=== PATIENT | male | born 1985 | race Two or more races ===

== ENCOUNTER 2020-09-19 19:36 | Inpatient (IN) | payer MEDICAID ==
[~2020-09-19] VITALS: Ht 175.3 cm; Wt 70.3 kg
[2020-09-19 19:40] VITALS: BP 101/56
--- NOTE | 2020-09-19 19:40 | NUR ---
ED Nurse Note: Patient brought in by ambulance [id number] from home d/t n/v for 4 days. Patient also reports bloody stool and hematemesis, patient reports bright red blood in both stool and emesis. Patient reports hx of liver cirrhosis and states he was seen for same symptoms at [facility] and was discharged home. Patient aao x 4 and ambulatory with cane. Patient changed into gown and placed on solar energy system installer. no acute distress noted during assessment.
[2020-09-19] MEDS ORDERED: SandoSTATIN 50mcg Inj IVP ONE (19:45)
[2020-09-19] MEDS ORDERED: Pantoprazole 80 MG in NS 250 ML IV ONE (19:45)
[2020-09-19] MEDS ORDERED: Pantoprazole Inj IVP ONE (19:45)
[2020-09-19] MEDS ORDERED: cefTRIAXone 2 GM in NS 55 ML IVPB ONE (19:45)
--- NOTE | 2020-09-19 19:48 | Emergency Room Report ---
History of Present Illness General Chief Complaint: Diarrhea Source: Patient, EMS Present Illness HPI Patient is a 35-year-old male past medical history of liver cirrhosis, former alcohol abuser and hepatitis C presents to the ER complaining of bloody diarrhea. Patient states that he had several episodes of bloody diarrhea since this morning and this evening had onset of nausea and bloody vomitus. Patient d enies any fever or chills. He denies any abdominal pain. Patient states he has a history of similar symptoms in the past. Patient states that he has been seen at [facility] and is waiting to be placed on the liver transplant list. Patient states that his last drink was back in June. He denies any tremors. He denies any chest pain or shortness of breath. Allergies: Coded Allergies: No Known Allergies (Unverified , 09/19/20) COVID-19 Screening Contact w/high risk pt: No Experienced COVID-19 symptoms?: Yes COVID-19 Testing performed MANAGER BASKETBALL: No Patient History Reviewed Nursing Documentation: PMH: Agreed; PSxH: Agreed Nursing Documentation-PMH Past Medical History: No History, Except For Review of Systems All Other Systems: negative except mentioned in HPI Physical Exam Vital Signs Date Time Temp Pulse Resp B/P (MAP) Pulse Ox O2 Delivery O2 Flow Rate FiO2 09/19/20 19:29 98.6 90 20 101/56 (71) 100 Room Air Sp02 EP Interpretation: reviewed, normal General Appearance: no apparent distress, alert, GCS 15, non-toxic Head: normocephalic, atraumatic Eyes: bilateral eye normal inspection, bilateral eye PERRL, bilateral eye Scleral Injection ENT: hearing grossly normal, normal pharynx, no angioedema, normal voice Neck: full range of motion, supple/symm/no masses Respiratory: chest non-tender, lungs clear, normal breath sounds, speaking full sentences Cardiovascular #1: no edema, tachycardia Gastrointestinal: normal bowel sounds, non tender, soft, non-distended, no g uarding, no rebound Rectal: deferred Genitourinary: no CVA tenderness Musculoskeletal: normal range of motion Neurologic: kiln firer III-XII nml as tested, oriented x3 Psychiatric: no suicidal/homicidal ideation Skin: jaundice Lymphatic: no adenopathy Procedures Critical Care Time Critical Care Time Total critical care time: Approximately 35 minutes. Due to a high probability of clinically significant, life threatening deterioration, the patient required my highest level of preparedness to intervene emergently and I personally spent this critical care time directly and personally managing the patient. This critical care time included obtaining a history; examining the patient; pulse oximetry; ordering and review of studies; arranging urgent treatment with development of a management plan; evaluation of patient's response to treatment; frequent reassessment; and, discussions with other providers.This critical care time was performed to assess and manage the high probability of imminent, life- threatening deterioration that could result in multi-organ failure. It was exclusive of separately billable procedures and treating other patients and teaching time. Please see MDM section and the rest of the note for further information on patient assessment and treatment. Medical Decision Making Diagnostic Impression: Primary Impression: GI bleed Additional Impressions: Hyponatremia Anemia Sepsis Leukocytosis ER Course Patient has leukocytosis with white count of 20. Patient has elevated lactate to 2.8. 30 cc/kg of IV fluids have been administered as well as cefepime and Flagyl. Patient started on Protonix and octreotide. Patient is anemic and 2 units of packed red blood cells have been ordered. Patient will be admitted for further treatment and evaluation. Laboratory Tests Test 09/19/20 19:45 White Blood Count 21.3 K/UL (4.8-10.8) H Red Blood Count 2.04 M/UL (4.70-6.10) L Hemoglobin 7.1 G/DL (14.2-18.0) L Hematocrit 19.7 % (42.0-52.0) L Mean Corpuscular Volume 97 FL (80-99) Mean Corpuscular Hemoglobin 35.0 PG (27.0-31.0) H Mean Corpuscular Hemoglobin Concent 36.2 G/DL (32.0-36.0) H Red Cell Distribution Width 19.6 % (11.6-14.8) H Platelet Count 134 K/UL (150-450) L Mean Platelet Volume 7.9 FL (6.5-10.1) Neutrophils (%) (Auto) % (45.0-75.0) Lymphocytes (%) (Auto) % (20.0-45.0) Monocytes (%) (Auto) % (1.0-10.0) Eosinophils (%) (Auto) % (0.0-3.0) Basophils (%) (Auto) % (0.0-2.0) Neutrophils % (Manual) Pending Lymphocytes % (Manual) Pending Platelet Estimate Pending Platelet Morphology Pending Prothrombin Time Pending Prothrombin Time INR Pending Activated Partial Thromboplast Time Pending Sodium Level 128 MMOL/L (136-145) L Potassium Level 4.1 MMOL/L (3.5-5.1) Chloride Level 95 MMOL/L (98-107) L Carbon Dioxide Level 22 MMOL/L (21-32) Anion Gap 11 mmol/L (5-15) Blood Urea Nitrogen 20 mg/dL (7-18) H Creatinine 1.4 MG/DL (0.55-1.30) H Estimated Glomerular Filtration Rate 57.3 mL/min (>60) Glucose Level 123 MG/DL (74-106) H Lactic Acid Level 2.80 mmol/L (0.4-2.0) H Calcium Level 8.2 MG/DL (8.5-10.1) L Phosphorus Level 4.5 MG/DL (2.5-4.9) Magnesium Level 1.9 MG/DL (1.8-2.4) Total Bilirubin 20.7 MG/DL (0.2-1.0) H Direct Bilirubin 14.9 MG/DL (0.0-0.3) H Aspartate Amino Transferase (AST) 190 U/L (15-37) H Alanine Aminotransferase (ALT) 102 U/L (12-78) H Alkaline Phosphatase 179 U/L (46-116) H Ammonia 49 umol/L (11-32) H Total Protein 7.6 G/DL (6.4-8.2) Albumin 1.7 G/DL (3.4-5.0) L Globulin 5.9 g/dL Albumin/Globulin Ratio 0.3 (1.0-2.7) L Lipase 200 U/L (73-393) EKG Diagnostic Results Troponin ordered: No - ordered for GI bleed EKG Time: 19:53 EP Interpretation: Anette Ron MD Rate: tachycardiac - 101 bpm Rhythm: other - Sinus tachycardia ST Segments: no acute changes ASA given to the pt in ED: No Rhythm Strip Diag. Results Rhythm Strip Time: 19:59 EP Interpretation: yes - Anette Ron MD Rate: 103 bpm Rhythm: no PVC's, no ectopy, other - Sinus tachycardia Last Vital Signs Date Time Temp Pulse Resp B/P (MAP) Pulse Ox O2 Delivery O2 Flow Rate FiO2 09/19/20 19:29 98.6 90 20 101/56 (71) 100 Room Air Disposition: ADMITTED INPATIENT - SDU Condition: Critical Physician Consult: Dr. Pena Additional Instructions: Please note that this report is being documented using DRAGON technology. This can lead to erroneous entry secondary to incorrect interpretation by the dictating instrument. Sepsis Event Note Evaluation Current Stage of Sepsis: Sepsis Possible Source: GI Tract/Intra-Abdominal Focused Exam Allergies: Coded Allergies: No Known Allergies (Unverified , 09/19/20) Date Exam Occurred: Sep 19, 2020 Time Exam Occurred: 21:16 Laboratory Studies Laboratory Tests Test 09/19/20 19:45 White Blood Count 21.3 K/UL (4.8-10.8) H Red Blood Count 2.04 M/UL (4.70-6.10) L Hemoglobin 7.1 G/DL (14.2-18.0) L Hematocrit 19.7 % (42.0-52.0) L Mean Corpuscular Volume 97 FL (80-99) Mean Corpuscular Hemoglobin 35.0 PG (27.0-31.0) H Mean Corpuscular Hemoglobin Concent 36.2 G/DL (32.0-36.0) H Red Cell Distribution Width 19.6 % (11.6-14.8) H Platelet Count 134 K/UL (150-450) L Mean Platelet Volume 7.9 FL (6.5-10.1) Neutrophils (%) (Auto) % (45.0-75.0) Lymphocytes (%) (Auto) % (20.0-45.0) Monocytes (%) (Auto) % (1.0-10.0) Eosinophils (%) (Auto) % (0.0-3.0) Basophils (%) (Auto) % (0.0-2.0) Neutrophils % (Manual) Pending Lymphocytes % (Manual) Pending Platelet Estimate Pending Platelet Morphology Pending Prothrombin Time Pending Prothromb Time International Ratio Pending Activated Partial Thromboplast Time Pending Sodium Level 128 MMOL/L (136-145) L Potassium Level 4.1 MMOL/L (3.5-5.1) Chloride Level 95 MMOL/L (98-107) L Carbon Dioxide Level 22 MMOL/L (21-32) Anion Gap 11 mmol/L (5-15) Blood Urea Nitrogen 20 mg/dL (7-18) H Creatinine 1.4 MG/DL (0.55-1.30) H Estimat Glomerular Filtration Rate 57.3 mL/min (>60) Glucose Level 123 MG/DL (74-106) H Lactic Acid Level 2.80 mmol/L (0.4-2.0) H Calcium Level 8.2 MG/DL (8.5-10.1) L Phosphorus Level 4.5 MG/DL (2.5-4.9) Magnesium Level 1.9 MG/DL (1.8-2.4) Total Bilirubin 20.7 MG/DL (0.2-1.0) H Direct Bilirubin 14.9 MG/DL (0.0-0.3) H Aspartate Amino Transf (AST/SGOT) 190 U/L (15-37) H Alanine Aminotransferase (ALT/SGPT) 102 U/L (12-78) H Alkaline Phosphatase 179 U/L (46-116) H Ammonia 49 umol/L (11-32) H Total Protein 7.6 G/DL (6.4-8.2) Albumin 1.7 G/DL (3.4-5.0) L Globulin 5.9 g/dL Albumin/Globulin Ratio 0.3 (1.0-2.7) L Lipase 200 U/L (73-393) Vital Signs Last 24 Hour Vital Signs Date Time Temp Pulse Resp B/P (MAP) Pulse Ox O2 Delivery O2 Flow Rate FiO2 09/19/20 19:29 98.6 90 20 101/56 (71) 100 Room Air Respiratory Exam: Clear Cardiovascular Exam: RRR Capillary Refill: Less Than 2 Seconds Peripheral Pulse: Anette Posadas M.D. Sep 19, 2020 19:48
[2020-09-19] MEDS: Octreotide Acetate 500 MCG in Sodium Chloride 499 ML IV SCH (19:55)
[2020-09-19 20:20] LABS: HEMATOCRIT 19.7 % (42.0-52.0); HEMOGLOBIN 7.1 G/DL (14.2-18.0); MEAN CORPUSCULAR VOLUME 97 FL (80-99); PLATELET COUNT 134 K/UL (150-450); RED BLOOD COUNT 2.04 M/UL (4.70-6.10); RED CELL DISTRIBUTION WIDTH 19.6 % (11.6-14.8); WHITE BLOOD COUNT 21.3 K/UL (4.8-10.8)
[2020-09-19 20:25] LABS: INR 2.3 (0.9-1.1)
[2020-09-19 20:40] LABS: CALCIUM 8.2 MG/DL (8.5-10.1); CREATININE 1.4 MG/DL (0.55-1.30); POTASSIUM 4.1 MMOL/L (3.5-5.1)
[2020-09-19 20:57] LABS: ALBUMIN 1.7 G/DL (3.4-5.0); ALBUMIN/GLOBULIN RATIO 0.3 (1.0-2.7); BILIRUBIN,TOTAL 20.7 MG/DL (0.2-1.0); PHOSPHORUS 4.5 MG/DL (2.5-4.9)
--- NOTE | 2020-09-19 21:09 | NUR ---
ED Nurse Note: Patient unable to provide urine sample at this time, provided urinal to patient.
[2020-09-19] MEDS ORDERED: FOLIC ACID1 MG ORAL (22:26)
[2020-09-19] MEDS ORDERED: PROTONIX40 MG ORAL (22:26)
[2020-09-19] MEDS ORDERED: LACTULOSE20 GM/301 ORAL (22:26)
[2020-09-19] MEDS ORDERED: SODIUM BICARBO650 MG PO (22:26)
[2020-09-19] MEDS ORDERED: SYNTHROID25 MCG ORAL (22:26)
[2020-09-19] MEDS ORDERED: FUROSEMIDE40 MG ORAL (22:26)
[2020-09-19] MEDS ORDERED: SPIRONOLACTONE100 MG ORAL (22:26)
[2020-09-19] MEDS ORDERED: CIPROFLOXACIN500 M2 ORAL (22:26)
--- NOTE | 2020-09-19 22:57 | NUR ---
ED Nurse Note: Urine collected.
--- NOTE | 2020-09-19 22:57 | NUR ---
Shirley low in EDM - 09/19/20 at 2257 by ANIL ED Nurse Note: EVERETT at bedside
[2020-09-19 23:17] LABS: APPEARANCE,URINE SLIGHTLY CLOUDY; BILIRUBIN, URINE 3+ (NEGATIVE); COLOR,URINE BROWN; GLUCOSE, URINE (UA) NEGATIVE (NEGATIVE); KETONES,URINE 1+ (NEGATIVE); LEUKOCYTE ESTERASE ,URINE 1+ (NEGATIVE); NITRITE,URINE POSITIVE (NEGATIVE); PH,URINE 6.5 (4.5-8.0); PROTEIN,URINE 2+ (NEGATIVE); UROBILINOGEN,URINE 8 MG/DL (0.0-1.0)
[2020-09-20] VITALS (11 sets, daily range): BP systolic 100–115; BP diastolic 46–67
--- NOTE | 2020-09-20 02:45 | NUR ---
ED Nurse Note: messaged Dr. Pena for bridging orders
--- NOTE | 2020-09-20 04:45 | NUR ---
ED Nurse Note: Patient actively vomiting bloody emesis approximately 150ml, ERMD aware.
[2020-09-20] MEDS: Octreotide Acetate 500 MCG in Sodium Chloride 499 ML IV SCH ×2 (05:49→13:26)
--- NOTE | 2020-09-20 06:59 | NUR ---
ED Nurse Note: Report given to CAROLINA Waggoner.
--- NOTE | 2020-09-20 07:50 | NUR ---
ED Nurse Note: pt was transferred on sdu under the care of dr rivers. report was given to gabe rascon in sdu. Pt was transferred on stable condition; all belongings was sent with pt
--- NOTE | 2020-09-20 08:00 | NUR ---
NURSE HAND-OFF REPORT: Important Events on Shift:new admission Patient Status: full code Diet: NPO Pending Orders: Y Pending Results/Labs:N Pending MD notification:Dr. Pena Latest Vital Signs: Temperature 97.9 , Pulse 101 , B/P 101 /56 , Respiratory Rate 17 , O2 SAT 100 , Room Air, O2 Flow Rate . Vital Sign Comment: stable EKG Rhythm: Sinus Rhythm Rhythm change?: MD Notified?: - MD Response: Latest Julian Fall Score: Fall Risk: Safety Measures: Call light , Bed Alarm , Side Rails , Bed position . Fall Precautions: Report given to CAROLINA Martinez.
--- NOTE | 2020-09-20 08:15 | NUR ---
NURSE NOTES: Received report from CAROLINA Waggoner- pt. brought up from ER- belongings list signed by am Charge Lucio Blunt- per endorsement, pt. in bed awake- A/O x's4- able to make needs known, denies pain but having symptoms of nausea, bed alarm on, side rails up x's 3 and safety brakes engaged- call light within easy reach, playground monitor placed, full body assessment done- skin intact, pt. aware not to ambulate as he is feeling weak and fall risk, pt. appears to be resting comfortably, pt. has urinal at bedside and within easy reach, Left and right AC 20G both 20G IV intact and patent- Sandostatin continued from ER- safety measures continued, will continue to monitor pt. and with plan of care. Addendum: 09/20/20 at 0930 by REBECA LOUISE RN RN no bleeding noted at this time. Addendum: 09/20/20 at 1128 by REBECA LOUISE RN RN eyes appear jaundiced in color.
--- NOTE | 2020-09-20 08:59 | NUR ---
NURSE NOTES: left message for DR. Pena- for admission orders- awaiting for call back from doctor.
--- NOTE | 2020-09-20 09:26 | NUR ---
NURSE NOTES: left message with DR. Pena's exchange with Debbi- She will Isela doctor Raghav for admitting orders- awaiting for call back from doctor. Doctor Pena is out of town- per material control analyst.
--- NOTE | 2020-09-20 10:01 | NUR ---
NURSE NOTES: DR. Pena- calling in with admission orders- orders re-read and carried out.
--- NOTE | 2020-09-20 10:59 | NUR ---
NURSE NOTES: per DR. Reyez at bedside to order 1 unit FFP, stat covid test and to cancel Sub Q Vitamin K- orders carried out.
--- NOTE | 2020-09-20 11:12 | Consultation ---
History of Present Illness General Date patient seen: Sep 20, 2020 Chief Complaint: Diarrhea Present Illness HPI 35-year-old male past medical history of liver cirrhosis,r alcohol abuser and hepatitis C presents to the ER complaining of bloody diarrhea since this morning and this evening had onset of nausea and bloody vomitus. Patient denies any fever or chills. He denies any abdominal pain. Patient states he has a history of similar symptoms in the past. Allergies: Coded Allergies: No Known Allergies (Unverified , 09/19/20) Medication History Scheduled Ciprofloxacin Hcl* (Ciprofloxacin Hcl*), 500 MG ORAL DAILY, (Reported) Folic Acid* (Folic Acid*), 1 MG ORAL DAILY, (Reported) Furosemide* (Lasix*), 40 MG ORAL DAILY, (Reported) Levothyroxine Sodium* (Synthroid*), 25 MCG ORAL DAILY, (Reported) Pantoprazole* (Protonix*), 40 MG ORAL DAILY, (Reported) Sodium Bicarbonate* (Nahco3*), 600 MG PO BID, (Reported) Spironolactone* (Spironolactone*), 50 MG ORAL DAILY, (Reported) Miscellaneous Medications Lactulose (Lactulose*), 30 ML ORAL, (Reported) Patient History Healthcare decision maker Resuscitation status Advanced Directive on File Past Medical/Surgical History Past Medical/Surgical History: (1) Hepatitis C (2) Alcoholic liver disease (3) Liver cirrhosis, alcoholic Review of Systems All Other Systems: negative except mentioned in HPI Physical Exam General Appearance: thin Lines, tubes and drains: peripheral HEENT: normocephalic, atraumatic Neck: non-tender, normal alignment Respiratory/Chest: chest wall non-tender, lungs clear Breasts: no masses Cardiovascular/Chest: normal peripheral pulses, regular rhythm Abdomen: normal bowel sounds, non tender Last 24 Hour Vital Signs Date Time Temp Pulse Resp B/P (MAP) Pulse Ox O2 Delivery O2 Flow Rate FiO2 09/20/20 08:51 Room Air 09/20/20 08:18 97 09/20/20 08:00 98.1 95 18 105/48 (67) 100 09/20/20 07:50 97.9 100 18 105/58 100 Room Air 09/19/20 19:40 97.9 101 17 101/56 100 Room Air 09/19/20 19:29 98.6 90 20 101/56 (71) 100 Room Air Intake and Output 09/19/20 09/20/20 19:00 07:00 Intake Total 2155 ml Balance 2155 ml Intake Oral 0 ml IV Total 2155 ml Laboratory Tests Test 09/19/20 19:45 09/19/20 20:57 09/19/20 22:54 White Blood Count 21.3 K/UL (4.8-10.8) H Red Blood Count 2.04 M/UL (4.70-6.10) L Hemoglobin 7.1 G/DL (14.2-18.0) L Hematocrit 19.7 % (42.0-52.0) L Mean Corpuscular Volume 97 FL (80-99) Mean Corpuscular Hemoglobin 35.0 PG (27.0-31.0) H Mean Corpuscular Hemoglobin Concent 36.2 G/DL (32.0-36.0) H Red Cell Distribution Width 19.6 % (11.6-14.8) H Platelet Count 134 K/UL (150-450) L Mean Platelet Volume 7.9 FL (6.5-10.1) Neutrophils (%) (Auto) % (45.0-75.0) Lymphocytes (%) (Auto) % (20.0-45.0) Monocytes (%) (Auto) % (1.0-10.0) Eosinophils (%) (Auto) % (0.0-3.0) Basophils (%) (Auto) % (0.0-2.0) Differential Total Cells Counted 100 Neutrophils % (Manual) 74 % (45-75) Lymphocytes % (Manual) 12 % (20-45) L Monocytes % (Manual) 6 % (1-10) Eosinophils % (Manual) 4 % (0-3) H Basophils % (Manual) 0 % (0-2) Band Neutrophils 4 % (0-8) Platelet Estimate Decreased L Platelet Morphology Normal Hypochromasia 2+ Anisocytosis 1+ Macrocytosis 1+ Prothrombin Time 23.7 SEC (9.30-11.50) H Prothromb Time International Ratio 2.3 (0.9-1.1) H Activated Partial Thromboplast Time 64 SEC (23-33) H Sodium Level 128 MMOL/L (136-145) L Potassium Level 4.1 MMOL/L (3.5-5.1) Chloride Level 95 MMOL/L (98-107) L Carbon Dioxide Level 22 MMOL/L (21-32) Anion Gap 11 mmol/L (5-15) Blood Urea Nitrogen 20 mg/dL (7-18) H Creatinine 1.4 MG/DL (0.55-1.30) H Estimat Glomerular Filtration Rate 57.3 mL/min (>60) Glucose Level 123 MG/DL (74-106) H Lactic Acid Level 2.80 mmol/L (0.4-2.0) H 2.20 mmol/L (0.66-2.22) Calcium Level 8.2 MG/DL (8.5-10.1) L Phosphorus Level 4.5 MG/DL (2.5-4.9) Magnesium Level 1.9 MG/DL (1.8-2.4) Total Bilirubin 20.7 MG/DL (0.2-1.0) H Direct Bilirubin 14.9 MG/DL (0.0-0.3) H Aspartate Amino Transf (AST/SGOT) 190 U/L (15-37) H Alanine Aminotransferase (ALT/SGPT) 102 U/L (12-78) H Alkaline Phosphatase 179 U/L (46-116) H Ammonia 49 umol/L (11-32) H Total Protein 7.6 G/DL (6.4-8.2) Albumin 1.7 G/DL (3.4-5.0) L Globulin 5.9 g/dL Albumin/Globulin Ratio 0.3 (1.0-2.7) L Lipase 200 U/L (73-393) Urine Color Brown Urine Appearance Slightly cloudy Urine pH 6.5 (4.5-8.0) Urine Specific [place] 1.015 (1.005-1.035) Urine Protein 2+ (NEGATIVE) H Urine Glucose (UA) Negative (NEGATIVE) Urine Ketones 1+ (NEGATIVE) H Urine Blood 1+ (NEGATIVE) H Urine Nitrite Positive (NEGATIVE) H Urine Bilirubin 3+ (NEGATIVE) H Urine Ictotest Positive (NEGATIVE) Urine Urobilinogen 8 MG/DL (0.0-1.0) H Urine Leukocyte Esterase 1+ (NEGATIVE) H Urine RBC 2-4 /HPF (0 - 0) H Urine WBC 10-15 /HPF (0 - 0) H Urine Squamous Epithelial Cells Occasional /LPF Urine Bacteria Moderate /HPF (NONE) H Urine Red Blood Cell Casts 0-2 /LPF (NONE) H Height (Feet): 5 Height (Inches): 9.00 Weight (Pounds): 150 Medications Current Medications Medications (Trade) Dose Ordered Sig/Santino Route PRN Reason Start Time Stop Time Status Last Admin Dose Admin Ceftriaxone Sodium 1 gm/ Dextrose 55 ml @ 110 mls/hr Q24H IVPB 09/20/20 20:00 09/27/20 19:59 Folic Acid (Folate) 1 mg DAILY ORAL 09/21/20 09:00 10/21/20 08:59 Lactulose (Cephulac) 30 gm BID ORAL 09/20/20 11:30 10/20/20 11:29 Levothyroxine Sodium (Synthroid) 25 mcg DAILY@0630 ORAL 09/21/20 06:30 10/21/20 06:29 Octreotide Acetate 500 mcg/ Sodium Chloride 500 ml @ 50 mls/hr Q10H IV 09/20/20 12:00 10/20/20 11:59 Ondansetron HCl (Zofran) 4 mg Q4HR PRN IVP Nausea & Vomiting 09/20/20 10:15 10/20/20 10:14 Pantoprazole 80 mg/Sodium Chloride 250 ml @ 25 mls/hr Q10H IV 09/20/20 12:00 10/20/20 11:59 Phytonadione 1 mg/ Dextrose 55.5 ml @ 222 mls/hr ONCE ONCE IVPB 09/20/20 11:30 09/20/20 11:44 Sodium Chloride 1,000 ml @ 10 mls/hr Q24H ONCE IV 09/19/20 20:30 09/20/20 20:29 09/19/20 20:36 Assessment/Plan Problem List: (1) GI bleed ICD Codes: K92.2 - Gastrointestinal hemorrhage, unspecified SNOMED: 67473380 (2) Anemia ICD Codes: D64.9 - Anemia, unspecified SNOMED: 065181544 (3) Alcoholic liver disease ICD Codes: K70.9 - Alcoholic liver disease, unspecified SNOMED: 71917606 (4) Liver cirrhosis, alcoholic ICD Codes: K70.30 - Alcoholic cirrhosis of liver without ascites SNOMED: 413067600 (5) Hepatitis C ICD Codes: B19.20 - Unspecified viral hepatitis C without hepatic coma SNOMED: 04299032 Assessment/Plan: NPO upper endoscopy GI evaluation Correct coagulopathy prbc prn dvt prophylaxis Anthony St MD Sep 20, 2020 11:12
--- NOTE | 2020-09-20 11:24 | Anethesia Preoperative Eval ---
Anesthesia Pre-op PMH/ROS General Date of Evaluation: Sep 20, 2020 Anesthesiologist: Tommie ASA Score: ASA 3 - E Mallampati Score Class I : Soft palate, uvula, fauces, pillars visible Class II: Soft palate, uvula, fauces visible Class III: Soft palate, base of uvula visible Class IV: Only hard plate visible Mallampati Classification: Class II Surgeon: Aissatou Diagnosis: GI bleed, esophageal varices Surgical Procedure: EGDd Anesthesia History: none Social History: alcohol use - h/o alcohol abuse, in liver failure/cirrhosis Family History: no anesthesia problems Allergies: Coded Allergies: No Known Allergies (Unverified , 09/19/20) Medications: see eMAR Patient NPO?: Yes NPO Date: Sep 20, 2020 NPO Time: 00:00 Past Medical History Cardiovascular: Denies: HTN, CAD, [place], valve dz, arrhythmia, other Pulmonary: Denies: asthma, COPD, [place], other Gastrointestinal/Genitourinary: Reports: GERD, other - liver cirrhosis; Denies: CRI, ESRD Neurologic/Psychiatric: Denies: dementia, CVA, depression/anxiety, TIA, other Endocrine: Denies: DM, hypothyroidism, steroids, other HEENT: Denies: cataract (L), cataract (R), glaucoma, [place] (L), [place]BE (R), other Hematology/Immune: Reports: anemia - acute on chronic, other - hep C; Denies: DVT, bleeding disorder Musculoskeletal/Integumentary: Denies: OA, RA, DJD, DDD, edema, other PSxH Narrative: Denies Anesthesia Pre-op Phys. Exam Physician Exam Last Vital Signs Date Time Temp Pulse Resp B/P (MAP) Pulse Ox O2 Delivery O2 Flow Rate FiO2 09/20/20 08:51 Room Air 09/20/20 08:18 97 09/20/20 08:00 98.1 18 105/48 (67) 100 Constitutional: NAD Cardiovascular: RRR Respiratory: CTA Airway Exam Mallampati Score: Class II MO: limited ROM: limited Anesthesia Pre-op A/P Labs Hematology Test 09/19/20 19:45 White Blood Count 21.3 K/UL (4.8-10.8) H Red Blood Count 2.04 M/UL (4.70-6.10) L Hemoglobin 7.1 G/DL (14.2-18.0) L Hematocrit 19.7 % (42.0-52.0) L Mean Corpuscular Volume 97 FL (80-99) Mean Corpuscular Hemoglobin 35.0 PG (27.0-31.0) H Mean Corpuscular Hemoglobin Concent 36.2 G/DL (32.0-36.0) H Red Cell Distribution Width 19.6 % (11.6-14.8) H Platelet Count 134 K/UL (150-450) L Mean Platelet Volume 7.9 FL (6.5-10.1) Neutrophils (%) (Auto) % (45.0-75.0) Lymphocytes (%) (Auto) % (20.0-45.0) Monocytes (%) (Auto) % (1.0-10.0) Eosinophils (%) (Auto) % (0.0-3.0) Basophils (%) (Auto) % (0.0-2.0) Differential Total Cells Counted 100 Neutrophils % (Manual) 74 % (45-75) Lymphocytes % (Manual) 12 % (20-45) L Monocytes % (Manual) 6 % (1-10) Eosinophils % (Manual) 4 % (0-3) H Basophils % (Manual) 0 % (0-2) Band Neutrophils 4 % (0-8) Platelet Estimate Decreased L Platelet Morphology Normal Hypochromasia 2+ Anisocytosis 1+ Macrocytosis 1+ Coagulation Test 09/19/20 19:45 Prothrombin Time 23.7 SEC (9.30-11.50) H Prothromb Time International Ratio 2.3 (0.9-1.1) H Activated Partial Thromboplast Time 64 SEC (23-33) H Chemistry Test 09/19/20 19:45 09/19/20 20:57 Sodium Level 128 MMOL/L (136-145) L Potassium Level 4.1 MMOL/L (3.5-5.1) Chloride Level 95 MMOL/L (98-107) L Carbon Dioxide Level 22 MMOL/L (21-32) Anion Gap 11 mmol/L (5-15) Blood Urea Nitrogen 20 mg/dL (7-18) H Creatinine 1.4 MG/DL (0.55-1.30) H Estimat Glomerular Filtration Rate 57.3 mL/min (>60) Glucose Level 123 MG/DL (74-106) H Lactic Acid Level 2.80 mmol/L (0.4-2.0) H 2.20 mmol/L (0.66-2.22) Calcium Level 8.2 MG/DL (8.5-10.1) L Phosphorus Level 4.5 MG/DL (2.5-4.9) Magnesium Level 1.9 MG/DL (1.8-2.4) Total Bilirubin 20.7 MG/DL (0.2-1.0) H Direct Bilirubin 14.9 MG/DL (0.0-0.3) H Aspartate Amino Transf (AST/SGOT) 190 U/L (15-37) H Alanine Aminotransferase (ALT/SGPT) 102 U/L (12-78) H Alkaline Phosphatase 179 U/L (46-116) H Ammonia 49 umol/L (11-32) H Total Protein 7.6 G/DL (6.4-8.2) Albumin 1.7 G/DL (3.4-5.0) L Globulin 5.9 g/dL Albumin/Globulin Ratio 0.3 (1.0-2.7) L Lipase 200 U/L (73-393) Risk Assessment & Plan Assessment: ASA IIIE Plan: MAC Status Change Before Surgery: No Pre-Antibiotics Drug: N/A Lolis Reilly MD Sep 20, 2020 11:24
[2020-09-20] MEDS ORDERED: Phytonadione 10 mg/mL 1ml amp SUBQ SCH (11:30)
[2020-09-20] MEDS ORDERED: Phytonadione 1 MG in D5W 55 ML IVPB ONE (11:30)
[2020-09-20] MEDS ORDERED: LORazepam Inj 2mg/ml 1ml IV PRN (11:30)
[2020-09-20] MEDS ORDERED: Labetalol 5mg/ml 20ml vial IV PRN (11:30)
[2020-09-20] MEDS ORDERED: LR 1000ml 1,000 ML IVLG SCH (11:30)
[2020-09-20] MEDS ORDERED: DiphenhydrAMINE 50mg/ml Inj IVP PRN (11:30)
--- NOTE | 2020-09-20 11:30 | NUR ---
NURSE NOTES: called supervisors office spoke with Daya- regarding rapid covid test ordered by dr. bell- she will call doctor Angela and f/u.
[2020-09-20] MEDS: Lactulose 20gm/30ml UDC ORAL SCH ×2 (11:38→17:14)
[2020-09-20] MEDS ORDERED: Octreotide Acetate 500 MCG in Sodium Chloride 499 ML IV SCH (12:00)
[2020-09-20] MEDS ORDERED: Pantoprazole 80 MG in NS 250 ML IV SCH (12:00)
--- NOTE | 2020-09-20 12:04 | NUR ---
NURSE NOTES: pt. aware he is getting EGD- procedure explained by DR. Reyez. Addendum: 09/20/20 at 1205 by REBECA LOUISE RN RN pt. signed consent.
--- NOTE | 2020-09-20 12:12 | NUR ---
NURSE NOTES: per Apolonia at blood bank she will let me know when pts FFP is ready and covid test is ready.
--- NOTE | 2020-09-20 12:16 | Pre-Procedure Note/Attestation ---
Pre-Procedure Note/Attestation Complete Prior to Procedure Planned Procedure: not applicable Procedure Narrative: egd Indications for Procedure Pre-Operative Diagnosis: GIB Attestation I attest that I discussed the nature of the procedure; its benefits; risks and complications; and alternatives (and the risks and benefits of such alternatives), prior to the procedure, with the patient (or the patient's legal loss prevention representative). I attest that, if there was a reasonable possibility of needing a blood transfusion, the patient (or the patient's legal loss prevention representative) was given the [facility] standardized written summary, pursuant to the Edgar Edwardo Blood Safety Act ([place] Health and Safety Code # 1645, as amended). I attest that I re-evaluated the patient just prior to the surgery and that there has been no change in the patient's H&P, except as documented below: Arpit Reyez MD Sep 20, 2020 12:16
[2020-09-20 12:19] LABS: HEMATOCRIT 20.1 % (42.0-52.0); MEAN CORPUSCULAR VOLUME 98 FL (80-99); PLATELET COUNT 100 K/UL (150-450); RED BLOOD COUNT 2.05 M/UL (4.70-6.10); RED CELL DISTRIBUTION WIDTH 18.6 % (11.6-14.8); WHITE BLOOD COUNT 19.6 K/UL (4.8-10.8)
[2020-09-20 12:24] LABS: BASOPHILS % (AUTO) 0.9 % (0.0-2.0); EOSINOPHILS % (AUTO) 0.8 % (0.0-3.0); MONOCYTES % (AUTO) 6.5 % (1.0-10.0); NEUTROPHILS % (AUTO) 83.8 % (45.0-75.0)
[2020-09-20 12:50] LABS: ALBUMIN 1.4 G/DL (3.4-5.0); ALBUMIN/GLOBULIN RATIO 0.3 (1.0-2.7); BILIRUBIN,TOTAL 17.1 MG/DL (0.2-1.0); CALCIUM 7.9 MG/DL (8.5-10.1); CREATININE 1.4 MG/DL (0.55-1.30); PHOSPHORUS 5.1 MG/DL (2.5-4.9)
--- NOTE | 2020-09-20 12:50 | NUR ---
NURSE NOTES: pre transfusion VS taken- pt.remains stable- see VS in chart-will continue to monitor pt.and with plan of care.
--- NOTE | 2020-09-20 12:52 | NUR ---
CASE MANAGEMENT:INITIAL REVIEW 35 YR OLD MALE BIBA FROM HOME CC;DIARRHEA PMHx;HEP C. CIRRHOSIS (ON TRANSPLANT LIST) SI;GI BLEED. ANEMIA. HYPONATREMIA. SEPSIS. LEUKOCYTOSIS. 98.6 101 18 101/56 100% ON RA WBC 21.3 H/H 7.1/19.7 PLT 134 NA 128 BUN 20 CR 1.4 LAC ACID 2.80 T-BILI 20.7 AST 190 ALT 102 ALP 179 ALB 1.7 PT 23.7 INR 2.3 APTT 64 UA+ PROTEIN, KETONES, BLOOD, NITRITE, BILIRUBIN, UROBILINOGEN, LEUKOCYTE ESTERASE, RBC, WBC, BACTERIA, RBC CASTS RAPID COVID ~ NEGATIVE IS;ZOFRAN IV X2 PROTONIX IV OCTREOTIDE ACETATE IV IVF NS BOLUS X2 ROCEPHIN IV FLAGYL IV ADMITTED TO [facility];PATIENT IS FROM HOME
[2020-09-20 12:53] LABS: POTASSIUM 6.3 MMOL/L (3.5-5.1)
[2020-09-20 12:54] LABS: BILIRUBIN,DIRECT 12.6 MG/DL (0.0-0.3)
--- NOTE | 2020-09-20 12:59 | NUR ---
NURSE NOTES: lab calling regarding rapid covid test negative and critical potassium 6.3- made aware by Levi Deleon charge- she will notify DR. Pena or critical results.
--- NOTE | 2020-09-20 13:10 | NUR ---
NURSE NOTES: calling back- would like redraw for lab K 6.3- will f/u. Addendum: 09/20/20 at 1314 by REBECA LOUISE RN RN STAT lab ordered ny Addendum: 09/20/20 at 1314 by REBECA LOUISE RN RN stat lab ordered by Levi Deleon.
--- NOTE | 2020-09-20 13:14 | NUR ---
NURSE NOTES: 15 minutes after transfusion VS taken- see chart for vital signs. pt. remains stable -will continue to monitor pt. and with plan of care.
--- NOTE | 2020-09-20 13:34 | NUR ---
NURSE NOTES: Dr. Pruitt spoke with this nurse, informed this nurse to inform primary nurse to enter STAT potassium lab now. Order entered. Ntoed.
[2020-09-20 13:40] LABS: HEMATOCRIT 20.4 % (42.0-52.0); MEAN CORPUSCULAR VOLUME 101 FL (80-99); PLATELET COUNT 88 K/UL (150-450); RED BLOOD COUNT 2.03 M/UL (4.70-6.10); RED CELL DISTRIBUTION WIDTH 18.8 % (11.6-14.8); WHITE BLOOD COUNT 19.9 K/UL (4.8-10.8)
[2020-09-20 13:41] LABS: EOSINOPHILS % (AUTO) 0.8 % (0.0-3.0); MONOCYTES % (AUTO) 8.2 % (1.0-10.0); NEUTROPHILS % (AUTO) 82.3 % (45.0-75.0)
[2020-09-20 13:42] LABS: BASOPHILS % (AUTO) 0.8 % (0.0-2.0)
--- NOTE | 2020-09-20 13:51 | Consultation ---
Consult Note Consult Note I am asked to evaluate the patient at the request of Dr. Pena For renal failure and electrolyte imbalances Patient interviewed and examined Data reviewed Full note to follow Chief Complaint: Diarrhea Patient is a 35-year-old male past medical history of liver cirrhosis, former alcohol abuser and hepatitis C presents to the ER complaining of bloody diarrhea. Patient states that he had several episodes of bloody diarrhea since this morning and this evening had onset of nausea and bloody vomitus. Patient denies any fever or chills. He denies any abdominal pain. Patient states he has a history of similar symptoms in the past. Patient states that he has been seen at [facility] and is waiting to be placed on the liver transplant list. Patient states that his last drink was back in June. He denies any tremors. He denies any chest pain or shortness of breath. Allergies: No Known Allergies (Unverified , 09/19/20) COVID-19 Screening Contact w/high risk pt: No Experienced COVID-19 symptoms?: Yes COVID-19 Testing performed GEAR DESIGN ENGINEER: No Vital Signs Date Time Temp Pulse Resp B/P (MAP) Pulse Ox O2 Delivery O2 Flow Rate FiO2 09/19/20 19:29 98.6 90 20 101/56 (71) 100 Room Air Physical Exam General Appearance: no apparent distress EENT: normal ENT inspection Neck: supple Cardiovascular: normal rate Respiratory/Chest: decreased breath sounds Abdomen: normal bowel sounds, non tender, soft Extremities: non-tender LABORATORY STUDIES: WBC 19.6, hemoglobin 7.0, hematocrit 20.1, platelets 100,000. Sodium 128, potassium 4.1, chloride 95, CO2 20, BUN 20, creatinine 1.4, glucose 123, AST elevated 190, ALT elevated 102, alkaline phosphatase elevated 179. . Assessment/Plan Acute renal failure Hyponatremia and electrolyte imbalances GI bleed, severe anemia Sepsis, leukocytosis Liver cirrhosis, alcoholic, hepatitis C Hydrate Monitor electrolytes IV Protonix Monitor hemoglobin and hematocrit Anemia work-up Per GI Per consultants Per orders Santo Pruitt MD Sep 20, 2020 13:51
[2020-09-20] MEDS ORDERED: NS 500ML IVPB ONE (14:00)
[2020-09-20] MEDS ORDERED: Lidocaine 1% MPF 10mg/ml 5ml ONE (14:00)
--- NOTE | 2020-09-20 14:17 | Endoscopy Procedure Note ---
Endoscopy Procedure Note General Indication for Procedure: gib Procedures Performed: EGD Operative Findings/Diagnosis: esoph ulcer Specimen: none Pt Tolerated Procedure Well: Yes Estimated Blood Loss: none Anesthesia Anesthesiologist: michelet Anesthesia: MAC Inserted Devices Implant(s) used?: No GI Core Measures 50 yrs or older w/o bx or poly: Not Applicable 10yrs. F/U recommended: Not Applicable Arpit Reyez MD Sep 20, 2020 14:17
[2020-09-20 14:23] LABS: ALANINE AMINOTRANSFERASE 89 U/L (12-78); ALBUMIN 1.7 G/DL (3.4-5.0); ALBUMIN/GLOBULIN RATIO 0.3 (1.0-2.7); ALKALINE PHOSPHATASE 142 U/L (46-116); ANION GAP 11 mmol/L (5-15); ASPARTATE AMINO TRANSFERASE 180 U/L (15-37); BILIRUBIN,DIRECT 12.4 MG/DL (0.0-0.3); BILIRUBIN,TOTAL 17.8 MG/DL (0.2-1.0); BLOOD UREA NITROGEN 26 mg/dL (7-18); CALCIUM 8.5 MG/DL (8.5-10.1); CARBON DIOXIDE 19 MMOL/L (21-32); CHLORIDE 103 MMOL/L (98-107); CREATININE 1.3 MG/DL (0.55-1.30); PHOSPHORUS 5.1 MG/DL (2.5-4.9); POTASSIUM 5.9 MMOL/L (3.5-5.1); SODIUM 132 MMOL/L (136-145)
--- NOTE | 2020-09-20 14:24 | Immediate Post-Op Evaluation ---
Immediate Post-Op Evalulation Immediate Post-Op Evalulation Procedure: EGD Date of Evaluation: Sep 20, 2020 Pain Score (1-10): 0 Nausea: No Vomiting: No Complications 0 Patient Status: awake, reacts, patent, none Hydration Status: adequate Drug: N/A Lolis Reilly MD Sep 20, 2020 14:24
--- NOTE | 2020-09-20 14:26 | 48 Hour Post Anesthesia Eval ---
Post Anesthesia Evaluation Procedure: EGD Date of Evaluation: Sep 20, 2020 Airway: patent Nausea: No Vomiting: No Pain Intensity: 0 Hydration Status: adequate Cardiopulmonary Status: at baseline Mental Status/LOC: patient returned to baseline Post-Anesthesia Complications: 0 Follow-up care needed: N/A - further care as per primary team Lolis Reilly MD Sep 20, 2020 14:26
--- NOTE | 2020-09-20 15:10 | NUR ---
NURSE NOTES: pt. back from GI lab-appears to have tolerated procedure well for EGD- A/O x's4- per Siobhan RN- pts post transfusion for FFP VS was documented by RN in GI lab on blood bank paper. Per Siobhan per EGD report pt. has Distal Esophageal ulcer and bleeding- clip was placed- bleeding now stopped. Portal Hypotensive gastropathy b/c of liver cirrhosis. will continue to monitor pt. and with plan of care- per CAROLINA Mccann RN to keep pt. NPO per DR. Reyez.
--- NOTE | 2020-09-20 16:09 | NUR ---
NURSE NOTES: left message for DR. Pena regarding K redraw results now 5.9 and HGB 7.0- awaiting for call back from doctor.
--- NOTE | 2020-09-20 16:53 | NUR ---
NURSE NOTES: per DR. Pena to order Kayexalate 30grams PO x's1 dose- orders carried.
[2020-09-20] MEDS ORDERED: Sodium Polystyrene Sulfonate 15gm Powder ORAL SCH (17:00)
--- NOTE | 2020-09-20 17:30 | Procedure Note ---
DATE OF PROCEDURE: 09/20/2020 ENDOSCOPIST: Arpit Reyez M.D. ANESTHESIOLOGIST: Lolis Reilly M.D. PROCEDURE PERFORMED: Upper endoscopy with hemostasis. INSTRUMENT USED: Olympus adult flexible upper endoscope. INDICATIONS FOR PROCEDURE: Upper GI bleeding. The procedure, risks, benefits, and possible consequences, including hemorrhage, aspiration, perforation and infection, and alternative treatments, were explained to the patient/legal guardian by Dr. Arpit Reyez and the patient/legal guardian understood and accepted these risks. DESCRIPTION OF PROCEDURE: After informed consent was obtained and the patient was adequately sedated, the Olympus upper endoscope was advanced through the mouth into the second portion of the duodenum and retroflexion maneuver was performed in the stomach. The patient had evidence of portal hypertensive gastropathy. The patient had no obvious esophageal or gastric varices. At the GE junction, there was an ulcer with a visible vessel, most probably the source of bleeding. That ulcer was clipped using 1 Hemoclip. The patient tolerated the procedure very well without any complication. SUMMARY OF FINDINGS: 1. Status post successful Hemoclip-assistance hemostasis of ulcer at the GE junction. 2. Portal hypertensive gastropathy. 3. No obvious esophageal or gastric varices. RECOMMENDATIONS: 1. Keep NPO. 2. Monitor labs. 3. Transfuse as needed to keep hemoglobin above 7. 4. Correct coagulopathy. 5. We will start feeding tomorrow if the patient is stable. Arpit Reyez M.D. DR: MIRIAM JOB#: [id number] CC:
--- NOTE | 2020-09-20 17:48 | Diagnostic Imaging Report ---
Indication: Bilateral lower extremity pain Technique: Grayscale and duplex images of the bilateral lower extremity veins Comparison: None Findings: Bilaterally, grayscale and duplex images demonstrate no evidence of intraluminal thrombus. Normal phasic Doppler waveforms, demonstrating normal augmentation response and no evidence of valvular insufficiency. Greater saphenous vein(s) and tibial veins are patent. Normal compressibility. Impression: Negative for evidence of lower extremity deep venous thrombosis bilaterally
--- NOTE | 2020-09-20 17:57 | Diagnostic Imaging Report ---
Indication: Chest pain Technique: One view of the chest Comparison: none Findings: Lungs and pleural spaces are clear. Heart size is normal. Impression: No acute process
[2020-09-20] MEDS ORDERED: Lactulose 20gm/30ml UDC ORAL SCH (18:00)
--- NOTE | 2020-09-20 18:10 | NUR ---
NURSE NOTES: pt. noted to have bloody bowel movement- moderate amount- will notify MD.
--- NOTE | 2020-09-20 18:55 | NUR ---
NURSE HAND-OFF REPORT: Important Events on Shift: stable Patient Status: EGD, GI bleed, Diet: NPO Pending Orders: Pending Results/Labs: Pending MD notification: Latest Vital Signs: Temperature 98.0 , Pulse 85 , B/P 115 /58 , Respiratory Rate 18 , O2 SAT 100 , Room Air, O2 Flow Rate 3 . Vital Sign Comment: EKG Rhythm: Sinus Rhythm Rhythm change?: N MD Notified?: - MD Response: Latest Julian Fall Score: 45 Fall Risk: High Risk Safety Measures: Call light Within Reach, Bed Alarm Zone 3, Side Rails Side Rails x3, Bed position Low and Locked. Fall Precautions: Yellow Socks Yellow Gown Door Sign Patient Fall Education Report given to Levi Boone- pt. remains stable- aware to f/u on if pt. needs blood transfusion and bloody diarrhea.
--- NOTE | 2020-09-20 18:57 | NUR ---
NURSE NOTES: left message for Dr. Pena regarding- if he would like to transfuse pt. and regarding bloody bowel movements- awaiting for call back- nurse aware to f/u.
--- NOTE | 2020-09-20 19:01 | NUR ---
NURSE NOTES: Made dr. rivers aware of bloody bowel movements and HGB 7.0- per dr. rivers to transfuse 1U prbc- will carry out orders. Aware Protonix drip was d/c.
--- NOTE | 2020-09-20 19:30 | NUR ---
NURSE NOTES: RECEIVED PATIENT IN BED AWAKE AND ORIENTED X 4,NOT IN DISTRESS.ASSISTED PT TO THE TOILET WITH BLOODY DIARRHEA.HGB 6.9,FOR BLOOD TRANSFUSION TONIGHT ORDERED BY MD.VITAL SIGNS STABLE.SINUS RHYTHM ON THE MONITOR.
[2020-09-20 20:26] LABS: HEMATOCRIT 19.5 % (42.0-52.0); MEAN CORPUSCULAR VOLUME 95 FL (80-99); PLATELET COUNT 111 K/UL (150-450); RED BLOOD COUNT 2.06 M/UL (4.70-6.10); RED CELL DISTRIBUTION WIDTH 19.2 % (11.6-14.8); WHITE BLOOD COUNT 16.5 K/UL (4.8-10.8)
[2020-09-20 20:28] LABS: HEMOGLOBIN 6.9 G/DL (14.2-18.0)
[2020-09-20] MEDS: Pantoprazole Inj IVP SCH (21:45)
[2020-09-20] MEDS: cefTRIAXone 1 GM in D5W 55 ML IVPB SCH (21:46)
[2020-09-21] MEDS: Octreotide Acetate 500 MCG in Sodium Chloride 499 ML IV SCH (01:09)
[2020-09-21 04:00] LABS: HEMATOCRIT 19.3 % (42.0-52.0); HEMOGLOBIN 7.1 G/DL (14.2-18.0); MEAN CORPUSCULAR VOLUME 92 FL (80-99); PLATELET COUNT 70 K/UL (150-450); RED CELL DISTRIBUTION WIDTH 18.3 % (11.6-14.8); WHITE BLOOD COUNT 11.7 K/UL (4.8-10.8)
[2020-09-21 04:09] LABS: AMMONIA 17 umol/L (11-32)
[2020-09-21 04:12] LABS: % IRON SATURATION 125 % (15-50); INR 1.9 (0.9-1.1); IRON 81 ug/dL (50-175); TOTAL IRON BINDING CAPACITY 65 ug/dL (250-450)
[2020-09-21 04:22] VITALS: BP 104/53
[2020-09-21 04:36] LABS: GAMMA GLUTAMYL TRANSPEPTIDASE 86 U/L (5-85)
[2020-09-21 04:38] LABS: ALANINE AMINOTRANSFERASE 95 U/L (12-78); ALBUMIN 1.5 G/DL (3.4-5.0); ALBUMIN/GLOBULIN RATIO 0.3 (1.0-2.7); ALKALINE PHOSPHATASE 121 U/L (46-116); ANION GAP 8 mmol/L (5-15); ASPARTATE AMINO TRANSFERASE 181 U/L (15-37); BILIRUBIN,TOTAL 16.7 MG/DL (0.2-1.0); BLOOD UREA NITROGEN 23 mg/dL (7-18); CALCIUM 8.2 MG/DL (8.5-10.1); CARBON DIOXIDE 20 MMOL/L (21-32); CHLORIDE 108 MMOL/L (98-107); CHOLESTEROL < 50 MG/DL (< 200); CREATININE 1.1 MG/DL (0.55-1.30); HDL CHOLESTEROL 15 MG/DL (40-60); PHOSPHORUS 4.2 MG/DL (2.5-4.9); POTASSIUM 4.6 MMOL/L (3.5-5.1); SODIUM 136 MMOL/L (136-145); TRIGLYCERIDES 84 MG/DL (30-150)
[2020-09-21 04:42] LABS: BILIRUBIN,DIRECT 11.6 MG/DL (0.0-0.3)
[2020-09-21 05:03] LABS: FERRITIN > 2000 NG/ML (8-388)
[2020-09-21] MEDS: Levothyroxine 25mcg tab ORAL SCH (06:17)
--- NOTE | 2020-09-21 06:46 | General Progress Note ---
Subjective ROS Limited/Unobtainable: No Allergies: Coded Allergies: No Known Allergies (Unverified , 09/19/20) Objective Last 24 Hour Vital Signs Date Time Temp Pulse Resp B/P (MAP) Pulse Ox O2 Delivery O2 Flow Rate FiO2 09/21/20 04:23 Room Air 09/21/20 04:22 97.9 93 18 104/53 (70) 99 09/21/20 04:00 95 09/21/20 00:04 Room Air 09/21/20 00:00 94 09/20/20 23:54 98.4 97 18 111/60 (77) 100 09/20/20 20:00 Room Air 09/20/20 20:00 101 09/20/20 20:00 98.2 98 18 108/56 (73) 100 09/20/20 16:00 98.0 85 18 115/58 (77) 100 09/20/20 16:00 Room Air 09/20/20 15:40 90 09/20/20 14:45 97.7 85 13 100/67 100 Room Air 09/20/20 14:30 84 17 106/61 100 Nasal Cannula 3 85 09/20/20 14:25 85 12 102/58 100 Nasal Cannula 3 86 09/20/20 14:21 97.5 86 14 101/46 100 Nasal Cannula 3 89 09/20/20 13:05 98.6 95 18 113/52 (72) 100 09/20/20 12:50 98.0 93 18 107/51 (69) 100 09/20/20 12:00 97.9 98 18 107/49 (68) 100 09/20/20 12:00 Room Air 09/20/20 11:42 93 09/20/20 08:51 Room Air 09/20/20 08:18 97 09/20/20 08:00 98.1 95 18 105/48 (67) 100 09/20/20 07:50 97.9 100 18 105/58 100 Room Air Intake and Output 09/20/20 09/21/20 19:00 07:00 Intake Total 450 ml 855 ml Balance 450 ml 855 ml Intake Oral 0 ml IV Total 450 ml 605 ml Blood Product 250 ml # Voids 4 3 # Bowel Movements 2 6 Laboratory Tests 09/20/20 12:10: White Blood Count 19.6H, Red Blood Count 2.05L, Hemoglobin 7.0L, Hematocrit 20.1L, Mean Corpuscular Volume 98, Mean Corpuscular Hemoglobin 34.1H, Mean Corpuscular Hemoglobin Concent 34.8, Red Cell Distribution Width 18.6H, Platelet Count 100L, Mean Platelet Volume 7.6, Neutrophils (%) (Auto) 83.8H, Lymphocytes (%) (Auto) 8.0L, Monocytes (%) (Auto) 6.5, Eosinophils (%) (Auto) 0.8, Basophils (%) (Auto) 0.9, Sodium Level 131L, Potassium Level 6.3#*H, Chloride Level 103, Carbon Dioxide Level 22, Anion Gap 6, Blood Urea Nitrogen 22H, Creatinine 1.4H, Estimat Glomerular Filtration Rate 57.3, Glucose Level 118H, Calcium Level 7.9L, Phosphorus Level 5.1H, Magnesium Level 1.8, Total Bilirubin 17.1H, Direct Bilirubin 12.6H, Aspartate Amino Transf (AST/SGOT) 176H, Alanine Aminotr ansferase (ALT/SGPT) 87H, Alkaline Phosphatase 139H, Total Protein 6.1L, Albumin 1.4L, Globulin 4.7, Albumin/Globulin Ratio 0.3L 09/20/20 13:30: White Blood Count 19.9H, Red Blood Count 2.03L, Hemoglobin 7.0L, Hematocrit 20.4L, Mean Corpuscular Volume 101H, Mean Corpuscular Hemoglobin 33.7H, Mean Corpuscular Hemoglobin Concent 33.5, Red Cell Distribution Width 18.8H, Platelet Count 88L, Mean Platelet Volume 7.9, Neutrophils (%) (Auto) 82.3H, Lymphocytes (%) (Auto) 8.0L, Monocytes (%) (Auto) 8.2, Eosinophils (%) (Auto) 0.8, Basophils (%) (Auto) 0.8 09/20/20 13:50: Sodium Level 132L, Potassium Level 5.9H, Chloride Level 103, Carbon Dioxide Level 19L, Anion Gap 11, Blood Urea Nitrogen 26H, Creatinine 1.3, Estimat Glomerular Filtration Rate > 60, Glucose Level 118H, Calcium Level 8.5, Phosphorus Level 5.1H, Magnesium Level 1.9, Total Bilirubin 17.8H, Direct Bilirubin 12.4H, Aspartate Amino Transf (AST/SGOT) 180H, Alanine Aminotransferase (ALT/SGPT) 89H, Alkaline Phosphatase 142H, Total Protein 6.6, A lbumin 1.7L, Globulin 4.9, Albumin/Globulin Ratio 0.3L 09/20/20 19:45: White Blood Count 16.5H, Red Blood Count 2.06L, Hemoglobin 6.9*L, Hematocrit 19.5L, Mean Corpuscular Volume 95, Mean Corpuscular Hemoglobin 33.7H, Mean Corpuscular Hemoglobin Concent 35.5, Red Cell Distribution Width 19.2H, Platelet Count 111L, Mean Platelet Volume 8.1, Neutrophils (%) (Auto) , Lymphocytes (%) (Auto) , Monocytes (%) (Auto) , Eosinophils (%) (Auto) , Basophils (%) (Auto) , Potassium Level 4.4, Differential Total Cells Counted 100, Neutrophils % (Manual) 81H, Lymphocytes % (Manual) 11L, Monocytes % (Manual) 2, Eosinophils % (Manual) 2, Basophils % (Manual) 0, Band Neutrophils 4, Platelet Estimate DecreasedL, Platelet Morphology Normal, Hypochromasia 3+, Anisocytosis 1+ 09/21/20 03:15: White Blood Count 11.7H, Red Blood Count 2.10L, Hemoglobin 7.1L, Hematocrit 19 .3L, Mean Corpuscular Volume 92, Mean Corpuscular Hemoglobin 33.8H, Mean Corpuscular Hemoglobin Concent 36.8H, Red Cell Distribution Width 18.3H, Platelet Count 70L, Mean Platelet Volume 7.0, Neutrophils (%) (Auto) , Lymphocytes (%) (Auto) , Monocytes (%) (Auto) , Eosinophils (%) (Auto) , Basophils (%) (Auto) , Neutrophils % (Manual) [Pending], Lymphocytes % (Manual) [Pending], Platelet Estimate [Pending], Platelet Morphology [Pending], Prothrombin Time 19.5H, Prothromb Time International Ratio 1.9H, Activated Partial Thromboplast Time 58H, Sodium Level 136, Potassium Level 4.6, Chloride Level 108H, Carbon Dioxide Level 20L, Anion Gap 8, Blood Urea Nitrogen 23H, Creatinine 1.1, Estimat Glomerular Filtration Rate > 60, Glucose Level 97, Hemoglobin A1c 4.7, Uric Acid 4.6, Calcium Level 8.2L, Phosphorus Level 4.2, Magnesium Level 1.8, Iron Level 81, Total Iron Binding Capacity 65L, Percent Iron Saturation 125H, Unsaturated Iron Binding -16L, Ferritin > 2000H, Total Bilirubin 16.7H, Direct Bilirubin 11.6H, Gamma Glutamyl Transpeptidase 86H, Aspartate Amino Transf (AST/SGOT) 181H, Alanine Aminotransferase (ALT/SGPT) 95H, Alkaline Phosphatase 121H, Ammonia 17, C-Reactive Protein, Quantitative 4.0H, Pro-B-Type Natriuretic Peptide 62, Total Protein 6.0L, Albumin 1.5L, Globulin 4.5, Albumin/Globulin Ratio 0.3L, Triglycerides Level 84, Cholesterol Level < 50, LDL Cholesterol 32, HDL Cholesterol 15L, Cholesterol/HDL Ratio 3.3, Vitamin B12 Level > 2000H, Folate 19.8, Thyroid Stimulating Hormone (TSH) 0.427 Height (Feet): 5 Height (Inches): 9.00 Weight (Pounds): 155 General Appearance: no apparent distress EENT: normal ENT inspection Neck: supple Cardiovascular: normal rate Respiratory/Chest: decreased breath sounds Abdomen: normal bowel sounds, non tender, soft Extremities: non-tender Assessment/Plan Problem List: (1) GI bleed ICD Codes: K92.2 - Gastrointestinal hemorrhage, unspecified SNOMED: 30892701 (2) Hepatitis C ICD Codes: B19.20 - Unspecified viral hepatitis C without hepatic coma SNOMED: 15720146 (3) Alcoholic liver disease ICD Codes: K70.9 - Alcoholic liver disease, unspecified SNOMED: 01456643 (4) Anemia ICD Codes: D64.9 - Anemia, unspecified SNOMED: 445686387 Assessment/Plan: s/p EGD stable H&H start clears ewpwat labs will fu Arpit Reyez MD Sep 21, 2020 06:46
--- NOTE | 2020-09-21 07:33 | NUR ---
NURSE HAND-OFF REPORT: Important Events on Shift: HAS A BLOODY DIARRHEA,HGB 7.0,REPEATED 6.9.,1 UNIT PRBC GIVEN. Patient Status: STABLE VITAL SIGNS Diet: NPO Pending Orders: KEEP HGB 7.0 Pending Results/Labs:CBC,CMP,MAG PHOS,BILIRUBIN Pending MD notification:NONE Latest Vital Signs: Temperature 97.9 , Pulse 93 , B/P 104 /53 , Respiratory Rate 18 , O2 SAT 99 , Room Air, O2 Flow Rate 3 . Vital Sign Comment: STABLE EKG Rhythm: Sinus Rhythm Rhythm change?: Y MD Notified?: N - MD Response: Latest Julian Fall Score: 45 Fall Risk: High Risk Safety Measures: Call light Within Reach, Bed Alarm Zone 3, Side Rails Side Rails x3, Bed position Low and Locked. Fall Precautions: Yellow Socks Yellow Gown Door Sign Patient Fall Education Report given to CAROLINA Malin.
--- NOTE | 2020-09-21 07:35 | NUR ---
NURSE NOTES: Received patient report from CAROLINA Boone. Pt is asleep in bed at this time. Breathing is even and unlabored with no signs of respiratory distress on RA. No pain or discomfort noted at this time. Pt with L AC 20G and R AC 20G Saline lock. Bed in lowest position, locked with siderails x2 up. Call light within reach.
[2020-09-21 08:00] VITALS: BP 114/65
[2020-09-21] MEDS: Pantoprazole Inj IVP SCH ×2 (08:57→20:17)
[2020-09-21] MEDS: Lactulose 20gm/30ml UDC ORAL SCH ×2 (08:57→17:21)
[2020-09-21] MEDS ORDERED: Ciprofloxacin 500mg tab ORAL SCH (09:00)
--- NOTE | 2020-09-21 10:35 | Nephrology Progress Note ---
Assessment/Plan Problem List: (1) Hyponatremia (2) Hepatitis C (3) Alcoholic liver disease (4) Liver cirrhosis, alcoholic (5) GI bleed (6) Sepsis (7) GLENN (acute kidney injury) Assessment Acute renal failure Hyponatremia and electrolyte imbalances GI bleed, severe anemia Sepsis, leukocytosis Liver cirrhosis, alcoholic, hepatitis C Plan September 21: Remains stable from renal standpoint of view. Hemoglobin low September 20: Labs reviewed. Electrolytes and creatinine within normal range. Stable from renal standpoint to view. Continue per consultants. September 19: Hydrate Monitor electrolytes IV Protonix Monitor hemoglobin and hematocrit Anemia work-up Per GI Per consultants Per orders Subjective ROS Limited/Unobtainable: No Constitutional: Reports: malaise Objective Objective Last 24 Hour Vital Signs Date Time Temp Pulse Resp B/P (MAP) Pulse Ox O2 Delivery O2 Flow Rate FiO2 09/21/20 08:00 95 09/21/20 08:00 97.3 103 19 114/65 (81) 100 09/21/20 08:00 Room Air 09/21/20 04:23 Room Air 09/21/20 04:22 97.9 93 18 104/53 (70) 99 09/21/20 04:00 95 09/21/20 00:04 Room Air 09/21/20 00:00 94 09/20/20 23:54 98.4 97 18 111/60 (77) 100 09/20/20 20:00 Room Air 09/20/20 20:00 101 09/20/20 20:00 98.2 98 18 108/56 (73) 100 09/20/20 16:00 98.0 85 18 115/58 (77) 100 09/20/20 16:00 Room Air 09/20/20 15:40 90 09/20/20 14:45 97.7 85 13 100/67 100 Room Air 09/20/20 14:30 84 17 106/61 100 Nasal Cannula 3 85 09/20/20 14:25 85 12 102/58 100 Nasal Cannula 3 86 09/20/20 14:21 97.5 86 14 101/46 100 Nasal Cannula 3 89 09/20/20 13:05 98.6 95 18 113/52 (72) 100 09/20/20 12:50 98.0 93 18 107/51 (69) 100 09/20/20 12:00 97.9 98 18 107/49 (68) 100 09/20/20 12:00 Room Air 09/20/20 11:42 93 Intake and Output 09/20/20 09/21/20 19:00 07:00 Intake Total 450 ml 855 ml Balance 450 ml 855 ml Intake Oral 0 ml IV Total 450 ml 605 ml Blood Product 250 ml # Voids 4 3 # Bowel Movements 2 6 Current Medications Medications (Trade) Dose Ordered Sig/Santino Route PRN Reason Start Time Stop Time Status Last Admin Dose Admin Ceftriaxone Sodium 1 gm/ Dextrose 55 ml @ 110 mls/hr Q24H IVPB 09/20/20 20:00 09/27/20 19:59 09/20/20 21:46 Folic Acid (Folate) 1 mg DAILY ORAL 09/21/20 09:00 10/21/20 08:59 09/21/20 08:57 Lactulose (Cephulac) 30 gm BID ORAL 09/20/20 11:30 10/20/20 11:29 09/21/20 08:57 Levothyroxine Sodium (Synthroid) 25 mcg DAILY@0630 ORAL 09/21/20 06:30 10/21/20 06:29 09/21/20 06:17 Ondansetron HCl (Zofran) 4 mg Q4HR PRN IVP Nausea & Vomiting 09/20/20 10:15 10/20/20 10:14 09/20/20 11:25 Pantoprazole (Protonix) 40 mg EVERY 12 HOURS IVP 09/20/20 21:00 10/20/20 20:59 09/21/20 08:57 Laboratory Tests 09/20/20 12:10: White Blood Count 19.6H, Red Blood Count 2.05L, Hemoglobin 7.0L, Hematocrit 20.1L, Mean Corpuscular Volume 98, Mean Corpuscular Hemoglobin 34.1H, Mean Corpuscular Hemoglobin Concent 34.8, Red Cell Distribution Width 18.6H, Platelet Count 100L, Mean Platelet Volume 7.6, Neutrophils (%) (Auto) 83.8H, Lymphocytes (%) (Auto) 8.0L, Monocytes (%) (Auto) 6.5, Eosinophils (%) (Auto) 0.8, Basophils (%) (Auto) 0.9, Sodium Level 131L, Potassium Level 6.3#*H, Chloride Level 103, Carbon Dioxide Level 22, Anion Gap 6, Blood Urea Nitrogen 22H, Creatinine 1.4H, Estimat Glomerular Filtration Rate 57.3, Glucose Level 118H, Calcium Level 7.9L, Phosphorus Level 5.1H, Magnesium Level 1.8, Total Bilirubin 17.1H, Direct Bilirubin 12.6H, Aspartate Amino Transf (AST/SGOT) 176H, Alanine Aminotransferase (ALT/SGPT) 87H, Alkaline Phosphatase 139H, Total Protein 6.1L, Albumin 1.4L, Globulin 4.7, Albumin/Globulin Ratio 0.3L 09/20/20 13:30: White Blood Count 19.9H, Red Blood Count 2.03L, Hemoglobin 7.0L, Hematocrit 20.4L, Mean Corpuscular Volume 101H, Mean Corpuscular Hemoglobin 33.7H, Mean Corpuscular Hemoglobin Concent 33.5, Red Cell Distribution Width 18.8H, Platelet Count 88L, Mean Platelet Volume 7.9, Neutrophils (%) (Auto) 82.3H, Lymphocytes (%) (Auto) 8.0L, Monocytes (%) (Auto) 8.2, Eosinophils (%) (Auto) 0.8, Basophils (%) (Auto) 0.8 09/20/20 13:50: Sodium Level 132L, Potassium Level 5.9H, Chloride Level 103, Carbon Dioxide Level 19L, Anion Gap 11, Blood Urea Nitrogen 26H, Creatinine 1.3, Estimat Glomerular Filtration Rate > 60, Glucose Level 118H, Calcium Level 8.5, Phosphorus Level 5.1H, Magnesium Level 1.9, Total Bilirubin 17.8H, Direct Bi lirubin 12.4H, Aspartate Amino Transf (AST/SGOT) 180H, Alanine Aminotransferase (ALT/SGPT) 89H, Alkaline Phosphatase 142H, Total Protein 6.6, Albumin 1.7L, Globulin 4.9, Albumin/Globulin Ratio 0.3L 09/20/20 19:45: White Blood Count 16.5H, Red Blood Count 2.06L, Hemoglobin 6.9*L, Hematocrit 19.5L, Mean Corpuscular Volume 95, Mean Corpuscular Hemoglobin 33.7H, Mean Corpuscular Hemoglobin Concent 35.5, Red Cell Distribution Width 19.2H, Platelet Count 111L, Mean Platelet Volume 8.1, Neutrophils (%) (Auto) , Lymphocytes (%) ( Auto) , Monocytes (%) (Auto) , Eosinophils (%) (Auto) , Basophils (%) (Auto) , Potassium Level 4.4, Differential Total Cells Counted 100, Neutrophils % (Manual) 81H, Lymphocytes % (Manual) 11L, Monocytes % (Manual) 2, Eosinophils % (Manual) 2, Basophils % (Manual) 0, Band Neutrophils 4, Platelet Estimate DecreasedL, Platelet Morphology Normal, Hypochromasia 3+, Anisocytosis 1+ 09/21/20 03:15: White Blood Count 11.7H, Red Blood Count 2.10L, Hemoglobin 7.1L, Hematocrit 19.3L, Mean Corpuscular Volume 92, Mean Corpuscular Hemoglobin 33.8H, Mean Corpuscular Hemoglobin Concent 36.8H, Red Cell Distribution Width 18.3H, Platelet Count 70L, Mean Platelet Volume 7.0, Neutrophils (%) (Auto) , Lymphocytes (%) (Auto) , Monocytes (%) (Auto) , Eosinophils (%) (Auto) , Basophils (%) (Auto) , Differential Total Cells Counted 100, Neutrophils % (Manual) 79H, Lymphocytes % (Manual) 11L, Monocytes % (Manual) 8, Eosinophils % (Manual) 1, Basophils % (Manual) 1, Band Neutrophils 0, Platelet Estimate Dec reasedL, Platelet Morphology Normal, Hypochromasia 1+, Anisocytosis 1+, Prothrombin Time 19.5H, Prothromb Time International Ratio 1.9H, Activated Partial Thromboplast Time 58H, Sodium Level 136, Potassium Level 4.6, Chloride Level 108H, Carbon Dioxide Level 20L, Anion Gap 8, Blood Urea Nitrogen 23H, Creatinine 1.1, Estimat Glomerular Filtration Rate > 60, Glucose Level 97, Hemoglobin A1c 4.7, Uric Acid 4.6, Calcium Level 8.2L, Phosphorus Level 4.2, Magnesium Level 1.8, Iron Level 81, Total Iron Binding Capacity 65L, Percent Iron Saturation 125H, Unsaturated Iron Binding -16L, Ferritin > 2000H, Total Bilirubin 16.7H, Direct Bilirubin 11.6H, Gamma Glutamyl Transpeptidase 86H, Aspartate Amino Transf (AST/SGOT) 181H, Alanine Aminotransferase (ALT/SGPT) 95H, Alkaline Phosphatase 121H, Ammonia 17, C-Reactive Protein, Quantitative 4.0H, Pro-B-Type Natriuretic Peptide 62, Total Protein 6.0L, Albumin 1.5L, Globulin 4.5, Albumin/Globulin Ratio 0.3L, Triglycerides Level 84, Cholesterol Level < 50, LDL Cholesterol 32, HDL Cholesterol 15L, Cholesterol/HDL Ratio 3.3, Vitamin B12 Level > 2000H, Folate 19.8, Thyroid Stimulating Hormone (TSH) 0.427 Height (Feet): 5 Height (Inches): 9.00 Weight (Pounds): 155 General Appearance: no apparent distress Cardiovascular: tachycardia Respiratory/Chest: decreased breath sounds Abdomen: distended Santo Pruitt MD Sep 21, 2020 10:35
--- NOTE | 2020-09-21 11:45 | NUR ---
CASE MANAGEMENT:REVIEW SI;GI BLEED. HEP C. ANEMIA. LIVER CIRRHOSIS. SEPSIS. 98.4 103 104/53 99% ON RA WBC 11.7 RBC 2.10 H/H 7.1/19.3 PLT 70 BUN 23 FERRITIN >2000 T-BILI 16.7 D-BILI 11.6 GGT 86 AST 181 ALP 95 ALP 121 CRP 4.0 ALB 1.5 VIT B12 >2000 IS;FOLATE PO QD PROTONIX IV Q12 ROCEPHIN IV Q24 OCTREOTIDE IV LACTULOSE PO BID TERESA STATUS DCP;PATIENT IS FROM HOME PLAN; START CLEAR DIET
[2020-09-21] MEDS ORDERED: NS 275ml ONE (11:48)
[2020-09-21] MEDS ORDERED: Tubing IV Secondary IV ONE (11:48)
[2020-09-21] MEDS ORDERED: Tubing IV Blood Pump IV ONE (11:48)
[2020-09-21 12:00] VITALS: BP 109/70
--- NOTE | 2020-09-21 13:02 | Cardiology Report ---
APPROVED REPORT EKG Measurement Heart [id number] <Conclusion> Sinus tachycardia Minimal voltage criteria for LVH, may be normal variant Borderline ECG
[2020-09-21 13:19] LABS: HEMATOCRIT 21.6 % (42.0-52.0); HEMOGLOBIN 7.4 G/DL (14.2-18.0); MEAN CORPUSCULAR VOLUME 96 FL (80-99); PLATELET COUNT 74 K/UL (150-450); RED BLOOD COUNT 2.25 M/UL (4.70-6.10); RED CELL DISTRIBUTION WIDTH 18.5 % (11.6-14.8); WHITE BLOOD COUNT 10.5 K/UL (4.8-10.8)
[2020-09-21 13:36] LABS: ALANINE AMINOTRANSFERASE 105 U/L (12-78); ALBUMIN 1.7 G/DL (3.4-5.0); ALBUMIN/GLOBULIN RATIO 0.4 (1.0-2.7); ALKALINE PHOSPHATASE 131 U/L (46-116); ANION GAP 9 mmol/L (5-15); ASPARTATE AMINO TRANSFERASE 197 U/L (15-37); BILIRUBIN,TOTAL 18.2 MG/DL (0.2-1.0); BLOOD UREA NITROGEN 21 mg/dL (7-18); CALCIUM 8.3 MG/DL (8.5-10.1); CARBON DIOXIDE 20 MMOL/L (21-32); CHLORIDE 106 MMOL/L (98-107); CREATININE 1.1 MG/DL (0.55-1.30); PHOSPHORUS 3.7 MG/DL (2.5-4.9); POTASSIUM 3.9 MMOL/L (3.5-5.1); SODIUM 135 MMOL/L (136-145)
[2020-09-21 13:40] LABS: BILIRUBIN,DIRECT 12.9 MG/DL (0.0-0.3)
--- NOTE | 2020-09-21 15:20 | NUR ---
NURSE NOTES: Patient is seen awake and alert x 4. No confusion or altered mental status noted. on room air, no distress/SOB noted. Denies pain at this time. Will continue to monitor.
[2020-09-21 16:00] VITALS: BP 108/68
--- NOTE | 2020-09-21 17:18 | Consultation ---
History of Present Illness General Date patient seen: Sep 21, 2020 Chief Complaint: Diarrhea Present Illness HPI 35 y/o M with hx of ETOH and Hep C cirrhosis (on transplant list) presented to ED on 09/19/20 with several episodes of bloody diarrhea, nausea and bloody emesis. Denied fever/chills, abd pin, tremors, CP, SOB. Allergies: Coded Allergies: No Known Allergies (Unverified , 09/19/20) Medication History Scheduled Ciprofloxacin Hcl* (Ciprofloxacin Hcl*), 500 MG ORAL DAILY, (Reported) Folic Acid* (Folic Acid*), 1 MG ORAL DAILY, (Reported) Furosemide* (Lasix*), 40 MG ORAL DAILY, (Reported) Levothyroxine Sodium* (Synthroid*), 25 MCG ORAL DAILY, (Reported) Pantoprazole* (Protonix*), 40 MG ORAL DAILY, (Reported) Sodium Bicarbonate* (Nahco3*), 600 MG PO BID, (Reported) Spironolactone* (Spironolactone*), 50 MG ORAL DAILY, (Reported) Miscellaneous Medications Lactulose (Lactulose*), 30 ML ORAL, (Reported) Patient History Healthcare decision maker Resuscitation status Advanced Directive on File Patient History Narrative Pmhx: as above Shx: reviewed Fhmx: non contributory Physical Exam Physical Exam Narrative General Appearance: no apparent distress EENT: normal ENT inspection Neck: supple Cardiovascular: normal rate Respiratory/Chest: decreased breath sounds Abdomen: normal bowel sounds, non tender, soft Extremities: non-tender Last 24 Hour Vital Signs Date Time Temp Pulse Resp B/P (MAP) Pulse Ox O2 Delivery O2 Flow Rate FiO2 09/21/20 16:00 97.0 97 19 108/68 (81) 100 09/21/20 16:00 Room Air 09/21/20 12:00 93 09/21/20 12:00 Room Air 09/21/20 12:00 97.2 94 18 109/70 (83) 100 09/21/20 08:00 95 09/21/20 08:00 97.3 103 19 114/65 (81) 100 09/21/20 08:00 Room Air 09/21/20 04:23 Room Air 09/21/20 04:22 97.9 93 18 104/53 (70) 99 09/21/20 04:00 95 09/21/20 00:04 Room Air 09/21/20 00:00 94 09/20/20 23:54 98.4 97 18 111/60 (77) 100 09/20/20 20:00 Room Air 09/20/20 20:00 101 09/20/20 20:00 98.2 98 18 108/56 (73) 100 Intake and Output 09/20/20 09/21/20 19:00 07:00 Intake Total 450 ml 855 ml Balance 450 ml 855 ml Intake Oral 0 ml IV Total 450 ml 605 ml Blood Product 250 ml # Voids 4 3 # Bowel Movements 2 6 Laboratory Tests Test 09/20/20 19:45 09/21/20 03:15 09/21/20 12:10 White Blood Count 16.5 K/UL (4.8-10.8) H 11.7 K/UL (4.8-10.8) H 10.5 K/UL (4.8-10.8) Red Blood Count 2.06 M/UL (4.70-6.10) L 2.10 M/UL (4.70-6.10) L 2.25 M/UL (4.70-6.10) L Hemoglobin 6.9 G/DL (14.2-18.0) *L 7.1 G/DL (14.2-18.0) L 7.4 G/DL (14.2-18.0) L Hematocrit 19.5 % (42.0-52.0) L 19.3 % (42.0-52.0) L 21.6 % (42.0-52.0) L Mean Corpuscular Volume 95 FL (80-99) 92 FL (80-99) 96 FL (80-99) Mean Corpuscular Hemoglobin 33.7 PG (27.0-31.0) H 33.8 PG (27.0-31.0) H 33.1 PG (27.0-31.0) H Mean Corpuscular Hemoglobin Concent 35.5 G/DL (32.0-36.0) 36.8 G/DL (32.0-36.0) H 34.4 G/DL (32.0-36.0) Red Cell Distribution Width 19.2 % (11.6-14.8) H 18.3 % (11.6-14.8) H 18.5 % (11.6-14.8) H Platelet Count 111 K/UL (150-450) L 70 K/UL (150-450) L 74 K/UL (150-450) L Mean Platelet Volume 8.1 FL (6.5-10.1) 7.0 FL (6.5-10.1) 6.4 FL (6.5-10.1) L Neutrophils (%) (Auto) % (45.0-75.0) % (45.0-75.0) % (45.0-75.0) Lymphocytes (%) (Auto) % (20.0-45.0) % (20.0-45.0) % (20.0-45.0) Monocytes (%) (Auto) % (1.0-10.0) % (1.0-10.0) % (1.0-10.0) Eosinophils (%) (Auto) % (0.0-3.0) % (0.0-3.0) % (0.0-3.0) Basophils (%) (Auto) % (0.0-2.0) % (0.0-2.0) % (0.0-2.0) Differential Total Cells Counted 100 100 100 Neutrophils % (Manual) 81 % (45-75) H 79 % (45-75) H 88 % (45-75) H Lymphocytes % (Manual) 11 % (20-45) L 11 % (20-45) L 6 % (20-45) L Monocytes % (Manual) 2 % (1-10) 8 % (1-10) 5 % (1-10) Eosinophils % (Manual) 2 % (0-3) 1 % (0-3) 1 % (0-3) Basophils % (Manual) 0 % (0-2) 1 % (0-2) 0 % (0-2) Band Neutrophils 4 % (0-8) 0 % (0-8) 0 % (0-8) Platelet Estimate Decreased L Decreased L Decreased L Platelet Morphology Normal Normal Normal Hypochromasia 3+ 1+ 1+ Anisocytosis 1+ 1+ 1+ Potassium Level 4.4 MMOL/L (3.5-5.1) 4.6 MMOL/L (3.5-5.1) 3.9 MMOL/L (3.5-5.1) Prothrombin Time 19.5 SEC (9.30-11.50) H Prothromb Time International Ratio 1.9 (0.9-1.1) H Activated Partial Thromboplast Time 58 SEC (23-33) H Sodium Level 136 MMOL/L (136-145) 135 MMOL/L (136-145) L Chloride Level 108 MMOL/L (98-107) H 106 MMOL/L (98-107) Carbon Dioxide Level 20 MMOL/L (21-32) L 20 MMOL/L (21-32) L Anion Gap 8 mmol/L (5-15) 9 mmol/L (5-15) Blood Urea Nitrogen 23 mg/dL (7-18) H 21 mg/dL (7-18) H Creatinine 1.1 MG/DL (0.55-1.30) 1.1 MG/DL (0.55-1.30) Estimat Glomerular Filtration Rate > 60 mL/min (>60) > 60 mL/min (>60) Glucose Level 97 MG/DL (74-106) 161 MG/DL (74-106) H Hemoglobin A1c 4.7 % (4.3-6.0) Uric Acid 4.6 MG/DL (2.6-7.2) Calcium Level 8.2 MG/DL (8.5-10.1) L 8.3 MG/DL (8.5-10.1) L Phosphorus Level 4.2 MG/DL (2.5-4.9) 3.7 MG/DL (2.5-4.9) Magnesium Level 1.8 MG/DL (1.8-2.4) 2.0 MG/DL (1.8-2.4) Iron Level 81 ug/dL (50-175) Total Iron Binding Capacity 65 ug/dL (250-450) L Percent Iron Saturation 125 % (15-50) H Unsaturated Iron Binding -16 ug/dL (112-346) L Ferritin > 2000 NG/ML (8-388) H Total Bilirubin 16.7 MG/DL (0.2-1.0) H 18.2 MG/DL (0.2-1.0) H Direct Bilirubin 11.6 MG/DL (0.0-0.3) H 12.9 MG/DL (0.0-0.3) H Gamma Glutamyl Transpeptidase 86 U/L (5-85) H Aspartate Amino Transf (AST/SGOT) 181 U/L (15-37) H 197 U/L (15-37) H Alanine Aminotransferase (ALT/SGPT) 95 U/L (12-78) H 105 U/L (12-78) H Alkaline Phosphatase 121 U/L (46-116) H 131 U/L (46-116) H Ammonia 17 umol/L (11-32) C-Reactive Protein, Quantitative 4.0 mg/dL (0.00-0.90) H Pro-B-Type Natriuretic Peptide 62 pg/mL (0-125) Total Protein 6.0 G/DL (6.4-8.2) L 6.5 G/DL (6.4-8.2) Albumin 1.5 G/DL (3.4-5.0) L 1.7 G/DL (3.4-5.0) L Globulin 4.5 g/dL 4.8 g/dL Albumin/Globulin Ratio 0.3 (1.0-2.7) L 0.4 (1.0-2.7) L Triglycerides Level 84 MG/DL (30-150) Cholesterol Level < 50 MG/DL (< 200) LDL Cholesterol 32 mg/dL (<100) HDL Cholesterol 15 MG/DL (40-60) L Cholesterol/HDL Ratio 3.3 (3.3-4.4) Vitamin B12 Level > 2000 PG/ML (193-986) H Folate 19.8 NG/ML (8.6-58.9) Thyroid Stimulating Hormone (TSH) 0.427 uiU/mL (0.358-3.740) Height (Feet): 5 Height (Inches): 9.00 Weight (Pounds): 155 Medications Current Medications Medications (Trade) Dose Ordered Sig/Santino Route PRN Reason Start Time Stop Time Status Last Admin Dose Admin Ceftriaxone Sodium 1 gm/ Dextrose 55 ml @ 110 mls/hr Q24H IVPB 09/20/20 20:00 09/27/20 19:59 09/20/20 21:46 Folic Acid (Folate) 1 mg DAILY ORAL 09/21/20 09:00 10/21/20 08:59 09/21/20 08:57 Lactulose (Cephulac) 30 gm BID ORAL 09/20/20 11:30 10/20/20 11:29 09/21/20 08:57 Levothyroxine Sodium (Synthroid) 25 mcg DAILY@0630 ORAL 09/21/20 06:30 10/21/20 06:29 09/21/20 06:17 Ondansetron HCl (Zofran) 4 mg Q4HR PRN IVP Nausea & Vomiting 09/20/20 10:15 10/20/20 10:14 09/20/20 11:25 Pantoprazole (Protonix) 40 mg EVERY 12 HOURS IVP 09/20/20 21:00 10/20/20 20:59 09/21/20 08:57 Assessment/Plan Assessment/Plan: Abx: Ceftriaxone 09/19- Ciprofloxacin x1 09/21 Flagyl x1 09/19 Assessment: COVID19 neg x1 (09/20 rapid COVID PCR neg) -09/19 CXR: no acute disease Afebrile Leukocytosis, SP- likely reactive Pyuria- NO UTI symptoms -u/a wbc 10-15, nit +, leuk +1; ucx NTD UGIB 2ry to ulcer -09/20 EGD: 1. Status post successful Hemoclip-assistance hemostasis of ulcer at the GE junction. Portal hypertensive gastropathy. No obvious esophageal or gastric varices. ETOH and Hep C cirrhosis (on transplant list) Plan: -Dc empiric Ceftriaxone #3 and monitor off abx -f/u cx -Monitor CBC/CMP, temperatures -GI f/u Thank you for consulting [facility]. Will continue to follow along with you. Discussed with Jazz Bolton M.D. Sep 21, 2020 17:18
--- NOTE | 2020-09-21 17:23 | History & Physical ---
History and Physical History & Physicial Dictated for Int Med-Dr Pena no. [id number] Aidan Zamora MD Sep 21, 2020 17:23
--- NOTE | 2020-09-21 18:45 | History and Physical Report ---
DATE OF ADMISSION: 09/19/2020 CHIEF COMPLAINT: This is a 35-year-old male who presents with chief complaint of bloody diarrhea. HISTORY OF PRESENT ILLNESS: The patient has a history of alcohol dependence. The patient has been sober since June 2020. The patient has a history of alcoholic liver cirrhosis. The patient presented to [facility] complaining of several episodes of bloody diarrhea. He still has dinesh bright red blood in it. The patient denies any nausea or hematemesis. The patient presented to [facility]. The patient was admitted with gastrointestinal hemorrhage. REVIEW OF SYSTEMS: CONSTITUTIONAL: The patient denies weight loss or weight gain. The patient denies fevers or chills. HEENT: The patient denies ear or throat pain. The patient denies headache. CARDIOVASCULAR: The patient denies palpitations or chest pain. CHEST: The patient denies wheeze or shortness of breath. ABDOMINAL: The patient denies nausea, vomiting, or constipation. The patient complains of bloody diarrhea as above. NEUROMUSCULAR: The patient denies seizures or generalized weakness. GENITOURINARY: The patient denies dysuria or increased frequency of urination. PAST MEDICAL HISTORY: Significant for: 1. Alcoholic cirrhosis of liver. 2. Hepatitis C. 3. History of alcohol dependence, status post remission in June 2020. PAST SURGICAL HISTORY: The patient denies. CURRENT MEDICATIONS: 1. Levoxyl 25 mcg one tablet p.o. daily. 2. Protonix 40 mg p.o. daily. 3. Spironolactone 100 mg p.o. daily. ALLERGIES: No known drug allergies. SOCIAL HISTORY: The patient is single. . The patient denies alcohol use having quit in June 2020. PHYSICAL EXAMINATION: VITAL SIGNS: Temperature 98.6, respirations 20, pulse 90, blood pressure 101/56. GENERAL: The patient is thin-appearing male, in no apparent distress. HEENT: Eyes, pupils are equal and responsive to light and accommodation. Extraocular movements are intact. NECK: Supple without lymphadenopathy. CHEST: Lungs are clear to auscultation bilaterally without wheezes or rales. CARDIOVASCULAR: Regular rate. S1 and S2 are normal without murmurs, rubs, or gallops. ABDOMEN: Soft, nontender, nondistended. Positive bowel sounds. No evidence of hepatosplenomegaly. Currently, no rebound or guarding noted. EXTREMITIES: Negative for clubbing, cyanosis, or edema. RECTAL/GENITAL: Not performed. NEUROLOGIC: Cranial nerves II through XII are grossly intact without focal deficits. Motor strength is 5/5 bilaterally. Deep tendon reflexes are 2+ plantar. LABORATORY STUDIES: WBC 19.6, hemoglobin 7.0, hematocrit 20.1, platelets 100,000. Sodium 128, potassium 4.1, chloride 95, CO2 20, BUN 20, creatinine 1.4, glucose 123, AST elevated 190, ALT elevated 102, alkaline phosphatase elevated 179. ASSESSMENT: This is a 35-year-old male: 1. Gastrointestinal hemorrhage. 2. Severe anemia. 3. Alcohol liver cirrhosis. 4. Hepatitis C. 5. Alcohol dependence, in remission. 6. Hypothyroidism. TREATMENT: 1. Gastrointestinal hemorrhage. A Gastroenterology consultation obtained with Dr. Arpit Reyez. We will follow recommendations of Gastroenterology. The patient may require endoscopy. Follow recommendations of Gastroenterology. 2. Severe anemia. The patient has been typed and crossed for 2 units of packed RBCs. Transfuse when available. Blood loss is secondary to gastrointestinal hemorrhage as above. 3. Alcohol liver cirrhosis. 4. Hepatitis C. 5. Alcohol dependence, in remission. 6. Hypothyroidism. Continue Levoxyl as above. Aidan Zamora M.D. DR: Angelito JOB#: [id number] CC:
--- NOTE | 2020-09-21 19:25 | NUR ---
NURSE NOTES: Received report from CAROLINA Malin. Patient alert and oriented x 4, awake in bed, afebrile and no respiratory distress noted. Sr on 5 lead manager monitoring.With left AC 20G and right AC 20g IV lines intact, patent and asymptomatic. Pt is continent bowel and bladder. Needs were attended. Bed rails are up and wheels are locked. Call light within reach. Continue to monitor the patient
--- NOTE | 2020-09-21 19:41 | NUR ---
NURSE HAND-OFF REPORT: Important Events on Shift:N/A Patient Status: Stable Diet: Clear liquid Pending Orders: N/A Pending Results/Labs:N/A Pending MD notification:N/A Latest Vital Signs: Temperature 97.0 , Pulse 94 , B/P 108 /68 , Respiratory Rate 19 , O2 SAT 100 , Room Air, O2 Flow Rate 3 . Vital Sign Comment: stable EKG Rhythm: Sinus Rhythm Rhythm change?: N MD Notified?: N - MD Response: Latest Julian Fall Score: 45 Fall Risk: High Risk Safety Measures: Call light Within Reach, Bed Alarm Zone 3, Side Rails Side Rails x3, Bed position Low and Locked. Fall Precautions: Yellow Socks Yellow Gown Door Sign Patient Fall Education Report given to SURJIT/RN.
[2020-09-21 20:00] VITALS: BP 107/61
[2020-09-21] MEDS: HYDROmorphone 2mg tab ORAL PRN (20:15)
[2020-09-21] MEDS: cefTRIAXone 1 GM in D5W 55 ML IVPB SCH (20:18)
[2020-09-22] VITALS: BP 122/69
[2020-09-22] MEDS: HYDROmorphone 2mg tab ORAL PRN (00:30)
--- NOTE | 2020-09-22 00:45 | NUR ---
NURSE NOTES: Pt awake in bed, playing on his cellphone. No discomfort or pain discussed with RN. Pt verbalized that he will call if he needs something. Needs were attended before leaving. Call ligth within reach. Continue to monitor the patient.
[2020-09-22 04:00] VITALS: BP 108/74
[2020-09-22] MEDS: Levothyroxine 25mcg tab ORAL SCH (05:40)
[2020-09-22 05:53] LABS: HEMATOCRIT 21.8 % (42.0-52.0); HEMOGLOBIN 7.9 G/DL (14.2-18.0); MEAN CORPUSCULAR VOLUME 94 FL (80-99); PLATELET COUNT 90 K/UL (150-450); RED BLOOD COUNT 2.32 M/UL (4.70-6.10); RED CELL DISTRIBUTION WIDTH 18.3 % (11.6-14.8); WHITE BLOOD COUNT 13.3 K/UL (4.8-10.8)
[2020-09-22 06:41] LABS: AMMONIA 12 umol/L (11-32)
[2020-09-22 06:44] LABS: ALANINE AMINOTRANSFERASE 115 U/L (12-78); ALBUMIN 1.8 G/DL (3.4-5.0); ALBUMIN/GLOBULIN RATIO 0.3 (1.0-2.7); ALKALINE PHOSPHATASE 145 U/L (46-116); ANION GAP 9 mmol/L (5-15); ASPARTATE AMINO TRANSFERASE 209 U/L (15-37); BILIRUBIN,TOTAL 19.8 MG/DL (0.2-1.0); BLOOD UREA NITROGEN 18 mg/dL (7-18); CALCIUM 8.7 MG/DL (8.5-10.1); CARBON DIOXIDE 23 MMOL/L (21-32); CHLORIDE 103 MMOL/L (98-107); CREATININE 1.1 MG/DL (0.55-1.30); POTASSIUM 3.5 MMOL/L (3.5-5.1); SODIUM 134 MMOL/L (136-145)
[2020-09-22 06:48] LABS: INR 1.8 (0.9-1.1)
[2020-09-22 06:55] LABS: BILIRUBIN,DIRECT 13.7 MG/DL (0.0-0.3)
--- NOTE | 2020-09-22 07:07 | NUR ---
NURSE HAND-OFF REPORT: Important Events on Shift: blood in stool x 2 Patient Status: stable Diet: clear liquid Pending Orders: n Pending Results/Labs:n Pending MD notification:n Latest Vital Signs: Temperature 97.2 , Pulse 110 , B/P 108 /74 , Respiratory Rate 18 , O2 SAT 100 , Room Air, O2 Flow Rate 3 . Vital Sign Comment: n EKG Rhythm: Sinus Rhythm Rhythm change?: N MD Notified?: N - MD Response: Latest Julian Fall Score: 45 Fall Risk: High Risk Safety Measures: Call light Within Reach, Bed Alarm Zone 3, Side Rails Side Rails x3, Bed position Low and Locked. Fall Precautions: Yellow Socks Yellow Gown Door Sign Patient Fall Education Report given to CAROLINA Malin. Endorsed to ff up with DR Reyez regarding blood in stool
--- NOTE | 2020-09-22 07:11 | NUR ---
NURSE NOTES: Received report from JM/RN, Observed patient awake and alert, eating breakfast in bed, AAO x4, able to make needs known, Denies pain at this time. IV site patent and intact. Bed in low position and locked, side rails x3, Call light and bedside table within reach, Encouraged to use call light when needed. Will continue plan of care.
[2020-09-22 08:00] VITALS: BP 121/72
--- NOTE | 2020-09-22 08:32 | General Progress Note ---
Subjective ROS Limited/Unobtainable: Yes Allergies: Coded Allergies: No Known Allergies (Unverified , 09/19/20) Objective Last 24 Hour Vital Signs Date Time Temp Pulse Resp B/P (MAP) Pulse Ox O2 Delivery O2 Flow Rate FiO2 09/22/20 08:00 Room Air 09/22/20 08:00 98.3 101 18 121/72 (88) 100 09/22/20 04:00 Room Air 09/22/20 04:00 97.2 110 18 108/74 (85) 100 09/22/20 03:29 105 09/22/20 00:00 Room Air 09/22/20 00:00 97.9 85 18 122/69 (86) 100 09/21/20 23:43 122 09/21/20 20:00 97.7 96 18 107/61 (76) 100 09/21/20 20:00 Room Air 09/21/20 19:21 100 09/21/20 16:00 97.0 97 19 108/68 (81) 100 09/21/20 16:00 94 09/21/20 16:00 Room Air 09/21/20 12:00 93 09/21/20 12:00 Room Air 09/21/20 12:00 97.2 94 18 109/70 (83) 100 Intake and Output 09/21/20 09/22/20 19:00 07:00 Intake Total 1000 ml 475 ml Output Total 750 ml Balance 250 ml 475 ml Intake Oral 1000 ml 420 ml IV Total 55 ml Output Urine Total 750 ml # Voids 3 2 # Bowel Movements 5 3 Laboratory Tests 09/21/20 12:10: White Blood Count 10.5, Red Blood Count 2.25L, Hemoglobin 7.4L, Hematocrit 21.6L , Mean Corpuscular Volume 96, Mean Corpuscular Hemoglobin 33.1H, Mean Corpuscular Hemoglobin Concent 34.4, Red Cell Distribution Width 18.5H, Platelet Count 74L, Mean Platelet Volume 6.4L, Neutrophils (%) (Auto) , Lymphocytes (%) (Auto) , Monocytes (%) (Auto) , Eosinophils (%) (Auto) , Basophils (%) (Auto) , Differential Total Cells Counted 100, Neutrophils % (Manual) 88H, Lymphocytes % (Manual) 6L, Monocytes % (Manual) 5, Eosinophils % (Manual) 1, Basophils % (Manual) 0, Band Neutrophils 0, Platelet Estimate DecreasedL, Platelet Morphology Normal, Hypochromasia 1+, Anisocytosis 1+, Sodium Level 135L, Potassium Level 3.9, Chloride Level 106, Carbon Dioxide Level 20L, Anion Gap 9, Blood Urea Nitrogen 21H, Creatinine 1.1, Estimat Glomerular Filtration Rate > 60, Glucose Level 161H, Calcium Level 8.3L, Phosphorus Level 3.7, Magnesium Level 2.0, Total Bilirubin 18.2H, Direct Bilirubin 12.9H, Aspartate Amino Transf (AST/SGOT) 197H, Alanine Aminotransferase (ALT/SGPT) 105H, Alkaline Phosphatase 131H, Total Protein 6.5, Albumin 1.7L, Globulin 4.8, Albumin/Globulin Ratio 0.4L 09/22/20 04:00: White Blood Count 13.3H, Red Blood Count 2.32L, Hemoglobin 7.9L, Hematocrit 21.8L, Mean Corpuscular Volume 94, Mean Corpuscular Hemoglobin 34.0H, Mean Corpuscular Hemoglobin Concent 36.2H, Red Cell Distribution Width 18.3H, Platelet Count 90L, Mean Platelet Volume 6.1L, Neutrophils (%) (Auto) , Lymphocytes (%) (Auto) , Monocytes (%) (Auto) , Eosinophils (%) (Auto) , B asophils (%) (Auto) , Neutrophils % (Manual) [Pending], Lymphocytes % (Manual) [Pending], Platelet Estimate [Pending], Platelet Morphology [Pending], Sodium Level 134L, Potassium Level 3.5, Chloride Level 103, Carbon Dioxide Level 23, Anion Gap 9, Blood Urea Nitrogen 18, Creatinine 1.1, Estimat Glomerular Filtration Rate > 60, Glucose Level 111H, Calcium Level 8.7, Total Bilirubin 19.8H, Direct Bilirubin 13.7H, Aspartate Amino Transf (AST/SGOT) 209H, Alanine Aminotransferase (ALT/SGPT) 115H, Alkaline Phosphatase 145H, Total Protein 7.2, Albumin 1.8L, Globulin 5.4, Albumin/Globulin Ratio 0.3L, Prothrombin Time 19.0H, Prothromb Time International Ratio 1.8H, Activated Partial Thromboplast Time 55H, Ammonia 12 Height (Feet): 5 Height (Inches): 9.00 Weight (Pounds): 155 General Appearance: no apparent distress EENT: normal ENT inspection Neck: supple Cardiovascular: normal rate Respiratory/Chest: decreased breath sounds Abdomen: normal bowel sounds, non tender, soft Extremities: non-tender Assessment/Plan Problem List: (1) GI bleed ICD Codes: K92.2 - Gastrointestinal hemorrhage, unspecified SNOMED: 94310794 (2) Hepatitis C ICD Codes: B19.20 - Unspecified viral hepatitis C without hepatic coma SNOMED: 42259131 (3) Alcoholic liver disease ICD Codes: K70.9 - Alcoholic liver disease, unspecified SNOMED: 77620816 (4) Anemia ICD Codes: D64.9 - Anemia, unspecified SNOMED: 599618211 Assessment/Plan: s/p EGD stable H&H advance diet repeat labs will fu Arpit Reyez MD Sep 22, 2020 08:32
[2020-09-22] MEDS: Lactulose 20gm/30ml UDC ORAL SCH ×2 (08:41→17:35)
[2020-09-22] MEDS: Pantoprazole Inj IVP SCH ×2 (08:41→20:26)
[2020-09-22] MEDS ORDERED: NS 275ml ONE (08:59)
--- NOTE | 2020-09-22 11:19 | Nephrology Progress Note ---
Assessment/Plan Problem List: (1) Hyponatremia (2) Hepatitis C (3) Alcoholic liver disease (4) Liver cirrhosis, alcoholic (5) GI bleed (6) Sepsis (7) GLENN (acute kidney injury) Assessment Acute renal failure Hyponatremia and electrolyte imbalances GI bleed, severe anemia Sepsis, leukocytosis Liver cirrhosis, alcoholic, hepatitis C Plan September 22: Remains stable from renal standpoint of view September 21: Remains stable from renal standpoint of view. Hemoglobin low September 20: Labs reviewed. Electrolytes and creatinine within normal range. Stable from renal standpoint to view. Continue per consultants. September 19: Hydrate Monitor electrolytes IV Protonix Monitor hemoglobin and hematocrit Anemia work-up Per GI Per consultants Per orders Subjective ROS Limited/Unobtainable: No Objective Objective Last 24 Hour Vital Signs Date Time Temp Pulse Resp B/P (MAP) Pulse Ox O2 Delivery O2 Flow Rate FiO2 09/22/20 08:00 103 09/22/20 08:00 Room Air 09/22/20 08:00 98.3 101 18 121/72 (88) 100 09/22/20 04:00 Room Air 09/22/20 04:00 97.2 110 18 108/74 (85) 100 09/22/20 03:29 105 09/22/20 00:00 Room Air 09/22/20 00:00 97.9 85 18 122/69 (86) 100 09/21/20 23:43 122 09/21/20 20:00 97.7 96 18 107/61 (76) 100 09/21/20 20:00 Room Air 09/21/20 19:21 100 09/21/20 16:00 97.0 97 19 108/68 (81) 100 09/21/20 16:00 94 09/21/20 16:00 Room Air 09/21/20 12:00 93 09/21/20 12:00 Room Air 09/21/20 12:00 97.2 94 18 109/70 (83) 100 Intake and Output 09/21/20 09/22/20 19:00 07:00 Intake Total 1000 ml 475 ml Output Total 750 ml Balance 250 ml 475 ml Intake Oral 1000 ml 420 ml IV Total 55 ml Output Urine Total 750 ml # Voids 3 2 # Bowel Movements 5 3 Current Medications Medications (Trade) Dose Ordered Sig/Santino Route PRN Reason Start Time Stop Time Status Last Admin Dose Admin Ceftriaxone Sodium 1 gm/ Dextrose 55 ml @ 110 mls/hr Q24H IVPB 09/20/20 20:00 09/27/20 19:59 09/21/20 20:18 Folic Acid (Folate) 1 mg DAILY ORAL 09/21/20 09:00 10/21/20 08:59 09/22/20 08:41 Hydromorphone HCl (Dilaudid) 2 mg Q4H PRN ORAL For Pain 09/21/20 19:45 09/28/20 19:44 09/22/20 00:30 Lactulose (Cephulac) 30 gm BID ORAL 09/20/20 11:30 10/20/20 11:29 09/22/20 08:41 Levothyroxine Sodium (Synthroid) 25 mcg DAILY@0630 ORAL 09/21/20 06:30 10/21/20 06:29 09/22/20 05:40 Ondansetron HCl (Zofran) 4 mg Q4HR PRN IVP Nausea & Vomiting 09/20/20 10:15 10/20/20 10:14 09/22/20 04:50 Pantoprazole (Protonix) 40 mg EVERY 12 HOURS IVP 09/20/20 21:00 10/20/20 20:59 09/22/20 08:41 Laboratory Tests 09/21/20 12:10: White Blood Count 10.5, Red Blood Count 2.25L, Hemoglobin 7.4L, Hematocrit 21.6L , Mean Corpuscular Volume 96, Mean Corpuscular Hemoglobin 33.1H, Mean Corpu scular Hemoglobin Concent 34.4, Red Cell Distribution Width 18.5H, Platelet Count 74L, Mean Platelet Volume 6.4L, Neutrophils (%) (Auto) , Lymphocytes (%) (Auto) , Monocytes (%) (Auto) , Eosinophils (%) (Auto) , Basophils (%) (Auto) , Differential Total Cells Counted 100, Neutrophils % (Manual) 88H, Lymphocytes % (Manual) 6L, Monocytes % (Manual) 5, Eosinophils % (Manual) 1, Basophils % (Manual) 0, Band Neutrophils 0, Platelet Estimate DecreasedL, Platelet Morphology Normal, Hypochromasia 1+, Anisocytosis 1+, Sodium Level 135L, Potassium Level 3.9, Chloride Level 106, Carbon Dioxide Level 20L, Anion Gap 9, Blood Urea Nitrogen 21H, Creatinine 1.1, Estimat Glomerular Filtration Rate > 60, Glucose Level 161H, Calcium Level 8.3L, Phosphorus Level 3.7, Magnesium Level 2.0, Total Bilirubin 18.2H, Direct Bilirubin 12.9H, Aspartate Amino Transf (AST/SGOT) 197H, Alanine Aminotransferase (ALT/SGPT) 105H, Alkaline Phosphatase 131H, Total Protein 6.5, Albumin 1.7L, Globulin 4.8, Albumin/Globulin Ratio 0.4L 09/22/20 04:00: White Blood Count 13.3H, Red Blood Count 2.32L, Hemoglobin 7.9L, Hematocrit 21. 8L, Mean Corpuscular Volume 94, Mean Corpuscular Hemoglobin 34.0H, Mean Corpuscular Hemoglobin Concent 36.2H, Red Cell Distribution Width 18.3H, Platelet Count 90L, Mean Platelet Volume 6.1L, Neutrophils (%) (Auto) , Lymphocytes (%) (Auto) , Monocytes (%) (Auto) , Eosinophils (%) (Auto) , Basophils (%) (Auto) , Differential Total Cells Counted 100, Neutrophils % (Manual) 85H, Lymphocytes % (Manual) 9L, Monocytes % (Manual) 6, Eosinophils % (Manual) 0, Basophils % (Manual) 0, Band Neutrophils 0, Platelet Estimate DecreasedL, Platelet Morphology Normal, Hypochromasia 1+, Anisocytosis 1+, Sodium Level 134L, Potassium Level 3.5, Chloride Level 103, Carbon Dioxide Level 23, Anion Gap 9, Blood Urea Nitrogen 18, Creatinine 1.1, Estimat Glomerular Filtration Rate > 60, Glucose Level 111H, Calcium Level 8.7, Total Bilirubin 19.8H, Direct Bilirubin 13.7H, Aspartate Amino Transf (AST/SGOT) 209H, Alanine Aminotransferase (ALT/SGPT) 115H, Alkaline Phosphatase 145H, Total Protein 7.2, Albumin 1.8L, Globulin 5.4, Albumin/Globulin Ratio 0.3L, Prothrombin Time 19.0H, Prothromb Time International Ratio 1.8H, Activated Partial Thromboplast Time 55H , Ammonia 12 Height (Feet): 5 Height (Inches): 9.00 Weight (Pounds): 155 General Appearance: no apparent distress Cardiovascular: tachycardia Respiratory/Chest: decreased breath sounds Abdomen: distended Santo Pruitt MD Sep 22, 2020 11:19
[2020-09-22 12:00] VITALS: BP 118/64
--- NOTE | 2020-09-22 12:47 | NUR ---
NURSE NOTES: Patient arrived on unit via hospital bed. Stable. Denies pain or SOB. Breathing is even and unlabored on room air. No visible signs of distress noted. Patient instructed to use call light for assistance, verbalized understanding. Patient's skin is c/d/i. All belongings at bedside. Patient appears comfortable, all needs met at this time. Patient is in bed in locked and lowest position with call light within reach. Will continue to monitor.
--- NOTE | 2020-09-22 12:48 | Internal Med Progress Note ---
Subjective Date of Service: Sep 22, 2020 Physician Name SeraAidan Attending Physician Ridge Pena MD Current Medications Medications (Trade) Dose Ordered Sig/Santino Route PRN Reason Start Time Stop Time Status Last Admin Dose Admin Ceftriaxone Sodium 1 gm/ Dextrose 55 ml @ 110 mls/hr Q24H IVPB 09/20/20 20:00 09/27/20 19:59 09/21/20 20:18 Folic Acid (Folate) 1 mg DAILY ORAL 09/21/20 09:00 10/21/20 08:59 09/22/20 08:41 Hydromorphone HCl (Dilaudid) 2 mg Q4H PRN ORAL For Pain 09/21/20 19:45 09/28/20 19:44 09/22/20 00:30 Lactulose (Cephulac) 30 gm BID ORAL 09/20/20 11:30 10/20/20 11:29 09/22/20 08:41 Levothyroxine Sodium (Synthroid) 25 mcg DAILY@0630 ORAL 09/21/20 06:30 10/21/20 06:29 09/22/20 05:40 Ondansetron HCl (Zofran) 4 mg Q4HR PRN IVP Nausea & Vomiting 09/20/20 10:15 10/20/20 10:14 09/22/20 04:50 Pantoprazole (Protonix) 40 mg EVERY 12 HOURS IVP 09/20/20 21:00 10/20/20 20:59 09/22/20 08:41 Allergies: Coded Allergies: No Known Allergies (Unverified , 09/19/20) ROS Limited/Unobtainable: No Constitutional: Reports: no symptoms HEENT: Reports: no symptoms Cardiovascular: Reports: no symptoms Respiratory: Reports: no symptoms Gastrointestinal/Abdominal: Reports: no symptoms Genitourinary: Reports: no symptoms Neurologic/Psychiatric: Reports: no symptoms Subjective 35 YO M admitted with GI bleed. S/P endoscopy 09/20/20=esophageal ulcer. Cover for Int Mona Pena Objective Last Vital Signs Date Time Temp Pulse Resp B/P (MAP) Pulse Ox O2 Delivery O2 Flow Rate FiO2 09/22/20 12:00 98.0 96 17 118/64 (82) 100 09/22/20 08:00 Room Air 09/20/20 14:30 3 Laboratory Tests Test 09/22/20 04:00 White Blood Count 13.3 K/UL (4.8-10.8) H Red Blood Count 2.32 M/UL (4.70-6.10) L Hemoglobin 7.9 G/DL (14.2-18.0) L Hematocrit 21.8 % (42.0-52.0) L Mean Corpuscular Volume 94 FL (80-99) Mean Corpuscular Hemoglobin 34.0 PG (27.0-31.0) H Mean Corpuscular Hemoglobin Concent 36.2 G/DL (32.0-36.0) H Red Cell Distribution Width 18.3 % (11.6-14.8) H Platelet Count 90 K/UL (150-450) L Mean Platelet Volume 6.1 FL (6.5-10.1) L Neutrophils (%) (Auto) % (45.0-75.0) Lymphocytes (%) (Auto) % (20.0-45.0) Monocytes (%) (Auto) % (1.0-10.0) Eosinophils (%) (Auto) % (0.0-3.0) Basophils (%) (Auto) % (0.0-2.0) Differential Total Cells Counted 100 Neutrophils % (Manual) 85 % (45-75) H Lymphocytes % (Manual) 9 % (20-45) L Monocytes % (Manual) 6 % (1-10) Eosinophils % (Manual) 0 % (0-3) Basophils % (Manual) 0 % (0-2) Band Neutrophils 0 % (0-8) Platelet Estimate Decreased L Platelet Morphology Normal Hypochromasia 1+ Anisocytosis 1+ Prothrombin Time 19.0 SEC (9.30-11.50) H Prothromb Time International Ratio 1.8 (0.9-1.1) H Activated Partial Thromboplast Time 55 SEC (23-33) H Sodium Level 134 MMOL/L (136-145) L Potassium Level 3.5 MMOL/L (3.5-5.1) Chloride Level 103 MMOL/L (98-107) Carbon Dioxide Level 23 MMOL/L (21-32) Anion Gap 9 mmol/L (5-15) Blood Urea Nitrogen 18 mg/dL (7-18) Creatinine 1.1 MG/DL (0.55-1.30) Estimat Glomerular Filtration Rate > 60 mL/min (>60) Glucose Level 111 MG/DL (74-106) H Calcium Level 8.7 MG/DL (8.5-10.1) Total Bilirubin 19.8 MG/DL (0.2-1.0) H Direct Bilirubin 13.7 MG/DL (0.0-0.3) H Aspartate Amino Transf (AST/SGOT) 209 U/L (15-37) H Alanine Aminotransferase (ALT/SGPT) 115 U/L (12-78) H Alkaline Phosphatase 145 U/L (46-116) H Ammonia 12 umol/L (11-32) Total Protein 7.2 G/DL (6.4-8.2) Albumin 1.8 G/DL (3.4-5.0) L Globulin 5.4 g/dL Albumin/Globulin Ratio 0.3 (1.0-2.7) L Microbiology Date/Time Source Procedure Growth Status 09/20/20 12:00 Nasopharynx SARS-CoV-2 RdRp Gene Assay - Final Complete 09/19/20 22:54 Urine,Clean Catch Urine Culture - Final NO GROWTH AFTER 48 HOURS Complete 09/19/20 20:30 Blood Blood Culture - Preliminary NO GROWTH AFTER 48 HOURS Resulted 09/19/20 20:15 Blood Blood Culture - Preliminary NO GROWTH AFTER 48 HOURS Resulted Intake and Output 09/21/20 09/22/20 19:00 07:00 Intake Total 1000 ml 475 ml Output Total 750 ml Balance 250 ml 475 ml Intake Oral 1000 ml 420 ml IV Total 55 ml Output Urine Total 750 ml # Voids 3 2 # Bowel Movements 5 3 Objective PHYSICAL EXAMINATION: GENERAL: The patient is thin-appearing male, in no apparent distress. HEENT: Eyes, pupils are equal and responsive to light and accommodation. Extraocular movements are intact. NECK: Supple without lymphadenopathy. CHEST: Lungs are clear to auscultation bilaterally without wheezes or rales. CARDIOVASCULAR: Regular rate. S1 and S2 are normal without murmurs, rubs, or gallops. ABDOMEN: Soft, nontender, nondistended. Positive bowel sounds. No evidence of hepatosplenomegaly. Currently, no rebound or guarding noted. EXTREMITIES: Negative for clubbing, cyanosis, or edema. RECTAL/GENITAL: Not performed. NEUROLOGIC: Cranial nerves II through XII are grossly intact without focal deficits. Motor strength is 5/5 bilaterally. Deep tendon reflexes are 2+ plantar. Assessment/Plan Assessment/Plan ASSESSMENT: This is a 35-year-old male: 1. Gastrointestinal hemorrhage. 2. Severe anemia. 3. Alcohol liver cirrhosis. 4. Hepatitis C. 5. Alcohol dependence, in remission. 6. Hypothyroidism. TREATMENT: 1. Gastrointestinal hemorrhage. S/P endoscopy 09/20/20=esophageal ulcer. Gastroenterology = Dr. Arpit Reyez. We will follow recommendations of Gastroenterology. 2. Severe anemia. S/P transfusion 2 units of packed RBCs and 1 unit FFP. Blood loss is secondary to gastrointestinal hemorrhage as above. 3. Alcohol liver cirrhosis Continue lactulose per GI 4. Hepatitis C. 5. Alcohol dependence, in remission. 6. Hypothyroidism. Continue Levoxyl as above. Aidan Zamora MD Sep 22, 2020 12:48
--- NOTE | 2020-09-22 12:50 | NUR ---
TRANSFER TO FLOOR: Patient transferred to 3E room 312-1, per Md order. Report given to CAROLINA Cabello. Belongings and medications given to Receiving nurse. Pt in stable condition, endorsed plan of care.
--- NOTE | 2020-09-22 12:53 | NUR ---
NURSE NOTES: Rounds done with Dr. Zamora. All lab results reviewed, no new orders. Will continue to plan of care.
[2020-09-22 16:00] VITALS: BP 112/70
--- NOTE | 2020-09-22 16:00 | NUR ---
NURSE NOTES: patient had bm x1, brown and liquid output. No blood noted in stool at this time. Will continue to monitor.
--- NOTE | 2020-09-22 19:35 | NUR ---
NURSE HAND-OFF: Important Events on Shift: transfer from ranjit Patient Status: stable Diet: regular Pending Orders: n/a Pending Results/Labs:n/a Pending MD notification:n/a Latest Vital Signs: Temperature 97.9 , Pulse 89 , B/P 112 /70 , Respiratory Rate 18 , O2 SAT 98 , Room Air, O2 Flow Rate 3 . Vital Sign Comment: n/a Latest Julian Fall Score: 45 Fall Risk: High Risk Safety Measures: Call light Within Reach, Bed Alarm Zone 3, Side Rails Side Rails x3, Bed position Low and Locked. Fall Precautions: Yellow Socks Yellow Gown Door Sign Patient Fall Education Report given to Nora FIGUEROA.
--- NOTE | 2020-09-22 19:45 | NUR ---
NURSE NOTES: Received report from Destiney FIGUEROA. Patient is calm, sleeping, and no visible signs of distress noted. Patient is on room air with breathing even and unlabored. Skin is dry and intact. IV on both left and right AC intact and patent. Bed low and locked. Call light within reach. Will continue to monitor.
[2020-09-22 20:00] VITALS: BP 104/67
[2020-09-22] MEDS: cefTRIAXone 1 GM in D5W 55 ML IVPB SCH (20:26)
[2020-09-23] VITALS: BP 102/67
[2020-09-23 04:00] VITALS: BP 98/63
[2020-09-23 05:52] LABS: HEMATOCRIT 19.6 % (42.0-52.0); MEAN CORPUSCULAR VOLUME 101 FL (80-99); PLATELET COUNT 56 K/UL (150-450); RED BLOOD COUNT 1.95 M/UL (4.70-6.10); RED CELL DISTRIBUTION WIDTH 17.9 % (11.6-14.8); WHITE BLOOD COUNT 6.3 K/UL (4.8-10.8)
--- NOTE | 2020-09-23 06:00 | NUR ---
NURSE NOTES: Received a call from lab; Hgb critical result 6.7; Will call
[2020-09-23 06:03] LABS: HEMOGLOBIN 6.7 G/DL (14.2-18.0)
[2020-09-23 06:25] LABS: ALANINE AMINOTRANSFERASE 104 U/L (12-78); ALBUMIN 1.5 G/DL (3.4-5.0); ALBUMIN/GLOBULIN RATIO 0.3 (1.0-2.7); ALKALINE PHOSPHATASE 119 U/L (46-116); ANION GAP 5 mmol/L (5-15); ASPARTATE AMINO TRANSFERASE 187 U/L (15-37); BILIRUBIN,TOTAL 16.2 MG/DL (0.2-1.0); BLOOD UREA NITROGEN 13 mg/dL (7-18); CALCIUM 8.2 MG/DL (8.5-10.1); CARBON DIOXIDE 23 MMOL/L (21-32); CHLORIDE 105 MMOL/L (98-107); POTASSIUM 3.6 MMOL/L (3.5-5.1); SODIUM 133 MMOL/L (136-145)
[2020-09-23 06:32] LABS: BILIRUBIN,DIRECT 11.8 MG/DL (0.0-0.3)
--- NOTE | 2020-09-23 06:40 | NUR ---
NURSE NOTES: Received new orders form Dr. Pena to transfuse 2 units prbc. Will carry out
[2020-09-23] MEDS: Levothyroxine 25mcg tab ORAL SCH (06:54)
--- NOTE | 2020-09-23 07:48 | NUR ---
NURSE HAND-OFF: Important Events on Shift:Critical lab result, new orders received to transfuse 2units of prbc Patient Status: stable Diet: cardiac Pending Orders: none Pending Results/Labs: Pending MD notification:informed MD of Hgb 6.7 Latest Vital Signs: Temperature 98.9 , Pulse 96 , B/P 98 /63 , Respiratory Rate 18 , O2 SAT 98 , Room Air, O2 Flow Rate 3 . Vital Sign Comment: Latest Julian Fall Score: 45 Fall Risk: High Risk Safety Measures: Call light Within Reach, Bed Alarm Zone 3, Side Rails Side Rails x2, Bed position Low and Locked. Fall Precautions: Yellow Socks Yellow Gown Door Sign Patient Fall Education Report given to CAROLINA Cabello.
[2020-09-23 08:00] VITALS: BP 106/64
[2020-09-23] MEDS: Lactulose 20gm/30ml UDC ORAL SCH ×2 (08:07→18:14)
[2020-09-23] MEDS: Pantoprazole Inj IVP SCH (08:07)
--- NOTE | 2020-09-23 08:38 | General Progress Note ---
Subjective ROS Limited/Unobtainable: Yes Allergies: Coded Allergies: No Known Allergies (Unverified , 09/19/20) Objective Last 24 Hour Vital Signs Date Time Temp Pulse Resp B/P (MAP) Pulse Ox O2 Delivery O2 Flow Rate FiO2 09/23/20 04:00 98.9 96 18 98/63 (75) 98 09/23/20 00:00 98.4 90 18 102/67 (79) 98 09/22/20 21:00 Room Air 09/22/20 20:00 98.4 95 18 104/67 (79) 98 09/22/20 16:00 97.9 89 18 112/70 (84) 98 09/22/20 12:00 98.0 96 17 118/64 (82) 100 Intake and Output 09/22/20 09/23/20 19:00 07:00 Intake Total 655 ml Balance 655 ml Intake Oral 600 ml IV Total 55 ml # Voids 1 # Bowel Movements 1 1 Laboratory Tests 09/23/20 05:30: White Blood Count 6.3#, Red Blood Count 1.95L, Hemoglobin 6.7*L, Hematocrit 19.6L, Mean Corpuscular Volume 101H, Mean Corpuscular Hemoglobin 34.2H, Mean Corpuscular Hemoglobin Concent 33.9, Red Cell Distribution Width 17.9H, Platelet Count 56L, Mean Platelet Volume 7.0, Neutrophils (%) (Auto) , Lymphocytes (%) (Auto) , Monocytes (%) (Auto) , Eosinophils (%) (Auto) , Basophils (%) (Auto) , Differential Total Cells Counted 100, Neutrophils % (Manual) 83H, Lymphocytes % (Manual) 12L, Monocytes % (Manual) 4, Eosinophils % (Manual) 1, Basophils % (Manual) 0, Band Neutrophils 0, Platelet Estimate DecreasedL, Platelet Morphology Normal, Hypochromasia 1+, Anisocytosis 1+, Sodium Level 133L, Potassium Level 3.6, Chloride Level 105, Carbon Dioxide Level 23, Anion Gap 5, Blood Urea Nitrogen 13, Creatinine 1.0, Estimat Glomerular Filtration Rate > 60, Glucose Level 106, Calcium Level 8.2L, Total Bilirubin 16.2H, Direct Bilirubin 11.8H, Aspartate Amino Transf (AST/SGOT) 187H, Alanine Aminotransferase (ALT/SGPT) 104H, Alkaline Phosphatase 119H, Total Protein 6.3L, Albumin 1.5L, Globulin 4.8, Albumin/Globulin Ratio 0.3L Height (Feet): 5 Height (Inches): 9.00 Weight (Pounds): 155 General Appearance: no apparent distress EENT: normal ENT inspection Neck: supple Cardiovascular: normal rate Respiratory/Chest: decreased breath sounds Abdomen: normal bowel sounds, non tender, soft Extremities: non-tender Assessment/Plan Problem List: (1) GI bleed ICD Codes: K92.2 - Gastrointestinal hemorrhage, unspecified SNOMED: 52084368 (2) Hepatitis C ICD Codes: B19.20 - Unspecified viral hepatitis C without hepatic coma SNOMED: 86872781 (3) Alcoholic liver disease ICD Codes: K70.9 - Alcoholic liver disease, unspecified SNOMED: 22774201 (4) Anemia ICD Codes: D64.9 - Anemia, unspecified SNOMED: 297434508 Assessment/Plan: s/p EGD transfuse repeat labs will fu Arpit Reyez MD Sep 23, 2020 08:38
[2020-09-23] MEDS: Hydrocortisone 25mg supp RECTAL SCH ×2 (09:03→18:14)
--- NOTE | 2020-09-23 09:16 | Infectious Diseases Prog Note ---
Assessment/Plan 35yo M with: Afebrile Leukocytosis, SP- likely reactive 09/19 BCx neg, UCx neg COVID19 neg x1 (09/20 rapid COVID PCR neg) -09/19 CXR: no acute disease Pyuria- No UTI symptoms -u/a wbc 10-15, nit +, leuk +1; ucx NTD UGIB 2ry to ulcer -09/20 EGD: 1. Status post successful Hemoclip-assistance hemostasis of ulcer at the GE junction. Portal hypertensive gastropathy. No obvious esophageal or gastric varices. EtOH and Hep C cirrhosis (on transplant list) Plan: Cont CTX #5/ for ppx given GIB in setting of cirrhosis Ok to d/c home off abx Monitor CBC/CMP Monitor temp curve, hemodynamics Monitor resp status D/w RN Thank you for this consult. [facility] will continue to follow. Subjective Allergies: Coded Allergies: No Known Allergies (Unverified , 09/19/20) AF WBC 6.3 Hg down to 6.7 NAD in bed, still reports dark stools, some abd discomfort w/ ascites Objective Last 24 Hour Vital Signs Date Time Temp Pulse Resp B/P (MAP) Pulse Ox O2 Delivery O2 Flow Rate FiO2 09/23/20 04:00 98.9 96 18 98/63 (75) 98 09/23/20 00:00 98.4 90 18 102/67 (79) 98 09/22/20 21:00 Room Air 09/22/20 20:00 98.4 95 18 104/67 (79) 98 09/22/20 16:00 97.9 89 18 112/70 (84) 98 09/22/20 12:00 98.0 96 17 118/64 (82) 100 Height (Feet): 5 Height (Inches): 9.00 Weight (Pounds): 155 Gen: NAD in bed HEENT: NCAT, EOMI, PERRL, scleral icterus CV: RRR Pulm: CTAB Abd: Soft, +ascites, mildly TTP Ext: No c/c/e Neuro: Awake Microbiology Date/Time Source Procedure Growth Status 09/20/20 12:00 Nasopharynx SARS-CoV-2 RdRp Gene Assay - Final Complete Laboratory Tests Test 09/23/20 05:30 White Blood Count 6.3 K/UL (4.8-10.8) # Red Blood Count 1.95 M/UL (4.70-6.10) L Hemoglobin 6.7 G/DL (14.2-18.0) *L Hematocrit 19.6 % (42.0-52.0) L Mean Corpuscular Volume 101 FL (80-99) H Mean Corpuscular Hemoglobin 34.2 PG (27.0-31.0) H Mean Corpuscular Hemoglobin Concent 33.9 G/DL (32.0-36.0) Red Cell Distribution Width 17.9 % (11.6-14.8) H Platelet Count 56 K/UL (150-450) L Mean Platelet Volume 7.0 FL (6.5-10.1) Neutrophils (%) (Auto) % (45.0-75.0) Lymphocytes (%) (Auto) % (20.0-45.0) Monocytes (%) (Auto) % (1.0-10.0) Eosinophils (%) (Auto) % (0.0-3.0) Basophils (%) (Auto) % (0.0-2.0) Differential Total Cells Counted 100 Neutrophils % (Manual) 83 % (45-75) H Lymphocytes % (Manual) 12 % (20-45) L Monocytes % (Manual) 4 % (1-10) Eosinophils % (Manual) 1 % (0-3) Basophils % (Manual) 0 % (0-2) Band Neutrophils 0 % (0-8) Platelet Estimate Decreased L Platelet Morphology Normal Hypochromasia 1+ Anisocytosis 1+ Sodium Level 133 MMOL/L (136-145) L Potassium Level 3.6 MMOL/L (3.5-5.1) Chloride Level 105 MMOL/L (98-107) Carbon Dioxide Level 23 MMOL/L (21-32) Anion Gap 5 mmol/L (5-15) Blood Urea Nitrogen 13 mg/dL (7-18) Creatinine 1.0 MG/DL (0.55-1.30) Estimat Glomerular Filtration Rate > 60 mL/min (>60) Glucose Level 106 MG/DL (74-106) Calcium Level 8.2 MG/DL (8.5-10.1) L Total Bilirubin 16.2 MG/DL (0.2-1.0) H Direct Bilirubin 11.8 MG/DL (0.0-0.3) H Aspartate Amino Transf (AST/SGOT) 187 U/L (15-37) H Alanine Aminotransferase (ALT/SGPT) 104 U/L (12-78) H Alkaline Phosphatase 119 U/L (46-116) H Total Protein 6.3 G/DL (6.4-8.2) L Albumin 1.5 G/DL (3.4-5.0) L Globulin 4.8 g/dL Albumin/Globulin Ratio 0.3 (1.0-2.7) L Current Medications Medications (Trade) Dose Ordered Sig/Santino Route PRN Reason Start Time Stop Time Status Last Admin Dose Admin Ceftriaxone Sodium 1 gm/ Dextrose 55 ml @ 110 mls/hr Q24H IVPB 09/20/20 20:00 09/27/20 19:59 09/22/20 20:26 Folic Acid (Folate) 1 mg DAILY ORAL 09/21/20 09:00 10/21/20 08:59 09/23/20 08:08 Hydrocortisone (Anusol HC) 25 mg TWICE A DAY RECTAL 09/23/20 09:00 12/22/20 08:59 09/23/20 09:03 Hydromorphone HCl (Dilaudid) 2 mg Q4H PRN ORAL For Pain 09/21/20 19:45 09/28/20 19:44 09/22/20 00:30 Lactulose (Cephulac) 30 gm BID ORAL 09/20/20 11:30 10/20/20 11:29 09/23/20 08:07 Levothyroxine Sodium (Synthroid) 25 mcg DAILY@0630 ORAL 09/21/20 06:30 10/21/20 06:29 09/23/20 06:54 Ondansetron HCl (Zofran) 4 mg Q4HR PRN IVP Nausea & Vomiting 09/20/20 10:15 10/20/20 10:14 09/22/20 17:35 Pantoprazole (Protonix) 40 mg EVERY 12 HOURS IVP 09/20/20 21:00 10/20/20 20:59 09/23/20 08:07 Lissette Au M.D. Sep 23, 2020 09:16
--- NOTE | 2020-09-23 10:00 | NUR ---
NURSE NOTES: Orders from Dr. St to discharge patient home after transfusing 2 unit prbc noted. Patient is aware of plan. Awaiting blood from blood bank. Patient is stable. Will continue to monitor.
--- NOTE | 2020-09-23 10:45 | Nephrology Progress Note ---
Assessment/Plan Problem List: (1) Hyponatremia (2) Hepatitis C (3) Alcoholic liver disease (4) Liver cirrhosis, alcoholic (5) GI bleed (6) Sepsis (7) GLENN (acute kidney injury) Assessment Acute renal failure Hyponatremia and electrolyte imbalances GI bleed, severe anemia Sepsis, leukocytosis Liver cirrhosis, alcoholic, hepatitis C Plan September 23: Remains stable from renal standpoint of view. Hemoglobin lower. Suggest transfusion, continue per GI. September 22: Remains stable from renal standpoint of view. September 21: Remains stable from renal standpoint of view. Hemoglobin low September 20: Labs reviewed. Electrolytes and creatinine within normal range. Stable from renal standpoint to view. Continue per consultants. September 19: Hydrate Monitor electrolytes IV Protonix Monitor hemoglobin and hematocrit Anemia work-up Per GI Per consultants Per orders Subjective ROS Limited/Unobtainable: No Constitutional: Reports: malaise, weakness Objective Objective Last 24 Hour Vital Signs Date Time Temp Pulse Resp B/P (MAP) Pulse Ox O2 Delivery O2 Flow Rate FiO2 09/23/20 09:00 Room Air 09/23/20 08:00 98.5 98 18 106/64 (78) 100 09/23/20 04:00 98.9 96 18 98/63 (75) 98 09/23/20 00:00 98.4 90 18 102/67 (79) 98 09/22/20 21:00 Room Air 09/22/20 20:00 98.4 95 18 104/67 (79) 98 09/22/20 16:00 97.9 89 18 112/70 (84) 98 09/22/20 12:00 98.0 96 17 118/64 (82) 100 Intake and Output 09/22/20 09/23/20 19:00 07:00 Intake Total 655 ml Balance 655 ml Intake Oral 600 ml IV Total 55 ml # Voids 1 # Bowel Movements 1 1 Current Medications Medications (Trade) Dose Ordered Sig/Santino Route PRN Reason Start Time Stop Time Status Last Admin Dose Admin Ceftriaxone Sodium 1 gm/ Dextrose 55 ml @ 110 mls/hr Q24H IVPB 09/20/20 20:00 09/27/20 19:59 09/22/20 20:26 Folic Acid (Folate) 1 mg DAILY ORAL 09/21/20 09:00 10/21/20 08:59 09/23/20 08:08 Hydrocortisone (Anusol HC) 25 mg TWICE A DAY RECTAL 09/23/20 09:00 12/22/20 08:59 09/23/20 09:03 Hydromorphone HCl (Dilaudid) 2 mg Q4H PRN ORAL For Pain 09/21/20 19:45 09/28/20 19:44 09/22/20 00:30 Lactulose (Cephulac) 30 gm BID ORAL 09/20/20 11:30 10/20/20 11:29 09/23/20 08:07 Levothyroxine Sodium (Synthroid) 25 mcg DAILY@0630 ORAL 09/21/20 06:30 10/21/20 06:29 09/23/20 06:54 Ondansetron HCl (Zofran) 4 mg Q4HR PRN IVP Nausea & Vomiting 09/20/20 10:15 10/20/20 10:14 09/22/20 17:35 Pantoprazole (Protonix) 40 mg EVERY 12 HOURS IVP 09/20/20 21:00 10/20/20 20:59 09/23/20 08:07 Laboratory Tests 09/23/20 05:30: White Blood Count 6.3#, Red Blood Count 1.95L, Hemoglobin 6.7*L, Hematocrit 19.6L, Mean Corpuscular Volume 101H, Mean Corpuscular Hemoglobin 34.2H, Mean Corpuscular Hemoglobin Concent 33.9, Red Cell Distribution Width 17.9H, Platelet Count 56L, Mean Platelet Volume 7.0, Neutrophils (%) (Auto) , Lymphocytes (%) (Auto) , Monocytes (%) (Auto) , Eosinophils (%) (Auto) , Basophils (%) (Auto) , Differential Total Cells Counted 100, Neutrophils % (Manual) 83H, Lymphocytes % (Manual) 12L, Monocytes % (Manual) 4, Eosinophils % (Manual) 1, Basophils % (Manual) 0, Band Neutrophils 0, Platelet Estimate DecreasedL, Platelet Morphology Normal, Hypochromasia 1+, Anisocytosis 1+, Sodium Level 133L, Po tassium Level 3.6, Chloride Level 105, Carbon Dioxide Level 23, Anion Gap 5, Blood Urea Nitrogen 13, Creatinine 1.0, Estimat Glomerular Filtration Rate > 60, Glucose Level 106, Calcium Level 8.2L, Total Bilirubin 16.2H, Direct Bilirubin 11.8H, Aspartate Amino Transf (AST/SGOT) 187H, Alanine Aminotransferase (ALT/SGPT) 104H, Alkaline Phosphatase 119H, Total Protein 6.3L, Albumin 1.5L, Globulin 4.8, Albumin/Globulin Ratio 0.3L Height (Feet): 5 Height (Inches): 9.00 Weight (Pounds): 155 General Appearance: no apparent distress Cardiovascular: tachycardia Respiratory/Chest: decreased breath sounds Abdomen: distended Santo Pruitt MD Sep 23, 2020 10:45
--- NOTE | 2020-09-23 11:26 | NUR ---
INSURANCE CLINICALS/HP FAXED TO [facility] [phone] FX [phone]
[2020-09-23 12:00] VITALS: BP 123/65
[2020-09-23] MEDS: HYDROmorphone 2mg tab ORAL PRN ×2 (13:10→18:52)
--- NOTE | 2020-09-23 13:10 | Internal Med Progress Note ---
Subjective Date of Service: Sep 23, 2020 Physician Name Aidan Zamora Attending Physician Ridge Pena MD Current Medications Medications (Trade) Dose Ordered Sig/Santino Route PRN Reason Start Time Stop Time Status Last Admin Dose Admin Ceftriaxone Sodium 1 gm/ Dextrose 55 ml @ 110 mls/hr Q24H IVPB 09/20/20 20:00 09/27/20 19:59 09/22/20 20:26 Folic Acid (Folate) 1 mg DAILY ORAL 09/21/20 09:00 10/21/20 08:59 09/23/20 08:08 Hydrocortisone (Anusol HC) 25 mg TWICE A DAY RECTAL 09/23/20 09:00 12/22/20 08:59 09/23/20 09:03 Hydromorphone HCl (Dilaudid) 2 mg Q4H PRN ORAL For Pain 09/21/20 19:45 09/28/20 19:44 09/22/20 00:30 Lactulose (Cephulac) 30 gm BID ORAL 09/20/20 11:30 10/20/20 11:29 09/23/20 08:07 Levothyroxine Sodium (Synthroid) 25 mcg DAILY@0630 ORAL 09/21/20 06:30 10/21/20 06:29 09/23/20 06:54 Ondansetron HCl (Zofran) 4 mg Q4HR PRN IVP Nausea & Vomiting 09/20/20 10:15 10/20/20 10:14 09/22/20 17:35 Pantoprazole (Protonix) 40 mg EVERY 12 HOURS IVP 09/20/20 21:00 10/20/20 20:59 09/23/20 08:07 Allergies: Coded Allergies: No Known Allergies (Unverified , 09/19/20) ROS Limited/Unobtainable: No Constitutional: Reports: no symptoms HEENT: Reports: no symptoms Cardiovascular: Reports: no symptoms Respiratory: Reports: no symptoms Gastrointestinal/Abdominal: Reports: no symptoms Genitourinary: Reports: no symptoms Neurologic/Psychiatric: Reports: no symptoms Subjective 35 YO M admitted with GI bleed. S/P endoscopy 09/20/20=esophageal ulcer. Cover for Int Mona Pena Objective Last Vital Signs Date Time Temp Pulse Resp B/P (MAP) Pulse Ox O2 Delivery O2 Flow Rate FiO2 09/23/20 12:00 97.7 82 18 123/65 (84) 100 09/23/20 09:00 Room Air 09/20/20 14:30 3 Laboratory Tests Test 09/23/20 05:30 White Blood Count 6.3 K/UL (4.8-10.8) # Red Blood Count 1.95 M/UL (4.70-6.10) L Hemoglobin 6.7 G/DL (14.2-18.0) *L Hematocrit 19.6 % (42.0-52.0) L Mean Corpuscular Volume 101 FL (80-99) H Mean Corpuscular Hemoglobin 34.2 PG (27.0-31.0) H Mean Corpuscular Hemoglobin Concent 33.9 G/DL (32.0-36.0) Red Cell Distribution Width 17.9 % (11.6-14.8) H Platelet Count 56 K/UL (150-450) L Mean Platelet Volume 7.0 FL (6.5-10.1) Neutrophils (%) (Auto) % (45.0-75.0) Lymphocytes (%) (Auto) % (20.0-45.0) Monocytes (%) (Auto) % (1.0-10.0) Eosinophils (%) (Auto) % (0.0-3.0) Basophils (%) (Auto) % (0.0-2.0) Differential Total Cells Counted 100 Neutrophils % (Manual) 83 % (45-75) H Lymphocytes % (Manual) 12 % (20-45) L Monocytes % (Manual) 4 % (1-10) Eosinophils % (Manual) 1 % (0-3) Basophils % (Manual) 0 % (0-2) Band Neutrophils 0 % (0-8) Platelet Estimate Decreased L Platelet Morphology Normal Hypochromasia 1+ Anisocytosis 1+ Sodium Level 133 MMOL/L (136-145) L Potassium Level 3.6 MMOL/L (3.5-5.1) Chloride Level 105 MMOL/L (98-107) Carbon Dioxide Level 23 MMOL/L (21-32) Anion Gap 5 mmol/L (5-15) Blood Urea Nitrogen 13 mg/dL (7-18) Creatinine 1.0 MG/DL (0.55-1.30) Estimat Glomerular Filtration Rate > 60 mL/min (>60) Glucose Level 106 MG/DL (74-106) Calcium Level 8.2 MG/DL (8.5-10.1) L Total Bilirubin 16.2 MG/DL (0.2-1.0) H Direct Bilirubin 11.8 MG/DL (0.0-0.3) H Aspartate Amino Transf (AST/SGOT) 187 U/L (15-37) H Alanine Aminotransferase (ALT/SGPT) 104 U/L (12-78) H Alkaline Phosphatase 119 U/L (46-116) H Total Protein 6.3 G/DL (6.4-8.2) L Albumin 1.5 G/DL (3.4-5.0) L Globulin 4.8 g/dL Albumin/Globulin Ratio 0.3 (1.0-2.7) L Intake and Output 09/22/20 09/23/20 19:00 07:00 Intake Total 655 ml Balance 655 ml Intake Oral 600 ml IV Total 55 ml # Voids 1 # Bowel Movements 1 1 Objective PHYSICAL EXAMINATION: GENERAL: The patient is thin-appearing male, in no apparent distress. HEENT: Eyes, pupils are equal and responsive to light and accommodation. Extraocular movements are intact. NECK: Supple without lymphadenopathy. CHEST: Lungs are clear to auscultation bilaterally without wheezes or rales. CARDIOVASCULAR: Regular rate. S1 and S2 are normal without murmurs, rubs, or gallops. ABDOMEN: Soft, nontender, nondistended. Positive bowel sounds. No evidence of hepatosplenomegaly. Currently, no rebound or guarding noted. EXTREMITIES: Negative for clubbing, cyanosis, or edema. RECTAL/GENITAL: Not performed. NEUROLOGIC: Cranial nerves II through XII are grossly intact without focal deficits. Motor strength is 5/5 bilaterally. Deep tendon reflexes are 2+ plantar. Assessment/Plan Assessment/Plan ASSESSMENT: This is a 35-year-old male: 1. Gastrointestinal hemorrhage. 2. Severe anemia. 3. Alcohol liver cirrhosis. 4. Hepatitis C. 5. Alcohol dependence, in remission. 6. Hypothyroidism. 7. Elevated liver function test 8. Jaundice TREATMENT: 1. Gastrointestinal hemorrhage. S/P endoscopy 09/20/20=esophageal ulcer. Gastroenterology = Dr. Arpit Reyez. We will follow recommendations of Gastroenterology. 2. Severe anemia. S/P transfusion 2 units of packed RBCs and 1 unit FFP. Transfuse 1 unit PRBC today 09/23/20 3. Alcohol liver cirrhosis Continue lactulose per GI 4. Hepatitis C. 5. Alcohol dependence, in remission. 6. Hypothyroidism. Continue Levoxyl as above. Aidan Zamora MD Sep 23, 2020 13:10
--- NOTE | 2020-09-23 13:35 | NUR ---
NURSE NOTES: Blood transfusion started. 1 unit prbc verified by 2 RN. IV patent, good blood return. Will monitor for transfusion reactions.
--- NOTE | 2020-09-23 13:50 | NUR ---
NURSE NOTES: No transfusion reaction noted at this time. See paper charting for vital signs. Patient stable. Will continue to monitor. Addendum: 09/23/20 at 1451 by CHAVA RODRIGUEZ RN Blood still transfusing, no s/s transfusion reactions at this time. Patient is stable. Will continue to monitor.
[2020-09-23 16:00] VITALS: BP 111/73
--- NOTE | 2020-09-23 16:40 | NUR ---
NURSE NOTES: First unit completed, second unit of prbc started as ordered. Blood verified by 2 RN. Stable. Patient informed of s/s to report. Refer to paper chart for vitals. Will continue to monitor.
--- NOTE | 2020-09-23 16:54 | NUR ---
NURSE NOTES: Transfusion running as ordered. RN monitored and assessed patient. VS in paper chart. Patient is stable. No s/s transfusion reaction at this time. Will continue to monitor.
--- NOTE | 2020-09-23 19:27 | NUR ---
HAND-OFF: Report given to Edilma, endorsed discharge. Patient made aware of discharge, after blood transfusion.
[2020-09-23 20:00] VITALS: BP 118/71
--- NOTE | 2020-09-23 20:22 | NUR ---
NURSE NOTES Patient discharged to home via private vehicle by hospital wheelchair. VSS stable after blood transfusion, no adverse reaction. 2 IV access discontinued, belongings accounted for and list signed. Patient left unit at 2021 with no incident.
--- NOTE | 2020-09-24 10:47 | NUR ---
INSURANCE REFAXED ALL CLINICALS/HP/ DC INSTRUCTIONS TO [facility] [phone] FX [phone]
--- NOTE | 2020-09-25 09:22 | Discharge Summary ---
Discharge Summary Discharge Summary _ DATE OF ADMISSION: 09/19/2020 DATE OF DISCHARGE: 09/23/2020 DISCHARGED BY: Dr. Pena REASON FOR ADMISSION: 35 years old male with past medical history of liver cirrhosis, history of alcohol abuse and hepatitis C, presented to emergency department complaining of bloody diarrhea. Patient reported several episodes of bloody diarrhea since the morning and last evening , preceded by nausea and bloody vomitus. He denied fever and chills. No abdominal pain. Patient reported similar episodes in the past. Patient seen and evaluated at [facility] and is waiting to be placed on the liver transplant list. His last drink was back in June. He denied any tremors. N o chest pain or shortness of breath. No fever or chills. Upon evaluation vital signs were stable. Laboratory work-up revealed significant leukocytosis WBC 21.3, hemoglobin 7.1, hematocrit 19.7 ,platelet count 134. Sodium 128, potassium 4.1. INR 2.3 BUN 20, creatinine 1.4. Glucose 123. Lactic acid 2.8. Total bili 20.7 , direct bili 14.9 , AST 190, ALT 102. Lipase 200 Ammonia 49 EKG revealed sinus tachycardia with heart rate 101 , no acute ischemic changes ,no PVC ,no ectopy. In emergency department patient pancultured , started on empiric antibiotics . Patient started on Sandostatin and Protonix drips, IV hydration . received antiemetic emetic and admitted for further management. CONSULTANTS: pulmonary/critical care Dr. St ID specialist Dr. Au GI specialist Dr. Reyez sodium chlorite operator Dr. Pruitt HOSPITAL COURSE: Patient admitted to medical surgical floor . Patient was kept n.p.o. and continued on Protonix and Sandostatin drips aling with IV fludis. GI specialist followed. Patient undergone upper endoscopy with hemostasis on 09/20. Patient undergone Hemoclip assisted hemostasis of ulcer at the GE junction. Procedure found portal hypertensive gastropathy, but no obvious esophageal or gastric varices. Patient slowly started on clear liquid diet as tolerated. Patient was on vitamin K . INR trended down to 1.8. Hemoglobin and hematocrit were closely monitored with goal to keep hemoglobin a tristan 7. Patient undergone transfusion of 5 units of packed red blood cells and 1 unit of fresh frozen plasma while in the hospital. Platelets trended down. Venous duplex bilateral lower extremity revealed no evidence of acute DVT. Patient started on empiric antibiotic. Rapid COVID-19 was negative. Urine culture was negative. Blood cultures were negative. Patient received empiric antibiotic for prophylaxis , given GI bleeding in setting of cirrhosis. Patient was on antibiotic for 5 days. ID specialist cleared him for discharge home without antibiotics. Leukocytosis resolved. No fevers. Patient received IV fluids. Hyponatremia work-up was done. Nephrotoxic's were avoided. Prior to discharge sodium up to 133. BUN 13 , creatinine 1.0. Acute kidney injury resolved. LFT only slightly trended down , and remained elevated. Ammonia from 49 down to 17 . Diet was slowly advanced , and patient was able to tolerate diet. TSH within normal limits. Current dose of levothyroxine continued. Supportive care provided. Patient was counseled to continue abstinence from EtOH. Patient clinically stabilized and was ready for discharge . FINAL DIAGNOSES: Upper GI hemorrhage due to ulcer Status post upper endoscopy with hemostasis of ulcer at the GE junction Severe anemia Portal hypertensive gastropathy Hepatitis C Alcoholic liver disease Alcoholic cirrhosis Leukocytosis -e resolved Hyponatremia Acute kidney injury -resolved Alcohol dependence, in remission DISCHARGE MEDICATIONS: See Medication Reconciliation list. DISCHARGE INSTRUCTIONS: Patient was discharged home. Follow-up with a primary care provider in 1 week. I have been assigned to dictate discharge summary for this account. I was not involved in the patient's management. Kristen Zuniga NP Sep 25, 2020 09:22
== END 2020-09-23 20:22 | disposition home or self-care (01) | DRG 720 ==
LOC: EDBD 19:36 → EMR 19:45 → EDBEDREQ 20:06 → EDBEDREQSVC 20:06 → 2W 20:25 → EDBEDREQ 20:30 → 2W 09-21 10:56 → 3E 09-22 12:47
PROC: 30233N1 Transfusion of Nonautologous Red Blood Cells into Peripheral Vein, Percutaneous Approach (ICD-10-PCS; 2020-09-19)
PROC: 0W3P8ZZ Control Bleeding in Gastrointestinal Tract, Via Natural or Artificial Opening Endoscopic (ICD-10-PCS; principal; 2020-09-20 14:05)
DX: A41.9 Sepsis, unspecified organism (principal); K28.4 Chronic or unspecified gastrojejunal ulcer with hemorrhage; N17.9 Acute kidney failure, unspecified; E87.1 Hypo-osmolality and hyponatremia; D64.9 Anemia, unspecified; K70.30 Alcoholic cirrhosis of liver without ascites; B19.20 Unspecified viral hepatitis C without hepatic coma; D68.9 Coagulation defect, unspecified; F10.21 Alcohol dependence, in remission; E03.9 Hypothyroidism, unspecified; K76.6 Portal hypertension; K31.89 Other diseases of stomach and duodenum
CPT/HCPCS: 36415; 71045; 80053; 80061; 81003; 82140; 82248; 82607; 82728; 82746; 82977; 83036; 83540; 83550; 83605; 83690; 83735; 83880; 84100; 84132; 84443; 84550; 85007; 85025; 85610; 85730; 86140; 86850; 86900; 86901; 86920; 86927; 87040; 87086; 93005; 93970; 94003; 94150; 96361; 96365; 96367; 96375; 99291; J2405; J3430; J7030; U0002

== ENCOUNTER 2020-09-25 12:17 | Inpatient (IN) | payer MEDICAID ==
[~2020-09-25] VITALS: Ht 175.3 cm; Wt 73.0 kg
[~2020-09-25 12:17] MED LIST: CIPROFLOXACIN500 M2 ORAL; FOLIC ACID1 MG ORAL; FUROSEMIDE40 MG ORAL; LACTULOSE20 GM/301 ORAL; PROTONIX40 MG ORAL; SODIUM BICARBO650 MG PO; SPIRONOLACTONE100 MG ORAL; SYNTHROID25 MCG ORAL
--- NOTE | 2020-09-25 12:39 | NUR ---
ED Nurse Note: pt walked in to er. pt states he has liver cirrhosis and having abd bloating and requests paracentesis. no fever. skin and sclera jaundice noted. vss. nad noted. ambulatory with steady gait.
[2020-09-25 12:40] VITALS: BP 117/73
[2020-09-25 13:33] LABS: HEMATOCRIT 30.7 % (42.0-52.0); HEMOGLOBIN 10.7 G/DL (14.2-18.0); MEAN CORPUSCULAR VOLUME 95 FL (80-99); PLATELET COUNT 101 K/UL (150-450); RED BLOOD COUNT 3.24 M/UL (4.70-6.10); RED CELL DISTRIBUTION WIDTH 18.8 % (11.6-14.8); WHITE BLOOD COUNT 16.8 K/UL (4.8-10.8)
[2020-09-25 13:34] LABS: ANION GAP 12 mmol/L (5-15); BLOOD UREA NITROGEN 12 mg/dL (7-18); CALCIUM 8.4 MG/DL (8.5-10.1); CARBON DIOXIDE 19 MMOL/L (21-32); CHLORIDE 98 MMOL/L (98-107); CREATININE 1.1 MG/DL (0.55-1.30); POTASSIUM 3.5 MMOL/L (3.5-5.1); SODIUM 129 MMOL/L (136-145)
[2020-09-25 13:45] LABS: ALANINE AMINOTRANSFERASE 143 U/L (12-78); ALBUMIN 1.9 G/DL (3.4-5.0); ALBUMIN/GLOBULIN RATIO 0.3 (1.0-2.7); ALKALINE PHOSPHATASE 199 U/L (46-116); ASPARTATE AMINO TRANSFERASE 233 U/L (15-37); BILIRUBIN,TOTAL 19.7 MG/DL (0.2-1.0)
[2020-09-25 13:47] LABS: BILIRUBIN,DIRECT 13.9 MG/DL (0.0-0.3)
--- NOTE | 2020-09-25 13:50 | NUR ---
ED Nurse Note: ermd at bedside.
--- NOTE | 2020-09-25 13:53 | Emergency Room Report ---
History of Present Illness General Chief Complaint: Abdominal Pain Source: Patient Present Illness HPI This patient has a history of liver failure and cirrhosis. This is secondary to alcohol abuse. Patient was discharged from [facility] 2 days ago for concern of a GI bleed. Patient states that this morning he developed diffuse abdominal pain. He states that he also feels like he is retaining fluid. The last time he had a paracentesis was a month ago. He states that he is using diuretics but this does not seem to be helping. Allergies: Coded Allergies: No Known Allergies (Unverified , 09/19/20) COVID-19 Screening Contact w/high risk pt: No Experienced COVID-19 symptoms?: No COVID-19 Testing performed MEDICAL ADVISOR: Yes COVID-19 Screening: Negative COVID-19 COVID-19 Testing Source[place] [facility] [place] Patient History Past Medical History: see triage record, other - cirrhosis, hepatitis Social History: Denies: smoking, alcohol use - Stopped ETOH 4 months ago, drug use Reviewed Nursing Documentation: PMH: Agreed; PSxH: Agreed Nursing Documentation-PMH Past Medical History: No History, Except For Hx Cardiac Problems: No Hx Cancer: No Hx Gastrointestinal Problems: Yes - cirrhosis, hepatitis Hx Neurological Problems: No Review of Systems All Other Systems: negative except mentioned in HPI Physical Exam Vital Signs Date Time Temp Pulse Resp B/P (MAP) Pulse Ox O2 Delivery O2 Flow Rate FiO2 09/25/20 12:30 98.1 114 24 117/73 (88) 98 Room Air Sp02 EP Interpretation: reviewed, normal General Appearance: no apparent distress, alert, GCS 15, non-toxic, other - icturus Head: normocephalic, atraumatic Eyes: bilateral eye PERRL, bilateral eye scleral icterus ENT: hearing grossly normal, normal pharynx, no angioedema, normal voice Neck: normal inspection, full range of motion Respiratory: chest non-tender, lungs clear, normal breath sounds, no respiratory distress, no retraction, no accessory muscle use, speaking full sentences Cardiovascular #1: no edema, tachycardia Gastrointestinal: normal bowel sounds, soft, non-distended, no guarding, no rebound, tenderness - Diffusely TTP Rectal: deferred Musculoskeletal: back normal, normal range of motion, gait/station normal, non- tender Neurologic: alert, motor strength/tone normal, oriented x3, sensory intact, responsive, speech normal Psychiatric: judgement/insight normal, memory normal, mood/affect normal, no suicidal/homicidal ideation Skin: jaundice Medical Decision Making Diagnostic Impression: Primary Impression: Liver cirrhosis, alcoholic Additional Impressions: Ascites Hyponatremia Tachycardia Leukocytosis ER Course This patient has known alcoholic liver cirrhosis and ascites. He recently had a GI bleed and was admitted. The patient presents today with ascites and abdominal pain. I am concerned that the patient has developed a leukocytosis. He could possibly have SBP. He is also profoundly hyponatremic which is likely secondary to diuretic use. He is pending paracentesis at the time of this dictation. Anticipate admission and broad-spectrum antibiotics. I am holding temporarily on the broad-spectrum antibiotics in order to obtain the paracentesis. If there is any delay in the performance of the paracentesis I will go ahead and start the antibiotics. Anticipate admission unless the paracentesis is completely clear. Overall, the patient is well-appearing and nontoxic. Final disposition per Dr. Echeverria. Laboratory Tests Test 09/25/20 13:00 White Blood Count 16.8 K/UL (4.8-10.8) H Red Blood Count 3.24 M/UL (4.70-6.10) L Hemoglobin 10.7 G/DL (14.2-18.0) L Hematocrit 30.7 % (42.0-52.0) L Mean Corpuscular Volume 95 FL (80-99) Mean Corpuscular Hemoglobin 33.0 PG (27.0-31.0) H Mean Corpuscular Hemoglobin Concent 34.8 G/DL (32.0-36.0) Red Cell Distribution Width 18.8 % (11.6-14.8) H Platelet Count 101 K/UL (150-450) L Mean Platelet Volume 7.2 FL (6.5-10.1) Neutrophils (%) (Auto) % (45.0-75.0) Lymphocytes (%) (Auto) % (20.0-45.0) Monocytes (%) (Auto) % (1.0-10.0) Eosinophils (%) (Auto) % (0.0-3.0) Basophils (%) (Auto) % (0.0-2.0) Differential Total Cells Counted 100 Neutrophils % (Manual) 89 % (45-75) H Lymphocytes % (Manual) 5 % (20-45) L Monocytes % (Manual) 6 % (1-10) Eosinophils % (Manual) 0 % (0-3) Basophils % (Manual) 0 % (0-2) Band Neutrophils 0 % (0-8) Platelet Estimate Decreased L Platelet Morphology Normal Anisocytosis 1+ Prothrombin Time 20.9 SEC (9.30-11.50) H Prothrombin Time INR 2.0 (0.9-1.1) H Activated Partial Thromboplast Time 50 SEC (23-33) H Sodium Level 129 MMOL/L (136-145) L Potassium Level 3.5 MMOL/L (3.5-5.1) Chloride Level 98 MMOL/L (98-107) Carbon Dioxide Level 19 MMOL/L (21-32) L Anion Gap 12 mmol/L (5-15) Blood Urea Nitrogen 12 mg/dL (7-18) Creatinine 1.1 MG/DL (0.55-1.30) Estimated Glomerular Filtration Rate > 60 mL/min (>60) Glucose Level 106 MG/DL (74-106) Calcium Level 8.4 MG/DL (8.5-10.1) L Total Bilirubin 19.7 MG/DL (0.2-1.0) H Direct Bilirubin 13.9 MG/DL (0.0-0.3) H Aspartate Amino Transferase (AST) 233 U/L (15-37) H Alanine Aminotransferase (ALT) 143 U/L (12-78) H Alkaline Phosphatase 199 U/L (46-116) H Total Protein 7.8 G/DL (6.4-8.2) Albumin 1.9 G/DL (3.4-5.0) L Globulin 5.9 g/dL Albumin/Globulin Ratio 0.3 (1.0-2.7) L Last Vital Signs Date Time Temp Pulse Resp B/P (MAP) Pulse Ox O2 Delivery O2 Flow Rate FiO2 09/25/20 12:40 98.1 78 24 117/73 98 Room Air Referrals: [facility],REFERRING (PCP) Lisa Jama DO Sep 25, 2020 13:53
--- NOTE | 2020-09-25 15:24 | NUR ---
ED Nurse Note: pt off floor for paracenthesis. consent signed.
--- NOTE | 2020-09-25 16:31 | NUR ---
ED Nurse Note: patient back on floor from paracenthesis. per results technician, 2.6l taken out
--- NOTE | 2020-09-25 16:38 | Pre-Procedure Note/Attestation ---
Pre-Procedure Note/Attestation Complete Prior to Procedure Planned Procedure: not applicable Procedure Narrative: US GUIDED PARACENTESIS Indications for Procedure Pre-Operative Diagnosis: ASCITES Attestation I attest that I discussed the nature of the procedure; its benefits; risks and complications; and alternatives (and the risks and benefits of such alternatives), prior to the procedure, with the patient (or the patient's legal account retention representative). I attest that, if there was a reasonable possibility of needing a blood transfusion, the patient (or the patient's legal account retention representative) was given the [facility] standardized written summary, pursuant to the Edgar Edwardo Blood Safety Act ([place] Health and Safety Code # 1645, as amended). I attest that I re-evaluated the patient just prior to the surgery and that there has been no change in the patient's H&P, except as documented below: Daniel John MD Sep 25, 2020 16:38
--- NOTE | 2020-09-25 16:39 | Brief Operative Note ---
Immediate Post Operative Note Operative Note Chief Complaint: ASCITES Pre-op Diagnosis: ASCITES Procedure: us guided paracentesis Post-op Diagnosis: ASCITES Post-op Diagnosis: same as pre-op Findings: consistent w/pre-op dx studies Surgeon: DANIEL RAINEY MD, MA Anesthesia: local Specimen: none Complications: none Condition: stable Fluids: 0 Estimated Blood Loss: none Implant(s) used?: No Daniel Rainey MD Sep 25, 2020 16:39
--- NOTE | 2020-09-25 17:41 | Diagnostic Imaging Report ---
Indications: Ascites Technique: Ultrasound used to localize optimal puncture site. Sterile prepping and draping including sterile ultrasound gel and probe cover. Local anesthesia with 1% lidocaine. Under real-time ultrasound guidance, the peritoneal space was punctured using a 5 [employer] [employer] catheter. Stylet removed. Catheter placed to vacuum bottle suction. Total 2.6 liters of fluid aspirated. Patient tolerated procedure well, without immediate complication. Findings: Followup sonography demonstrates near complete resolution of ascites with trace residual ascites. Impression: Successful ultrasound-guided paracentesis, yielding 2.6 liters of fluid
[2020-09-25] MEDS ORDERED: cefTRIAXone 1 GM in NS 55 ML IVPB ONE (18:30)
--- NOTE | 2020-09-25 18:45 | NUR ---
ED Nurse Note: attempted to call report but was told to call back after 7pm. will endorse to next shift RN.
--- NOTE | 2020-09-25 19:02 | NUR ---
ED Nurse Note: gave report to abiodun kaplan.
--- NOTE | 2020-09-25 19:02 | NUR ---
ED Nurse Note: pt admitted to med surg floor for possible sbp. pt transferred via ahmet, carmel berkowitz, vss, a/ox4, with all belongings
--- NOTE | 2020-09-25 19:40 | NUR ---
NURSE NOTES: Received report from ER nurse evelin RN at 1910. Patient is transported via gurney. Alert and oriented x4 with no distress noted. Breathing is even and unlabored in room air. Patient states 5/10 pain on abdomen. IV left AC intact and patent with no bleeding noted. Checked belongings list with the patient. Skin intact. Admission order received from . Patient remains NPO. Medication reconciliation reviewed with patient. MRSA, VRE, CRE swabs done. Bed low and locked. Call light within reach.
[2020-09-25 20:00] VITALS: BP 105/59
[2020-09-25] MEDS ORDERED: D5 1/2NS 1,000 ML IV SCH (21:45)
--- NOTE | 2020-09-25 23:45 | NUR ---
NURSE NOTES: MRSA, VRE & CRE swabs sent down to lab.
[2020-09-26] VITALS: BP 96/54
[2020-09-26 04:00] VITALS: BP 92/56
[2020-09-26 05:40] LABS: HEMATOCRIT 22.1 % (42.0-52.0); HEMOGLOBIN 8.3 G/DL (14.2-18.0); MEAN CORPUSCULAR VOLUME 89 FL (80-99); PLATELET COUNT 69 K/UL (150-450); RED BLOOD COUNT 2.48 M/UL (4.70-6.10); RED CELL DISTRIBUTION WIDTH 19.9 % (11.6-14.8); WHITE BLOOD COUNT 9.8 K/UL (4.8-10.8)
[2020-09-26] MEDS: Levothyroxine 25mcg tab ORAL SCH (06:01)
[2020-09-26 06:37] LABS: ANION GAP 7 mmol/L (5-15); BLOOD UREA NITROGEN 14 mg/dL (7-18); CALCIUM 7.8 MG/DL (8.5-10.1); CARBON DIOXIDE 22 MMOL/L (21-32); CHLORIDE 99 MMOL/L (98-107); POTASSIUM 3.7 MMOL/L (3.5-5.1); SODIUM 128 MMOL/L (136-145)
--- NOTE | 2020-09-26 06:45 | NUR ---
NURSE HAND-OFF: Important Events on Shift: NPO, IVF Patient Status: Stable Diet: NPO Pending Orders: N/A Pending Results/Labs:N/A Pending MD notification:N/A Latest Vital Signs: Temperature 97.9 , Pulse 82 , B/P 92 /56 , Respiratory Rate 18 , O2 SAT 98 , Room Air, O2 Flow Rate . Vital Sign Comment: VS stable Latest Julian Fall Score: 60 Fall Risk: High Risk Safety Measures: Call light Within Reach, Bed Alarm , Side Rails Side Rails x2, Bed position Low and Locked. Fall Precautions: Patient Fall Education Report will be given to Raisa FIGUEROA. Addendum: 09/26/20 at 0734 by Brandon Jaquez RN Report given to Kathe FIGUEROA.
[2020-09-26 08:00] VITALS: BP 87/56
--- NOTE | 2020-09-26 08:00 | NUR ---
NURSE NOTES: RECIEVED PT .AWAKE AND ALERT NO S/S OF DISTRESS NOTED .ATE BREAKFAST 100% NO C/O NAUSEA AND VOMITING.WILL CONTINUE W/ POC.
--- NOTE | 2020-09-26 08:54 | Consultation ---
History of Present Illness General Date patient seen: Sep 26, 2020 Time patient seen: 13:14 Chief Complaint: Abdominal Pain Referring physician: Dr. Coy Reason for Consultation: R/o SBP Present Illness HPI 35yo M who was recently admitted for r/o SBP, now p/w worsening abd distension and pain. ID c/s given r/o SBP. Pt has been AF in house, initial leukocytosis to 16 now rapidly improved to 9 s/p 2.6L paracentesis. Pt reports he came in because of abd distension, no fevers/chills, NVD, resp complaints. Now that he is s/p paracentesis he feels much better. Takes cipro daily at home for SBP ppx. Allergies: Coded Allergies: No Known Allergies (Unverified , 09/19/20) Medication History Scheduled Ciprofloxacin Hcl* (Ciprofloxacin Hcl*), 500 MG ORAL DAILY, (Reported) Folic Acid* (Folic Acid*), 1 MG ORAL DAILY, (Reported) Furosemide* (Lasix*), 40 MG ORAL DAILY, (Reported) Levothyroxine Sodium* (Synthroid*), 25 MCG ORAL DAILY, (Reported) Pantoprazole* (Protonix*), 40 MG ORAL DAILY, (Reported) Sodium Bicarbonate* (Nahco3*), 600 MG PO BID, (Reported) Spironolactone* (Spironolactone*), 50 MG ORAL DAILY, (Reported) Miscellaneous Medications Lactulose (Lactulose*), 30 ML ORAL, (Reported) Patient History Healthcare decision maker Resuscitation status Advanced Directive on File Review of Systems ROS Narrative 10-point ROS neg except as noted in HPI Physical Exam Physical Exam Narrative Gen: NAD HEENT: NCAT Pulm: BL chest rise on RA Abd: Minimally distended, soft, NTND Ext: No c/c/e Skin: No visible rashes Neuro: Awake Last 24 Hour Vital Signs Date Time Temp Pulse Resp B/P (MAP) Pulse Ox O2 Delivery O2 Flow Rate FiO2 09/26/20 08:00 98.1 90 18 87/56 (66) 98 09/26/20 04:00 97.9 82 18 92/56 (68) 98 09/26/20 00:00 99.7 86 18 96/54 (68) 96 09/25/20 23:15 Room Air 09/25/20 20:00 99.8 109 18 105/59 (74) 98 09/25/20 19:25 98.3 70 18 128/64 100 Room Air 09/25/20 12:40 98.1 78 24 117/73 98 Room Air 09/25/20 12:40 114 24 Room Air 09/25/20 12:30 98.1 114 24 117/73 (88) 98 Room Air Intake and Output 09/25/20 09/26/20 19:00 07:00 Intake Total 450 ml Balance 450 ml Intake Oral 30 ml IV Total 420 ml # Voids 1 # Bowel Movements 2 Laboratory Tests Test 09/25/20 13:00 09/25/20 15:35 09/26/20 05:00 White Blood Count 16.8 K/UL (4.8-10.8) H 9.8 K/UL (4.8-10.8) Red Blood Count 3.24 M/UL (4.70-6.10) L 2.48 M/UL (4.70-6.10) L Hemoglobin 10.7 G/DL (14.2-18.0) L 8.3 G/DL (14.2-18.0) L Hematocrit 30.7 % (42.0-52.0) L 22.1 % (42.0-52.0) L Mean Corpuscular Volume 95 FL (80-99) 89 FL (80-99) Mean Corpuscular Hemoglobin 33.0 PG (27.0-31.0) H 33.7 PG (27.0-31.0) H Mean Corpuscular Hemoglobin Concent 34.8 G/DL (32.0-36.0) 37.8 G/DL (32.0-36.0) H Red Cell Distribution Width 18.8 % (11.6-14.8) H 19.9 % (11.6-14.8) H Platelet Count 101 K/UL (150-450) L 69 K/UL (150-450) L Mean Platelet Volume 7.2 FL (6.5-10.1) 7.7 FL (6.5-10.1) Neutrophils (%) (Auto) % (45.0-75.0) % (45.0-75.0) Lymphocytes (%) (Auto) % (20.0-45.0) % (20.0-45.0) Monocytes (%) (Auto) % (1.0-10.0) % (1.0-10.0) Eosinophils (%) (Auto) % (0.0-3.0) % (0.0-3.0) Basophils (%) (Auto) % (0.0-2.0) % (0.0-2.0) Differential Total Cells Counted 100 Neutrophils % (Manual) 89 % (45-75) H Pending Lymphocytes % (Manual) 5 % (20-45) L Pending Monocytes % (Manual) 6 % (1-10) Eosinophils % (Manual) 0 % (0-3) Basophils % (Manual) 0 % (0-2) Band Neutrophils 0 % (0-8) Platelet Estimate Decreased L Pending Platelet Morphology Normal Pending Anisocytosis 1+ Prothrombin Time 20.9 SEC (9.30-11.50) H Prothromb Time International Ratio 2.0 (0.9-1.1) H Activated Partial Thromboplast Time 50 SEC (23-33) H Sodium Level 129 MMOL/L (136-145) L 128 MMOL/L (136-145) L Potassium Level 3.5 MMOL/L (3.5-5.1) 3.7 MMOL/L (3.5-5.1) Chloride Level 98 MMOL/L (98-107) 99 MMOL/L (98-107) Carbon Dioxide Level 19 MMOL/L (21-32) L 22 MMOL/L (21-32) Anion Gap 12 mmol/L (5-15) 7 mmol/L (5-15) Blood Urea Nitrogen 12 mg/dL (7-18) 14 mg/dL (7-18) Creatinine 1.1 MG/DL (0.55-1.30) 1.0 MG/DL (0.55-1.30) Estimat Glomerular Filtration Rate > 60 mL/min (>60) > 60 mL/min (>60) Glucose Level 106 MG/DL (74-106) 97 MG/DL (74-106) Calcium Level 8.4 MG/DL (8.5-10.1) L 7.8 MG/DL (8.5-10.1) L Total Bilirubin 19.7 MG/DL (0.2-1.0) H Direct Bilirubin 13.9 MG/DL (0.0-0.3) H Aspartate Amino Transf (AST/SGOT) 233 U/L (15-37) H Alanine Aminotransferase (ALT/SGPT) 143 U/L (12-78) H Alkaline Phosphatase 199 U/L (46-116) H Total Protein 7.8 G/DL (6.4-8.2) Albumin 1.9 G/DL (3.4-5.0) L Globulin 5.9 g/dL Albumin/Globulin Ratio 0.3 (1.0-2.7) L Body Fluid Source Paracentesis Body Fluid Volume 24 mL Body Fluid Appearance Yellow,clear (Clear) Body Fluid RBC 190 /CUMM Body Fluid Total Nucleated Cells 0 /CUMM Body Fluid Polynuclear WBCs (%) % Body Fluid Mononuclear WBCs (%) % Body Fluid Mesothelial Cells (%) % Body Fluid Comment Microbiology Date/Time Source Procedure Growth Status 09/25/20 23:45 Rectum Received Height (Feet): 5 Height (Inches): 9.00 Weight (Pounds): 161 Medications Current Medications Medications (Trade) Dose Ordered Sig/Santino Route PRN Reason Start Time Stop Time Status Last Admin Dose Admin Ciprofloxacin (Cipro 500mg tab) 500 mg DAILY ORAL 09/26/20 09:00 10/03/20 08:59 Dextrose/Sodium Chloride 1,000 ml @ 60 mls/hr [id number] IV 09/25/20 21:45 10/25/20 21:44 09/25/20 22:56 Folic Acid (Folate) 1 mg DAILY ORAL 09/26/20 09:00 10/26/20 08:59 Furosemide (Lasix) 40 mg DAILY ORAL 09/26/20 09:00 10/26/20 08:59 Heparin Sodium (Porcine) (Heparin 5000 units/ml) 5,000 units EVERY 12 HOURS SUBQ 09/26/20 09:00 11/10/20 08:59 Lactulose (Cephulac) 20 gm DAILY ORAL 09/26/20 09:00 10/26/20 08:59 Levothyroxine Sodium (Synthroid) 25 mcg BEFORE BREAKFAST ORAL 09/26/20 06:30 10/26/20 06:29 09/26/20 06:01 Morphine Sulfate (Morphine Sulfate) 2 mg Q4H PRN IVP For Pain 09/25/20 21:45 10/02/20 21:44 Ondansetron HCl (Zofran) 4 mg Q4H PRN IVP Nausea & Vomiting 09/25/20 21:45 10/25/20 21:44 Pantoprazole (Protonix) 40 mg DAILY ORAL 09/26/20 09:00 10/26/20 08:59 Sodium Bicarbonate (NaHCO3) 650 mg BID ORAL 09/26/20 09:00 10/26/20 08:59 Spironolactone (Aldactone) 50 mg DAILY ORAL 09/26/20 09:00 10/26/20 08:59 Assessment/Plan Assessment/Plan: 35yo M with: Afebrile Leukocytosis, SP - likely reactive Abd pain and distension, s/p 2.6 L paracentesis 09/25 R/o SBP 09/19 BCx neg, UCx neg 09/25 Ascites fluid - 190 RBC, zero WBC --> unlikely infected COVID screen 09/19 CXR neg 09/20 Rapid COVID neg UGIB 2ry to ulcer 09/20 EGD: 1. Status post successful Hemoclip-assistance hemostasis of ulcer at the GE junction. Portal hypertensive gastropathy. No obvious esophageal or gastric varices. EtOH and Hep C cirrhosis (on transplant list) Plan: Cont cipro 500mg PO daily for SBP ppx OK to d/c from ID standpoint, s/p paracentesis, low s/f SBP given cell count Rapid COVID screening test as inpatient, if unable to perform then COVID PCR Monitor CBC/CMP Monitor temp curve, hemodynamics Monitor resp status D/w RN Thank you for this consult. [facility] will continue to follow. Lissette Au M.D. Sep 26, 2020 08:54
[2020-09-26] MEDS ORDERED: Sodium Bicarbonate 650mg Tab ORAL SCH (09:00)
[2020-09-26] MEDS ORDERED: Heparin 5000 units/ml inj SUBQ SCH (09:00)
[2020-09-26] MEDS ORDERED: Furosemide 40mg tab ORAL SCH (09:00)
--- NOTE | 2020-09-26 09:02 | General Progress Note ---
Subjective ROS Limited/Unobtainable: Yes Allergies: Coded Allergies: No Known Allergies (Unverified , 09/19/20) Objective Last 24 Hour Vital Signs Date Time Temp Pulse Resp B/P (MAP) Pulse Ox O2 Delivery O2 Flow Rate FiO2 09/26/20 08:00 98.1 90 18 87/56 (66) 98 09/26/20 04:00 97.9 82 18 92/56 (68) 98 09/26/20 00:00 99.7 86 18 96/54 (68) 96 09/25/20 23:15 Room Air 09/25/20 20:00 99.8 109 18 105/59 (74) 98 09/25/20 19:25 98.3 70 18 128/64 100 Room Air 09/25/20 12:40 98.1 78 24 117/73 98 Room Air 09/25/20 12:40 114 24 Room Air 09/25/20 12:30 98.1 114 24 117/73 (88) 98 Room Air Intake and Output 09/25/20 09/26/20 19:00 07:00 Intake Total 450 ml Balance 450 ml Intake Oral 30 ml IV Total 420 ml # Voids 1 # Bowel Movements 2 Laboratory Tests 09/25/20 13:00: White Blood Count 16.8H, Red Blood Count 3.24L, Hemoglobin 10.7L, Hematocrit 30.7L, Mean Corpuscular Volume 95, Mean Corpuscular Hemoglobin 33.0H, Mean Corpuscular Hemoglobin Concent 34.8, Red Cell Distribution Width 18.8H, Platelet Count 101L, Mean Platelet Volume 7.2, Neutrophils (%) (Auto) , Lymphocytes (%) (Auto) , Monocytes (%) (Auto) , Eosinophils (%) (Auto) , Basophils (%) (Auto) , Differential Total Cells Counted 100, Neutrophils % (Manual) 89H, Lymphocytes % (Manual) 5L, Monocytes % (Manual) 6, Eosinophils % (Manual) 0, Basophils % (Manual) 0, Band Neutrophils 0, Platelet Estimate DecreasedL, Platelet Morphology Normal, Anisocytosis 1+, Prothrombin Time 20.9H, Prothromb Time International Ratio 2.0H, Activated Partial Thromboplast Time 50H, Sodium Level 129L, Potassium Level 3.5, Chloride Level 98, Carbon Dioxide Level 19L, Anion Gap 12, Blood Urea Nitrogen 12, Creatinine 1.1, Estimat Glomerular Filtration Rate > 60, Glucose Level 106, Calcium Level 8.4L, Total Bilirubin 19.7H, Direct Bilirubin 13.9H, Aspartate Amino Transf (AST/SGOT) 233H, Alanine Aminotransferase (ALT/SGPT) 143H, Alkaline Phosphatase 199H, Total Protein 7.8, Albumin 1.9L, Globulin 5.9, Albumin/Globulin Ratio 0.3L 09/25/20 15:35: Body Fluid Source Paracentesis, Body Fluid Volume 24, Body Fluid Appearance Yellow,clear, Body Fluid RBC 190, Body Fluid Total Nucleated Cells 0, Body Fluid Polynuclear WBCs (%) , Body Fluid Mononuclear WBCs (%) , Body Fluid Mesothelial Cells (%) , Body Fluid Comment 09/26/20 05:00: White Blood Count 9.8, Red Blood Count 2.48L, Hemoglobin 8.3L, Hematocrit 22.1L, Mean Corpuscular Volume 89, Mean Corpuscular Hemoglobin 33.7H, Mean Corpuscular Hemoglobin Concent 37.8H, Red Cell Distribution Width 19.9H, Platelet Count 69L, Mean Platelet Volume 7.7, Neutrophils (%) (Auto) , Lymphocytes (%) (Auto) , Monocytes (%) (Auto) , Eosinophils (%) (Auto) , Basophils (%) (Auto) , Neutrophils % (Manual) [Pending], Lymphocytes % (Manual) [Pending], Platelet Estimate [Pending], Platelet Morphology [Pending], Sodium Level 128L, Potassium Level 3.7, Chloride Level 99, Carbon Dioxide Level 22, Anion Gap 7, Blood Urea Nitrogen 14, Creatinine 1.0, Estimat Glomerular Filtration Rate > 60, Glucose Level 97, Calcium Level 7.8L Height (Feet): 5 Height (Inches): 9.00 Weight (Pounds): 161 General Appearance: no apparent distress EENT: normal ENT inspection Neck: supple Cardiovascular: normal rate Respiratory/Chest: decreased breath sounds Abdomen: normal bowel sounds, non tender, soft Extremities: non-tender Assessment/Plan Problem List: (1) Hepatitis C ICD Codes: B19.20 - Unspecified viral hepatitis C without hepatic coma SNOMED: 13821562 (2) Alcoholic liver disease ICD Codes: K70.9 - Alcoholic liver disease, unspecified SNOMED: 20546642 (3) Anemia ICD Codes: D64.9 - Anemia, unspecified SNOMED: 040386079 (4) Liver cirrhosis, alcoholic ICD Codes: K70.30 - Alcoholic cirrhosis of liver without ascites SNOMED: 045819803 (5) Ascites ICD Codes: R18.8 - Other ascites SNOMED: 372454228 (6) GI bleed ICD Codes: K92.2 - Gastrointestinal hemorrhage, unspecified SNOMED: 29639359 (7) Hyponatremia ICD Codes: E87.1 - Hypo-osmolality and hyponatremia SNOMED: 61202152 Assessment/Plan: s/p recent EGD VIT K repeat labs lasix 20 mg and aldactone 50 mg>> will increase as tolerated s/p paracentesis 2 gm sodium diet Arpit Reyez MD Sep 26, 2020 09:02
[2020-09-26] MEDS: Lactulose 20gm/30ml UDC ORAL SCH (09:52)
[2020-09-26] MEDS: Spironolactone 50mg tab ORAL SCH (09:52)
[2020-09-26] MEDS: Ciprofloxacin 500mg tab ORAL SCH (09:53)
[2020-09-26] MEDS ORDERED: Phytonadione 1 MG in D5W 55 ML IVPB ONE (10:30)
[2020-09-26 12:00] VITALS: BP 95/57
--- NOTE | 2020-09-26 12:17 | NUR ---
CASE MANAGEMENT:INITIAL REVIEW 35 YR OLD MALE FROM HOME CC;ABDOMINAL PAIN PMHx;LIVER CIRRHOSIS SI;ASCITES~S/P PARACENTESIS = 2.6 L ASPIRATED. HYPONATREMIA. POSSIBLE BOWEL OBSTRUCTION. 99.8 114 105/59 96% ON RA WBC 16.8 PLT 101 NA 129 CA 8.4 T-BILI 19.7 D0BILI 13.9 AST 233 ALT 143 ALP 199 ALB 1.9 PT 20.9 INR 2.0 APTT 50 IS;ROCEPHIN IV ADMITTED TO MED SURG MED SURG STATUS DCP;PATIENT IS FROM HOME
--- NOTE | 2020-09-26 13:00 | Consultation ---
Consult Note Consult Note I am asked to evaluate the patient at the request of for electrolyte abnormalities and renal failure Patient known to me from his previous admission. Was recently discharged from [facility]. Conditions: (1) Hyponatremia (2) Hepatitis C (3) Alcoholic liver disease (4) Liver cirrhosis, alcoholic (5) GI bleed (6) Sepsis (7) GLENN (acute kidney injury) ER Note: This patient has a history of liver failure and cirrhosis. This is secondary to alcohol abuse. Patient was discharged from [facility] 2 days ago for concern of a GI bleed. Patient states that this morning he developed diffuse abdominal pain. He states that he also feels like he is retaining fluid. The last time he had a paracentesis was a month ago. He states that he is using diuretics but this does not seem to be helping. Allergies: No Known Allergies (Unverified , 09/19/20) COVID-19 Screening Contact w/high risk pt: No Experienced COVID-19 symptoms?: No COVID-19 Testing performed LINOLEUM INSTALLER: Yes COVID-19 Screening: Negative COVID-19 COVID-19 [place] [facility] [place] Medical History: see triage record, other - cirrhosis, hepatitis Social History: Denies: smoking, alcohol use - Stopped ETOH 4 months ago, drug use Reviewed Nursing Documentation: PMH: Agreed; PSxH: Agreed Past Medical History: No History, Except For Hx Gastrointestinal Problems: Yes - cirrhosis, hepatitis Vital Signs Date Time Temp Pulse Resp B/P (MAP) Pulse Ox O2 Delivery O2 Flow Rate FiO2 09/25/20 12:30 98.1 114 24 117/73 (88) 98 Room Air Physical Exam General Appearance: no apparent distress EENT: normal ENT inspection Neck: supple Cardiovascular: normal rate Respiratory/Chest: decreased breath sounds Abdomen: normal bowel sounds, non tender, soft Extremities: non-tender . Assessment/Plan Hyponatremia Liver cirrhosis, alcoholic, hep C Ascites Tachycardia Leukocytosis, sepsis History of GI bleed and anemia Hydrate, isotonic solution Monitor electrolytes Protonix Monitor hemoglobin and hematocrit Per GI Per consultants Per orders Santo Pruitt MD Sep 26, 2020 13:00
--- NOTE | 2020-09-26 14:34 | Consultation ---
History of Present Illness General Date patient seen: Sep 26, 2020 Reason for Hospitalization: Abdominal Pain Present Illness HPI This is a very pleasant 35-year-old male with history of liver failure and cirrhosis secondary to alcohol abuse. Patient was discharged from [facility] 2 days ago for concern of a GI bleed. Patient states that this morning he developed diffuse abdominal pain. He states that he also feels like he is retaining fluid. The last time he had a paracentesis was a month ago. He states that he is using diuretics but this does not seem to be helping. Given abdominal pain surgery called to eval assist with care. Patient seen, [facility] [place], chart reviewed. No nausea vomiting fever chills. Passing flatus having bowel movements tolerating diet Allergies: Coded Allergies: No Known Allergies (Unverified , 09/19/20) COVID-19 Screening Contact w/high risk pt: No Experienced COVID-19 symptoms?: No Medication History Scheduled Ciprofloxacin Hcl* (Ciprofloxacin Hcl*), 500 MG ORAL DAILY, (Reported) Folic Acid* (Folic Acid*), 1 MG ORAL DAILY, (Reported) Furosemide* (Lasix*), 40 MG ORAL DAILY, (Reported) Levothyroxine Sodium* (Synthroid*), 25 MCG ORAL DAILY, (Reported) Pantoprazole* (Protonix*), 40 MG ORAL DAILY, (Reported) Sodium Bicarbonate* (Nahco3*), 600 MG PO BID, (Reported) Spironolactone* (Spironolactone*), 50 MG ORAL DAILY, (Reported) Miscellaneous Medications Lactulose (Lactulose*), 30 ML ORAL, (Reported) Patient History History Provided By: Patient, Medical Record, PMD Healthcare decision maker Resuscitation status Advanced Directive on File Past Medical/Surgical History Past Medical/Surgical History: (1) GLENN (acute kidney injury) (2) Ascites (3) Tachycardia (4) Hyponatremia (5) Leukocytosis (6) Liver cirrhosis, alcoholic (7) Sepsis (8) Anemia (9) Alcoholic liver disease (10) Hepatitis C (11) GI bleed Review of Systems Review of Symptoms General ROS: no weight loss or fever Psychological ROS: no depression or mood changes, no memory loss Ophthalmic ROS: no visual changes or eye irritation ENT ROS: no nasal congestion, hearing loss, dizziness Allergy and Immunology ROS: no allergic symptoms or urticaria Hematological and Lymphatic ROS: no swollen glands, unusual bleeding or bruising Endocrine ROS: no polyuria, polydipsia, weight changes, temperature intolerance Respiratory ROS: no cough, shortness of breath, or wheezing Cardiovascular ROS: no chest pain or dyspnea on exertion Gastrointestinal ROS: denies abdominal pain, bright red blood in stool. Musculoskeletal ROS: no myalgias or arthralgias Neurological ROS: no TIA or stroke symptoms Dermatological ROS: no new or changing skin lesions, rashes or pruritis Physical Exam Physical Exam General appearance: alert, cooperative, no distress, appears stated age Head: Normocephalic, without obvious abnormality, atraumatic Eyes: conjunctivae/corneas clear. PERRL, EOM's intact. Fundi benign Throat: Lips, mucosa, and tongue normal. Teeth and gums normal Neck: supple, symmetrical, trachea midline, no adenopathy, thyroid: not enlarged, symmetric, no tenderness/mass/nodules, no carotid bruit and no JVD Lungs: clear to auscultation bilaterally Heart: regular rate and rhythm, S1, S2 normal, no murmur, click, rub or gallop Abdomen: soft, non-tender. Bowel sounds normal. No masses, no organomegaly Extremities: extremities normal, atraumatic, no cyanosis or edema Pulses: 2+ and symmetric Skin: Skin color, texture, turgor normal. No rashes or lesions Neurologic: Grossly normal Last 24 Hour Vital Signs Date Time Temp Pulse Resp B/P (MAP) Pulse Ox O2 Delivery O2 Flow Rate FiO2 09/26/20 12:00 98.8 85 16 95/57 (70) 97 09/26/20 08:00 98.1 90 18 87/56 (66) 98 09/26/20 04:00 97.9 82 18 92/56 (68) 98 09/26/20 00:00 99.7 86 18 96/54 (68) 96 09/25/20 23:15 Room Air 09/25/20 20:00 99.8 109 18 105/59 (74) 98 09/25/20 19:25 98.3 70 18 128/64 100 Room Air Intake and Output 09/25/20 09/26/20 19:00 07:00 Intake Total 450 ml Balance 450 ml Intake Oral 30 ml IV Total 420 ml # Voids 1 # Bowel Movements 2 Laboratory Tests Test 09/25/20 15:35 09/26/20 05:00 Body Fluid Source Paracentesis Body Fluid Volume 24 mL Body Fluid Appearance Yellow,clear (Clear) Body Fluid RBC 190 /CUMM Body Fluid Total Nucleated Cells 0 /CUMM Body Fluid Polynuclear WBCs (%) % Body Fluid Mononuclear WBCs (%) % Body Fluid Mesothelial Cells (%) % Body Fluid Comment White Blood Count 9.8 K/UL (4.8-10.8) Red Blood Count 2.48 M/UL (4.70-6.10) L Hemoglobin 8.3 G/DL (14.2-18.0) L Hematocrit 22.1 % (42.0-52.0) L Mean Corpuscular Volume 89 FL (80-99) Mean Corpuscular Hemoglobin 33.7 PG (27.0-31.0) H Mean Corpuscular Hemoglobin Concent 37.8 G/DL (32.0-36.0) H Red Cell Distribution Width 19.9 % (11.6-14.8) H Platelet Count 69 K/UL (150-450) L Mean Platelet Volume 7.7 FL (6.5-10.1) Neutrophils (%) (Auto) % (45.0-75.0) Lymphocytes (%) (Auto) % (20.0-45.0) Monocytes (%) (Auto) % (1.0-10.0) Eosinophils (%) (Auto) % (0.0-3.0) Basophils (%) (Auto) % (0.0-2.0) Neutrophils % (Manual) 78 % (45-75) H Lymphocytes % (Manual) 14 % (20-45) L Monocytes % (Manual) 7 % (1-10) Eosinophils % (Manual) 1 % (0-3) Basophils % (Manual) 0 % (0-2) Band Neutrophils 0 % (0-8) Platelet Estimate Decreased L Platelet Morphology Normal Hypochromasia 1+ Anisocytosis 1+ Sodium Level 128 MMOL/L (136-145) L Potassium Level 3.7 MMOL/L (3.5-5.1) Chloride Level 99 MMOL/L (98-107) Carbon Dioxide Level 22 MMOL/L (21-32) Anion Gap 7 mmol/L (5-15) Blood Urea Nitrogen 14 mg/dL (7-18) Creatinine 1.0 MG/DL (0.55-1.30) Estimat Glomerular Filtration Rate > 60 mL/min (>60) Glucose Level 97 MG/DL (74-106) Calcium Level 7.8 MG/DL (8.5-10.1) L Microbiology Date/Time Source Procedure Growth Status 09/25/20 23:45 Rectum Received Height (Feet): 5 Height (Inches): 9.00 Weight (Pounds): 161 Medications Current Medications Medications (Trade) Dose Ordered Sig/Santino Route PRN Reason Start Time Stop Time Status Last Admin Dose Admin Ciprofloxacin (Cipro 500mg tab) 500 mg DAILY ORAL 09/26/20 09:00 10/03/20 08:59 09/26/20 09:53 Folic Acid (Folate) 1 mg DAILY ORAL 09/26/20 09:00 10/26/20 08:59 09/26/20 09:52 Furosemide (Lasix) 20 mg DAILY IV 09/26/20 09:15 10/26/20 09:14 Lactulose (Cephulac) 20 gm DAILY ORAL 09/26/20 09:00 10/26/20 08:59 09/26/20 09:52 Levothyroxine Sodium (Synthroid) 25 mcg BEFORE BREAKFAST ORAL 09/26/20 06:30 10/26/20 06:29 09/26/20 06:01 Morphine Sulfate (Morphine Sulfate) 2 mg Q4H PRN IVP For Pain 09/25/20 21:45 10/02/20 21:44 Ondansetron HCl (Zofran) 4 mg Q4H PRN IVP Nausea & Vomiting 09/25/20 21:45 10/25/20 21:44 Pantoprazole (Protonix) 40 mg BID ORAL 09/26/20 18:00 10/26/20 08:59 Sodium Chloride 500 ml @ 30 mls/hr ONCE ONCE IV 09/26/20 15:00 09/27/20 07:39 Spironolactone (Aldactone) 50 mg DAILY ORAL 09/26/20 09:00 10/26/20 08:59 09/26/20 09:52 Assessment/Plan Problem List: (1) Ascites ICD Codes: R18.8 - Other ascites SNOMED: 525136337 (2) Tachycardia ICD Codes: R00.0 - Tachycardia, unspecified SNOMED: 2369633 (3) Hyponatremia ICD Codes: E87.1 - Hypo-osmolality and hyponatremia SNOMED: 33936887 (4) Leukocytosis ICD Codes: D72.829 - Elevated white blood cell count, unspecified SNOMED: 660277993, 721851461 (5) Liver cirrhosis, alcoholic ICD Codes: K70.30 - Alcoholic cirrhosis of liver without ascites SNOMED: 509107087 (6) Anemia ICD Codes: D64.9 - Anemia, unspecified SNOMED: 836366250 (7) Alcoholic liver disease ICD Codes: K70.9 - Alcoholic liver disease, unspecified SNOMED: 87962062 (8) Hepatitis C ICD Codes: B19.20 - Unspecified viral hepatitis C without hepatic coma SNOMED: 89736637 (9) GI bleed ICD Codes: K92.2 - Gastrointestinal hemorrhage, unspecified SNOMED: 85632122 (10) Sepsis ICD Codes: A41.9 - Sepsis, unspecified organism SNOMED: 32294545, 089822122 (11) GLENN (acute kidney injury) ICD Codes: N17.9 - Acute kidney failure, unspecified SNOMED: 3922969, 09559271 (12) Abdominal pain Assessment & Plan: This is a very pleasant 35-year-old male complaining of abdominal pain liver cirrhosis significantly cirrhotic with icterus jaundice. Patient states diffuse abdominal pain since discharge. Had a paracentesis today and feels significantly better. Nominal exam is fairly benign. Leukocytosis resolved. Unlikely spontaneous bacterial peritonitis. Nominal pain likely from fluid retention. Now the paracentesis feels better. Patient is fluid sent for microbiology follow-up. Antibiotics per infectious disease. No acute surgical intervention planned. Okay for diet. Activity as tolerated. Follow with recommendations trend labs thank you for your participate patient's care GI input appreciated ICD Codes: R10.9 - Unspecified abdominal pain SNOMED: 37659942 Homer Delgado Sep 26, 2020 14:34
[2020-09-26] MEDS ORDERED: NaCl 3% 500ml 500 ML IV ONE (15:00)
[2020-09-26 16:00] VITALS: BP 99/57
--- NOTE | 2020-09-26 17:52 | NUR ---
INSURANCE CLINICALS/REVIEW FAXED TO [facility] P:[phone] F:[phone]
--- NOTE | 2020-09-26 19:15 | NUR ---
HAND-OFF: Report given to ALEX/COTY FIGUEROA.
--- NOTE | 2020-09-26 19:45 | NUR ---
NURSE NOTES: Received report from Kathe RN. Patient is awake, alert, and oriented x4. On room air, breathing is even and unlabored. No c/o pain. Patient has N/V and zofran was given. IV on left AC intact and patent with no bleeding noted. IVF running as ordered. Bed low and locked. Call light within reach.
[2020-09-26 20:00] VITALS: BP 99/67
--- NOTE | 2020-09-26 20:00 | History and Physical Report ---
DATE OF ADMISSION: 09/25/2020 DATE AND TIME SEEN: 09/26/2020 at 1 p.m. CONSULTANTS: 1. Arpit Reyez MD. 2. Sahil Beltran MD. 3. Homer Delgado MD. 4. Santo Pruitt MD. CHIEF COMPLAINT: Abdominal pain, rule out small bowel obstruction. BRIEF HISTORY: This is a 35-year-old male, who lives at home, presented with 2-day increased abdominal pain, slightly nausea, came to [place], diagnosed with abdominal pain, rule out small bowel obstruction and leukocytosis. Currently, calm in bed, slight abdominal pain. No complaint. REVIEW OF SYSTEMS: No chest pain. No shortness of breath. Slight nausea. No vomiting or diarrhea. PAST MEDICAL HISTORY: Includes liver disease. PAST SURGICAL HISTORY: None. ALLERGIES: Denies. MEDICATIONS: Include Protonix, Lasix, spironolactone, lactulose, Cipro, folic acid, levothyroxine, Zofran, morphine. SOCIAL HISTORY: No smoking. No alcohol. No intravenous drug abuse. FAMILY HISTORY: Noncontributory. PHYSICAL EXAMINATION: GENERAL: Calm in bed, oriented x2, in no acute distress. VITAL SIGNS: Temperature 98 degrees, pulse 85, respirations 16, blood pressure 95/57. CARDIOVASCULAR: No murmur. LUNGS: Poor air exchange. ABDOMEN: Bowel sounds distant. EXTREMITIES: No cyanosis, clubbing, or edema. NEUROLOGIC: Patient moves all extremities, slightly weak. LABORATORY AND DIAGNOSTIC DATA: Labs at this time show initial white count 16, now is 9.8, hemoglobin and hematocrit 10/39, now 8.3/22, and platelets are 69. INR is 2.0, PTT is 50. BMP shows sodium 128. AST 233, ALT 143, alkaline phosphatase 199. Albumin 1.9. ASSESSMENT: 1. Abdominal pain, rule out . 2. History of liver disease. 3. Hyponatremia. PLAN: 1. Antibiotic per Infectious Disease. 2. Dietary followup. 3. We will add Hematology and Pulmonary evaluation. 4. We will continue to follow this patient. 5. CBC and BMP in the a.m. 6. PT and dietary evaluation. James Coy D.O. DR: SARA JOB#: [id number] CC:
[2020-09-27] VITALS: BP 113/61
[2020-09-27] MEDS: Morphine Sulfate 2mg/ml Inj(IV/IM USE ONLY) IVP PRN ×2 (01:49→21:13)
[2020-09-27 04:00] VITALS: BP 109/63
[2020-09-27 06:14] LABS: HEMOGLOBIN 8.5 G/DL (14.2-18.0); MEAN CORPUSCULAR VOLUME 94 FL (80-99); PLATELET COUNT 73 K/UL (150-450); RED BLOOD COUNT 2.55 M/UL (4.70-6.10); RED CELL DISTRIBUTION WIDTH 18.9 % (11.6-14.8); WHITE BLOOD COUNT 9.8 K/UL (4.8-10.8)
--- NOTE | 2020-09-27 06:20 | NUR ---
NURSE NOTES: Urine specimen sent down to lab for UA & sodium urine
[2020-09-27 06:22] LABS: INR 2.2 (0.9-1.1)
[2020-09-27 06:28] LABS: AMMONIA 42 umol/L (11-32)
[2020-09-27] MEDS: Levothyroxine 25mcg tab ORAL SCH (06:31)
[2020-09-27 06:43] LABS: GAMMA GLUTAMYL TRANSPEPTIDASE 131 U/L (5-85); PHOSPHORUS 3.3 MG/DL (2.5-4.9)
[2020-09-27 06:52] LABS: ALANINE AMINOTRANSFERASE 119 U/L (12-78); ALBUMIN 1.5 G/DL (3.4-5.0); ALBUMIN/GLOBULIN RATIO 0.3 (1.0-2.7); ALKALINE PHOSPHATASE 159 U/L (46-116); ANION GAP 9 mmol/L (5-15); ASPARTATE AMINO TRANSFERASE 180 U/L (15-37); BILIRUBIN,TOTAL 16.2 MG/DL (0.2-1.0); BLOOD UREA NITROGEN 13 mg/dL (7-18); CALCIUM 7.5 MG/DL (8.5-10.1); CARBON DIOXIDE 20 MMOL/L (21-32); CHLORIDE 103 MMOL/L (98-107); CREATININE 0.9 MG/DL (0.55-1.30); HDL CHOLESTEROL 10 MG/DL (40-60); POTASSIUM 3.5 MMOL/L (3.5-5.1); SODIUM 132 MMOL/L (136-145); TRIGLYCERIDES 92 MG/DL (30-150)
[2020-09-27 06:57] LABS: BILIRUBIN,DIRECT 11.9 MG/DL (0.0-0.3)
--- NOTE | 2020-09-27 07:02 | NUR ---
NURSE HAND-OFF: Important Events on Shift:Nausea, IVF, Pain management Patient Status: Stable Diet: Low sodium Pending Orders: N/A Pending Results/Labs:N/A Pending MD notification:N/A Latest Vital Signs: Temperature 98.2 , Pulse 95 , B/P 109 /63 , Respiratory Rate 16 , O2 SAT 98 , Room Air, O2 Flow Rate . Vital Sign Comment: VS stable Latest Julian Fall Score: 35 Fall Risk: Medium Risk Safety Measures: Call light Within Reach, Bed Alarm Zone 2, Side Rails Side Rails x2, Bed position Low and Locked. Fall Precautions: Patient Fall Education Report will be given to Bill FIGUEROA.
[2020-09-27 07:11] LABS: CHOLESTEROL < 50 MG/DL (< 200)
[2020-09-27 07:27] LABS: FERRITIN 1411 NG/ML (8-388)
--- NOTE | 2020-09-27 07:30 | NUR ---
NURSE NOTES: Patient lying in bed awake. No complain of pain or distress at this time. Skin intact and dry. IV dressing intact and dry. Bed lowest position. Call light within reach. Will continue to monitor.
[2020-09-27 07:53] LABS: % IRON SATURATION 91 % (15-50); IRON 78 ug/dL (50-175); TOTAL IRON BINDING CAPACITY 86 ug/dL (250-450)
[2020-09-27 08:00] VITALS: BP 108/63
[2020-09-27 08:13] LABS: APPEARANCE,URINE CLOUDY; BILIRUBIN, URINE 3+ (NEGATIVE); COLOR,URINE BROWN; GLUCOSE, URINE (UA) NEGATIVE (NEGATIVE); KETONES,URINE 1+ (NEGATIVE); LEUKOCYTE ESTERASE ,URINE 1+ (NEGATIVE); NITRITE,URINE POSITIVE (NEGATIVE); PH,URINE 5 (4.5-8.0); PROTEIN,URINE 2+ (NEGATIVE); UROBILINOGEN,URINE 8 MG/DL (0.0-1.0)
--- NOTE | 2020-09-27 08:55 | NUR ---
PT EVALUATION NOTE Patient seen for initial evaluation and treatment initiated. Patient presents with LE weakness and decreased balance which impairs patient's ability to perform mobility tasks safely. Patient requires SBA for transfers with SPC. Patient able to ambulate 80 ft with SBA/CGA and SPC. Patient ambulates with Trendelenberg gait, decreased bilateral step length and foot clearance. Patient will benefit from skilled inpatient PT intervention to increase LE strength and postural stability for improved level of functional mobility and safety, including stair training as patient lives in second floor apartment without elevator access. Anticipate discharge home once medically cleared by MD. Further DME needs to be determined based on patient's progress. Addendum: 09/27/20 at 1257 by KATIA HONG PT Amended: Links added.
[2020-09-27] MEDS: Spironolactone 50mg tab ORAL SCH (09:00)
--- NOTE | 2020-09-27 09:02 | Infectious Diseases Prog Note ---
Assessment/Plan 35yo M with: Afebrile Leukocytosis, SP - likely reactive Abd pain and distension, s/p 2.6 L paracentesis 09/25 R/o SBP 09/19 BCx neg, UCx neg 09/25 Ascites fluid - 190 RBC, zero WBC --> unlikely infected COVID screen 09/19 CXR neg 09/20 Rapid COVID neg 09/26 COVID PCR p UGIB 2ry to ulcer 09/20 EGD: 1. Status post successful Hemoclip-assistance hemostasis of ulcer at the GE junction. Portal hypertensive gastropathy. No obvious esophageal or gastric varices. EtOH and Hep C cirrhosis Needs 6 mo sobriety from EtOH prior to placement on transplant list. Last drink was Jun 20, 2020. Plan: Cont cipro 500mg PO daily for SBP ppx (pt on this at home) OK to d/c from ID standpoint, s/p paracentesis, low s/f SBP given cell count F/u COVID PCR 09/26, screening Monitor CBC/CMP Monitor temp curve, hemodynamics Monitor resp status D/w RN Thank you for this consult. [facility] will continue to follow. Subjective Allergies: Coded Allergies: No Known Allergies (Unverified , 09/19/20) AF WBC 9.8 NAD on RA Some increase in abd distension since last para Nausea w/ eating Otherwise doing ok Objective Last 24 Hour Vital Signs Date Time Temp Pulse Resp B/P (MAP) Pulse Ox O2 Delivery O2 Flow Rate FiO2 09/27/20 08:00 98.2 95 16 108/63 (78) 99 09/27/20 04:00 98.2 95 16 109/63 (78) 98 09/27/20 00:00 98.7 94 16 113/61 (78) 97 09/26/20 20:30 Room Air 09/26/20 20:00 98.3 95 16 99/67 (78) 99 09/26/20 16:00 98.5 92 16 99/57 (71) 99 09/26/20 12:00 98.8 85 16 95/57 (70) 97 Height (Feet): 5 Height (Inches): 9.00 Weight (Pounds): 161 Gen: NAD HEENT: NCAT, EOMI, icteric sclera Pulm: BL chest rise on RA Abd: Soft, mildly distended (more than day prior) w/ +fluid wave Ext: No c/c/e Skin: No visible rashes Neuro: Awake, alert, interactive Microbiology Date/Time Source Procedure Growth Status 09/25/20 23:45 Rectum Received Laboratory Tests Test 09/27/20 05:45 09/27/20 06:20 White Blood Count 9.8 K/UL (4.8-10.8) Red Blood Count 2.55 M/UL (4.70-6.10) L Hemoglobin 8.5 G/DL (14.2-18.0) L Hematocrit 24.0 % (42.0-52.0) L Mean Corpuscular Volume 94 FL (80-99) Mean Corpuscular Hemoglobin 33.4 PG (27.0-31.0) H Mean Corpuscular Hemoglobin Concent 35.5 G/DL (32.0-36.0) Red Cell Distribution Width 18.9 % (11.6-14.8) H Platelet Count 73 K/UL (150-450) L Mean Platelet Volume 6.8 FL (6.5-10.1) Neutrophils (%) (Auto) % (45.0-75.0) Lymphocytes (%) (Auto) % (20.0-45.0) Monocytes (%) (Auto) % (1.0-10.0) Eosinophils (%) (Auto) % (0.0-3.0) Basophils (%) (Auto) % (0.0-2.0) Prothrombin Time 23.2 SEC (9.30-11.50) H Prothromb Time International Ratio 2.2 (0.9-1.1) H Activated Partial Thromboplast Time 61 SEC (23-33) H Sodium Level 132 MMOL/L (136-145) L Potassium Level 3.5 MMOL/L (3.5-5.1) Chloride Level 103 MMOL/L (98-107) Carbon Dioxide Level 20 MMOL/L (21-32) L Anion Gap 9 mmol/L (5-15) Blood Urea Nitrogen 13 mg/dL (7-18) Creatinine 0.9 MG/DL (0.55-1.30) Estimat Glomerular Filtration Rate > 60 mL/min (>60) Glucose Level 101 MG/DL (74-106) Uric Acid 3.5 MG/DL (2.6-7.2) Calcium Level 7.5 MG/DL (8.5-10.1) L Phosphorus Level 3.3 MG/DL (2.5-4.9) Magnesium Level 1.6 MG/DL (1.8-2.4) L Iron Level 78 ug/dL (50-175) Total Iron Binding Capacity 86 ug/dL (250-450) L Percent Iron Saturation 91 % (15-50) H Unsaturated Iron Binding 8 ug/dL (112-346) L Ferritin 1411 NG/ML (8-388) H Total Bilirubin 16.2 MG/DL (0.2-1.0) H Direct Bilirubin 11.9 MG/DL (0.0-0.3) H Gamma Glutamyl Transpeptidase 131 U/L (5-85) H Aspartate Amino Transf (AST/SGOT) 180 U/L (15-37) H Alanine Aminotransferase (ALT/SGPT) 119 U/L (12-78) H Alkaline Phosphatase 159 U/L (46-116) H Ammonia 42 umol/L (11-32) H C-Reactive Protein, Quantitative 5.2 mg/dL (0.00-0.90) H Pro-B-Type Natriuretic Peptide 61 pg/mL (0-125) Total Protein 6.3 G/DL (6.4-8.2) L Albumin 1.5 G/DL (3.4-5.0) L Globulin 4.8 g/dL Albumin/Globulin Ratio 0.3 (1.0-2.7) L Triglycerides Level 92 MG/DL (30-150) Cholesterol Level < 50 MG/DL (< 200) LDL Cholesterol 34 mg/dL (<100) HDL Cholesterol 10 MG/DL (40-60) L Cholesterol/HDL Ratio 5.0 (3.3-4.4) H Lipase 195 U/L (73-393) Vitamin B12 Level > 2000 PG/ML (193-986) H Folate 24.4 NG/ML (8.6-58.9) Hepatitis A IgM Antibody Pending Hepatitis B Surface Antigen Pending Hepatitis B Core IgM Antibody Pending Hepatitis C Antibody Pending Urine Color Brown Urine Appearance Cloudy Urine pH 5 (4.5-8.0) Urine Specific [place] 1.015 (1.005-1.035) Urine Protein 2+ (NEGATIVE) H Urine Glucose (UA) Negative (NEGATIVE) Urine Ketones 1+ (NEGATIVE) H Urine Blood 1+ (NEGATIVE) H Urine Nitrite Positive (NEGATIVE) H Urine Bilirubin 3+ (NEGATIVE) H Urine Ictotest Positive (NEGATIVE) Urine Urobilinogen 8 MG/DL (0.0-1.0) H Urine Leukocyte Esterase 1+ (NEGATIVE) H Urine RBC 0-2 /HPF (0 - 0) H Urine WBC 5-10 /HPF (0 - 0) H Urine Squamous Epithelial Cells Few /LPF (NONE/OCC) Urine Bacteria Moderate /HPF (NONE) H Urine Random Sodium 21 mmol/L (20-110) Current Medications Medications (Trade) Dose Ordered Sig/Santino Route PRN Reason Start Time Stop Time Status Last Admin Dose Admin Ciprofloxacin (Cipro 500mg tab) 500 mg DAILY ORAL 09/26/20 09:00 10/03/20 08:59 09/26/20 09:53 Folic Acid (Folate) 1 mg DAILY ORAL 09/26/20 09:00 10/26/20 08:59 09/26/20 09:52 Furosemide (Lasix) 20 mg DAILY IV 09/26/20 09:15 10/26/20 09:14 Lactulose (Cephulac) 20 gm DAILY ORAL 09/26/20 09:00 10/26/20 08:59 09/26/20 09:52 Levothyroxine Sodium (Synthroid) 25 mcg BEFORE BREAKFAST ORAL 09/26/20 06:30 10/26/20 06:29 09/27/20 06:31 Morphine Sulfate (Morphine Sulfate) 2 mg Q4H PRN IVP For Pain 09/25/20 21:45 10/02/20 21:44 09/27/20 01:49 Ondansetron HCl (Zofran) 4 mg Q4H PRN IVP Nausea & Vomiting 09/25/20 21:45 10/25/20 21:44 09/27/20 06:31 Pantoprazole (Protonix) 40 mg BID ORAL 09/26/20 18:00 10/26/20 08:59 09/26/20 17:35 Spironolactone (Aldactone) 50 mg DAILY ORAL 09/26/20 09:00 10/26/20 08:59 09/26/20 09:52 Lissette Au M.D. Sep 27, 2020 09:02
[2020-09-27] MEDS: Ciprofloxacin 500mg tab ORAL SCH (09:04)
[2020-09-27] MEDS: Lactulose 20gm/30ml UDC ORAL SCH (09:05)
--- NOTE | 2020-09-27 09:10 | General Progress Note ---
Subjective Constitutional: Reports: weakness Allergies: Coded Allergies: No Known Allergies (Unverified , 09/19/20) All Systems: reviewed and negative except above Subjective sitting on bed calm Objective Last 24 Hour Vital Signs Date Time Temp Pulse Resp B/P (MAP) Pulse Ox O2 Delivery O2 Flow Rate FiO2 09/27/20 08:00 98.2 95 16 108/63 (78) 99 09/27/20 04:00 98.2 95 16 109/63 (78) 98 09/27/20 00:00 98.7 94 16 113/61 (78) 97 09/26/20 20:30 Room Air 09/26/20 20:00 98.3 95 16 99/67 (78) 99 09/26/20 16:00 98.5 92 16 99/57 (71) 99 09/26/20 12:00 98.8 85 16 95/57 (70) 97 Intake and Output 09/26/20 09/27/20 19:00 07:00 Intake Total 390 ml 1160 ml Balance 390 ml 1160 ml Intake Oral 240 ml 800 ml IV Total 150 ml 360 ml # Voids 1 Laboratory Tests 09/27/20 05:45: White Blood Count 9.8, Red Blood Count 2.55L, Hemoglobin 8.5L, Hematocrit 24.0L, Mean Corpuscular Volume 94, Mean Corpuscular Hemoglobin 33.4H, Mean Corpuscular Hemoglobin Concent 35.5, Red Cell Distribution Width 18.9H, Platelet Count 73L, Mean Platelet Volume 6.8, Neutrophils (%) (Auto) , Lymphocytes (%) (Auto) , Monocytes (%) (Auto) , Eosinophils (%) (Auto) , Basophils (%) (Auto) , Prothrombin Time 23.2H, Prothromb Time International Ratio 2.2H, Activated Partial Thromboplast Time 61H, Sodium Level 132L, Potassium Level 3.5, Chloride Level 103, Carbon Dioxide Level 20L, Anion Gap 9, Blood Urea Nitrogen 13, Creatinine 0.9, Estimat Glomerular Filtration Rate > 60, Glucose Level 101, Uric Acid 3.5, Calcium Level 7.5L, Phosphorus Level 3.3, Magnesium Level 1.6L, Iron Level 78, Total Iron Binding Capacity 86L, Percent Iron Saturation 91H, Unsaturated Iron Binding 8L, Ferritin 1411H, Total Bilirubin 16.2H, Direct Bilirubin 11.9H, Gamma Glutamyl Transpeptidase 131H, Aspartate Amino Transf (AST/SGOT) 180H, Alanine Aminotransferase (ALT/SGPT) 119H, Alkaline Phosphatase 159H, Ammonia 42H, C-Reactive Protein, Quantitative 5.2H, Pro-B-Type Natriuretic Peptide 61, Total Protein 6.3L, Albumin 1.5L, Globulin 4.8, Albumin/Globulin Ratio 0.3L, Triglycerides Level 92, Cholesterol Level < 50, LDL Cholesterol 34, HDL Cholesterol 10L, Cholesterol/HDL Ratio 5.0H, Lipase 195, Vitamin B12 Level > 2000H, Folate 24.4, Hepatitis A IgM Antibody [Pending], Hepatitis B Surface Antigen [Pending], Hepatitis B Core IgM Antibody [Pending], Hepatitis C Antibody [Pending] 09/27/20 06:20: Urine Color Brown, Urine Appearance Cloudy, Urine pH 5, Urine Specific [place] 1.015, Urine Protein 2+H, Urine Glucose (UA) Negative, Urine Ketones 1+H, Urine Blood 1+H, Urine Nitrite PositiveH, Urine Bilirubin 3+H, Urine Ictotest Positive, Urine Urobilinogen 8H, Urine Leukocyte Esterase 1+H, Urine RBC 0-2H, Urine WBC 5-10H, Urine Squamous Epithelial Cells Few, Urine Bacteria ModerateH, Urine Random Sodium 21 Height (Feet): 5 Height (Inches): 9.00 Weight (Pounds): 161 EENT: normal ENT inspection Neck: normal alignment Cardiovascular: normal peripheral pulses, normal rate, regular rhythm Respiratory/Chest: chest wall non-tender, lungs clear, normal breath sounds Abdomen: normal bowel sounds, non tender, soft Extremities: normal inspection Edema: no edema noted Arm (L), no edema noted Arm (R), no edema noted Leg (L), no edema noted Leg (R), no edema noted Pedal (L), no edema noted Pedal (R), no edema noted Generalized Edema: trace edema Neurologic: motor weakness Skin: normal pigmentation, warm/dry Assessment/Plan Problem List: (1) Hyponatremia ICD Codes: E87.1 - Hypo-osmolality and hyponatremia SNOMED: 36312458 (2) Leukocytosis ICD Codes: D72.829 - Elevated white blood cell count, unspecified SNOMED: 943951432, 445524597 (3) Liver cirrhosis, alcoholic ICD Codes: K70.30 - Alcoholic cirrhosis of liver without ascites SNOMED: 803882292 (4) Anemia ICD Codes: D64.9 - Anemia, unspecified SNOMED: 014048612 (5) Alcoholic liver disease ICD Codes: K70.9 - Alcoholic liver disease, unspecified SNOMED: 09982467 (6) Abdominal pain ICD Codes: R10.9 - Unspecified abdominal pain SNOMED: 27374491 Status: unchanged Assessment/Plan: pt diet abx gi f/u cbc bmp am James Coy DO Sep 27, 2020 09:10
--- NOTE | 2020-09-27 10:35 | Nephrology Progress Note ---
Assessment/Plan Problem List: (1) Hyponatremia (2) Hepatitis C (3) Alcoholic liver disease (4) GI bleed (5) Anemia (6) Jaundice Assessment Hyponatremia Liver cirrhosis, alcoholic, hep C Ascites Tachycardia Leukocytosis, sepsis History of GI bleed and anemia Plan Hydrate, trial of 3% saline Slow diuresis Monitor electrolytes Protonix Monitor hemoglobin and hematocrit Per GI Per consultants Per orders Subjective ROS Limited/Unobtainable: No Objective Objective Last 24 Hour Vital Signs Date Time Temp Pulse Resp B/P (MAP) Pulse Ox O2 Delivery O2 Flow Rate FiO2 09/27/20 09:00 Room Air 09/27/20 08:00 98.2 95 16 108/63 (78) 99 09/27/20 04:00 98.2 95 16 109/63 (78) 98 09/27/20 00:00 98.7 94 16 113/61 (78) 97 09/26/20 20:30 Room Air 09/26/20 20:00 98.3 95 16 99/67 (78) 99 09/26/20 16:00 98.5 92 16 99/57 (71) 99 09/26/20 12:00 98.8 85 16 95/57 (70) 97 Intake and Output 09/26/20 09/27/20 19:00 07:00 Intake Total 390 ml 1160 ml Balance 390 ml 1160 ml Intake Oral 240 ml 800 ml IV Total 150 ml 360 ml # Voids 1 Current Medications Medications (Trade) Dose Ordered Sig/Santino Route PRN Reason Start Time Stop Time Status Last Admin Dose Admin Ciprofloxacin (Cipro 500mg tab) 500 mg DAILY ORAL 09/26/20 09:00 10/03/20 08:59 09/27/20 09:04 Folic Acid (Folate) 1 mg DAILY ORAL 09/26/20 09:00 10/26/20 08:59 09/27/20 09:04 Furosemide (Lasix) 20 mg DAILY IV 09/26/20 09:15 10/26/20 09:14 09/27/20 09:05 Lactulose (Cephulac) 20 gm DAILY ORAL 09/26/20 09:00 10/26/20 08:59 09/27/20 09:05 Levothyroxine Sodium (Synthroid) 25 mcg BEFORE BREAKFAST ORAL 09/26/20 06:30 10/26/20 06:29 09/27/20 06:31 Morphine Sulfate (Morphine Sulfate) 2 mg Q4H PRN IVP For Pain 09/25/20 21:45 10/02/20 21:44 09/27/20 01:49 Ondansetron HCl (Zofran) 4 mg Q4H PRN IVP Nausea & Vomiting 09/25/20 21:45 10/25/20 21:44 09/27/20 06:31 Pantoprazole (Protonix) 40 mg BID ORAL 09/26/20 18:00 10/26/20 08:59 09/27/20 09:04 Spironolactone (Aldactone) 50 mg DAILY ORAL 09/26/20 09:00 10/26/20 08:59 09/26/20 09:52 Laboratory Tests 09/27/20 05:45: White Blood Count 9.8, Red Blood Count 2.55L, Hemoglobin 8.5L, Hematocrit 24.0L, Mean Corpuscular Volume 94, Mean Corpuscular Hemoglobin 33.4H, Mean Corpuscular Hemoglobin Concent 35.5, Red Cell Distribution Width 18.9H, Platelet Count 73L, Mean Platelet Volume 6.8, Neutrophils (%) (Auto) , Lymphocytes (%) (Auto) , Monocytes (%) (Auto) , Eosinophils (%) (Auto) , Basophils (%) (Auto) , Prothrombin Time 23.2H, Prothromb Time International Ratio 2.2H, Activated Partial Thromboplast Time 61H, Sodium Level 132L, Potassium Level 3.5, Chloride Level 103, Carbon Dioxide Level 20L, Anion Gap 9, Blood Urea Nitrogen 13, Creatinine 0.9, Estimat Glomerular Filtration Rate > 60, Glucose Level 101, Uric Acid 3.5, Calcium Level 7.5L, Phosphorus Level 3.3, Magnesium Level 1.6L, Iron Level 78, Total Iron Binding Capacity 86L, Percent Iron Saturation 91H, Unsaturated Iron Binding 8L, Ferritin 1411H, Total Bilirubin 16.2H, Direct Bilirubin 11.9H, Gamma Glutamyl Transpeptidase 131H, Aspartate Amino Transf (AST/SGOT) 180H, Alanine Aminotransferase (ALT/SGPT) 119H, Alkaline Phosphatase 159H, Ammonia 42H, C-Reactive Protein, Quantitative 5.2H, Pro-B-Type Natriuretic Peptide 61, Total Protein 6.3L, Albumin 1.5L, Globulin 4.8, Albumin/Globulin Ratio 0.3L, Triglycerides Level 92, Cholesterol Level < 50, LDL Cholesterol 34, HDL Cholesterol 10L, Cholesterol/HDL Ratio 5.0H, Lipase 195, Vitamin B12 Level > 2000H, Folate 24.4, Hepatitis A IgM Antibody [Pending], Hepatitis B Surface Antigen [Pending], Hepatitis B Core IgM Antibody [Pending], Hepatitis C Antibody [Pending] 09/27/20 06:20: Urine Color Brown, Urine Appearance Cloudy, Urine pH 5, Urine Specific [place] 1.015, Urine Protein 2+H, Urine Glucose (UA) Negative, Urine Ketones 1+H, Urine Blood 1+H, Urine Nitrite PositiveH, Urine Bilirubin 3+H, Urine Ictotest Positive, Urine Urobilinogen 8H, Urine Leukocyte Esterase 1+H, Urine RBC 0-2H, Urine WBC 5-10H, Urine Squamous Epithelial Cells Few, Urine Bacteria ModerateH, Urine Random Sodium 21 Height (Feet): 5 Height (Inches): 9.00 Weight (Pounds): 161 General Appearance: no apparent distress Cardiovascular: tachycardia Respiratory/Chest: decreased breath sounds Abdomen: distended Santo Pruitt MD Sep 27, 2020 10:35
--- NOTE | 2020-09-27 11:36 | General Progress Note ---
Subjective ROS Limited/Unobtainable: Yes Allergies: Coded Allergies: No Known Allergies (Unverified , 09/19/20) Objective Last 24 Hour Vital Signs Date Time Temp Pulse Resp B/P (MAP) Pulse Ox O2 Delivery O2 Flow Rate FiO2 09/27/20 09:00 Room Air 09/27/20 08:00 98.2 95 16 108/63 (78) 99 09/27/20 04:00 98.2 95 16 109/63 (78) 98 09/27/20 00:00 98.7 94 16 113/61 (78) 97 09/26/20 20:30 Room Air 09/26/20 20:00 98.3 95 16 99/67 (78) 99 09/26/20 16:00 98.5 92 16 99/57 (71) 99 09/26/20 12:00 98.8 85 16 95/57 (70) 97 Intake and Output 09/26/20 09/27/20 19:00 07:00 Intake Total 390 ml 1160 ml Balance 390 ml 1160 ml Intake Oral 240 ml 800 ml IV Total 150 ml 360 ml # Voids 1 Laboratory Tests 09/27/20 05:45: White Blood Count 9.8, Red Blood Count 2.55L, Hemoglobin 8.5L, Hematocrit 24.0L, Mean Corpuscular Volume 94, Mean Corpuscular Hemoglobin 33.4H, Mean Corpuscular Hemoglobin Concent 35.5, Red Cell Distribution Width 18.9H, Platelet Count 73L, Mean Platelet Volume 6.8, Neutrophils (%) (Auto) , Lymphocytes (%) (Auto) , Monocytes (%) (Auto) , Eosinophils (%) (Auto) , Basophils (%) (Auto) , Prothrombin Time 23.2H, Prothromb Time International Ratio 2.2H, Activated Partial Thromboplast Time 61H, Sodium Level 132L, Potassium Level 3.5, Chloride Level 103, Carbon Dioxide Level 20L, Anion Gap 9, Blood Urea Nitrogen 13, Creatinine 0.9, Estimat Glomerular Filtration Rate > 60, Glucose Level 101, Uric Acid 3.5, Calcium Level 7.5L, Phosphorus Level 3.3, Magnesium Level 1.6L, Iron Level 78, Total Iron Binding Capacity 86L, Percent Iron Saturation 91H, Unsaturated Iron Binding 8L, Ferritin 1411H, Total Bilirubin 16.2H, Direct Bilirubin 11.9H, Gamma Glutamyl Transpeptidase 131H, Aspartate Amino Transf (AST/SGOT) 180H, Alanine Aminotransferase (ALT/SGPT) 119H, Alkaline Phosphatase 159H, Ammonia 42H, C-Reactive Protein, Quantitative 5.2H, Pro-B-Type Natriuretic Peptide 61, Total Protein 6.3L, Albumin 1.5L, Globulin 4.8, Albumin/Globulin Ratio 0.3L, Triglycerides Level 92, Cholesterol Level < 50, LDL Cholesterol 34, HDL Cholesterol 10L, Cholesterol/HDL Ratio 5.0H, Lipase 195, Vitamin B12 Level > 2000H, Folate 24.4, Hepatitis A IgM Antibody [Pending], Hepatitis B Surface An tigen [Pending], Hepatitis B Core IgM Antibody [Pending], Hepatitis C Antibody [Pending] 09/27/20 06:20: Urine Color Brown, Urine Appearance Cloudy, Urine pH 5, Urine Specific [place] 1.015, Urine Protein 2+H, Urine Glucose (UA) Negative, Urine Ketones 1+H, Urine Blood 1+H, Urine Nitrite PositiveH, Urine Bilirubin 3+H, Urine Ictotest Positive, Urine Urobilinogen 8H, Urine Leukocyte Esterase 1+H, Urine RBC 0-2H, Urine WBC 5-10H, Urine Squamous Epithelial Cells Few, Urine Bacteria ModerateH, Urine Random Sodium 21 Height (Feet): 5 Height (Inches): 9.00 Weight (Pounds): 161 General Appearance: no apparent distress EENT: normal ENT inspection Neck: supple Cardiovascular: normal rate Respiratory/Chest: decreased breath sounds Abdomen: normal bowel sounds, non tender, soft Extremities: non-tender Assessment/Plan Problem List: (1) Hepatitis C ICD Codes: B19.20 - Unspecified viral hepatitis C without hepatic coma SNOMED: 41490613 (2) Alcoholic liver disease ICD Codes: K70.9 - Alcoholic liver disease, unspecified SNOMED: 90105151 (3) Anemia ICD Codes: D64.9 - Anemia, unspecified SNOMED: 116580055 (4) Liver cirrhosis, alcoholic ICD Codes: K70.30 - Alcoholic cirrhosis of liver without ascites SNOMED: 137029058 (5) Ascites ICD Codes: R18.8 - Other ascites SNOMED: 145725838 (6) GI bleed ICD Codes: K92.2 - Gastrointestinal hemorrhage, unspecified SNOMED: 37226432 (7) Hyponatremia ICD Codes: E87.1 - Hypo-osmolality and hyponatremia SNOMED: 10951856 Status: unchanged Assessment/Plan: s/p recent EGD VIT K repeat labs lasix 20 mg and aldactone 50 mg>> will increase as tolerated s/p paracentesis 2 gm sodium diet Arpit Reyez MD Sep 27, 2020 11:36
[2020-09-27 12:00] VITALS: BP 107/64
[2020-09-27] MEDS ORDERED: NaCl 3% 500ml 250 ML IV ONE (13:00)
--- NOTE | 2020-09-27 13:03 | NUR ---
CASE MANAGEMENT:REVIEW SI;LIVER CIRRHOSIS. GI BLEED. ASCITES. 98.7 95 16 113/61 97% ON RA H/H 8.5/24.0 PLT 73 NA 132 CA 7.5 MAG 1.6 IRON 86 FERRITIN 1411 T-BILI 16.2 D-BILI 11.3 AST 180 ALT 159 ALP 159 NH3 42 CRP 5.2 ALB 1.5 IS;IVF NS MAG SULFATE IV PROTONIX PO BID LASIX IV QD ALDACTONE PO QD LACTULOSE PO QD CIPRO PO QD ZOFRAN IV Q4 PRN MORPHINE SULFATE IV Q4 PRN MED SURG STATUS DCP;FROM HOME
[2020-09-27 16:00] VITALS: BP 109/71
--- NOTE | 2020-09-27 16:34 | Surgery Progress Note ---
Surgery Progress Note Subjective Symptoms: improved, tolerating diet, passing flatus Objective Last 24 Hour Vital Signs Date Time Temp Pulse Resp B/P (MAP) Pulse Ox O2 Delivery O2 Flow Rate FiO2 09/27/20 12:00 97.9 95 16 107/64 (78) 99 09/27/20 09:00 Room Air 09/27/20 08:00 98.2 95 16 108/63 (78) 99 09/27/20 04:00 98.2 95 16 109/63 (78) 98 09/27/20 00:00 98.7 94 16 113/61 (78) 97 09/26/20 20:30 Room Air 09/26/20 20:00 98.3 95 16 99/67 (78) 99 I&O Intake and Output 09/26/20 09/27/20 19:00 07:00 Intake Total 390 ml 1160 ml Balance 390 ml 1160 ml Intake Oral 240 ml 800 ml IV Total 150 ml 360 ml # Voids 1 Dressing: saturated Cardiovascular: RSR Respiratory: clear, decreased breath sounds Abdomen: soft, non-tender, present bowel sounds, non-distended - fluid Extremities: no tenderness, no cyanosis Laboratory Tests Test 09/27/20 05:45 09/27/20 06:20 White Blood Count 9.8 K/UL (4.8-10.8) Red Blood Count 2.55 M/UL (4.70-6.10) L Hemoglobin 8.5 G/DL (14.2-18.0) L Hematocrit 24.0 % (42.0-52.0) L Mean Corpuscular Volume 94 FL (80-99) Mean Corpuscular Hemoglobin 33.4 PG (27.0-31.0) H Mean Corpuscular Hemoglobin Concent 35.5 G/DL (32.0-36.0) Red Cell Distribution Width 18.9 % (11.6-14.8) H Platelet Count 73 K/UL (150-450) L Mean Platelet Volume 6.8 FL (6.5-10.1) Neutrophils (%) (Auto) % (45.0-75.0) Lymphocytes (%) (Auto) % (20.0-45.0) Monocytes (%) (Auto) % (1.0-10.0) Eosinophils (%) (Auto) % (0.0-3.0) Basophils (%) (Auto) % (0.0-2.0) Prothrombin Time 23.2 SEC (9.30-11.50) H Prothromb Time International Ratio 2.2 (0.9-1.1) H Activated Partial Thromboplast Time 61 SEC (23-33) H Sodium Level 132 MMOL/L (136-145) L Potassium Level 3.5 MMOL/L (3.5-5.1) Chloride Level 103 MMOL/L (98-107) Carbon Dioxide Level 20 MMOL/L (21-32) L Anion Gap 9 mmol/L (5-15) Blood Urea Nitrogen 13 mg/dL (7-18) Creatinine 0.9 MG/DL (0.55-1.30) Estimat Glomerular Filtration Rate > 60 mL/min (>60) Glucose Level 101 MG/DL (74-106) Uric Acid 3.5 MG/DL (2.6-7.2) Calcium Level 7.5 MG/DL (8.5-10.1) L Phosphorus Level 3.3 MG/DL (2.5-4.9) Magnesium Level 1.6 MG/DL (1.8-2.4) L Iron Level 78 ug/dL (50-175) Total Iron Binding Capacity 86 ug/dL (250-450) L Percent Iron Saturation 91 % (15-50) H Unsaturated Iron Binding 8 ug/dL (112-346) L Ferritin 1411 NG/ML (8-388) H Total Bilirubin 16.2 MG/DL (0.2-1.0) H Direct Bilirubin 11.9 MG/DL (0.0-0.3) H Gamma Glutamyl Transpeptidase 131 U/L (5-85) H Aspartate Amino Transf (AST/SGOT) 180 U/L (15-37) H Alanine Aminotransferase (ALT/SGPT) 119 U/L (12-78) H Alkaline Phosphatase 159 U/L (46-116) H Ammonia 42 umol/L (11-32) H C-Reactive Protein, Quantitative 5.2 mg/dL (0.00-0.90) H Pro-B-Type Natriuretic Peptide 61 pg/mL (0-125) Total Protein 6.3 G/DL (6.4-8.2) L Albumin 1.5 G/DL (3.4-5.0) L Globulin 4.8 g/dL Albumin/Globulin Ratio 0.3 (1.0-2.7) L Triglycerides Level 92 MG/DL (30-150) Cholesterol Level < 50 MG/DL (< 200) LDL Cholesterol 34 mg/dL (<100) HDL Cholesterol 10 MG/DL (40-60) L Cholesterol/HDL Ratio 5.0 (3.3-4.4) H Lipase 195 U/L (73-393) Vitamin B12 Level > 2000 PG/ML (193-986) H Folate 24.4 NG/ML (8.6-58.9) Hepatitis A IgM Antibody Pending Hepatitis B Surface Antigen Pending Hepatitis B Core IgM Antibody Pending Hepatitis C Antibody Pending Urine Color Brown Urine Appearance Cloudy Urine pH 5 (4.5-8.0) Urine Specific [address] 1.015 (1.005-1.035) Urine Protein 2+ (NEGATIVE) H Urine Glucose (UA) Negative (NEGATIVE) Urine Ketones 1+ (NEGATIVE) H Urine Blood 1+ (NEGATIVE) H Urine Nitrite Positive (NEGATIVE) H Urine Bilirubin 3+ (NEGATIVE) H Urine Ictotest Positive (NEGATIVE) Urine Urobilinogen 8 MG/DL (0.0-1.0) H Urine Leukocyte Esterase 1+ (NEGATIVE) H Urine RBC 0-2 /HPF (0 - 0) H Urine WBC 5-10 /HPF (0 - 0) H Urine Squamous Epithelial Cells Few /LPF (NONE/OCC) Urine Bacteria Moderate /HPF (NONE) H Urine Random Sodium 21 mmol/L (20-110) Plan Problems: (1) Ascites (2) Tachycardia (3) Hyponatremia (4) Leukocytosis (5) Liver cirrhosis, alcoholic (6) Anemia (7) Alcoholic liver disease (8) Hepatitis C (9) GI bleed (10) Sepsis (11) GLENN (acute kidney injury) (12) Abdominal pain Assessment & Plan: This is a very pleasant 35-year-old male complaining of abdominal pain liver cirrhosis significantly cirrhotic with icterus jaundice. Patient states diffuse abdominal pain since discharge. Had a paracentesis today and feels significantly better. Nominal exam is fairly benign. Leukocytosis resolved. Unlikely spontaneous bacterial peritonitis. Nominal pain likely from fluid retention. Now the paracentesis feels better. Patient is fluid sent for microbiology follow-up. Antibiotics per infectious disease. No acute surgical intervention planned. Okay for diet. Activity as tolerated. Follow with recommendations trend labs thank you for your participate patient's care GI input appreciated Ultrasound used to localize optimal puncture site. Sterile prepping and draping including sterile ultrasound gel and probe cover. Local anesthesia with 1% lidocaine. Under real-time ultrasound guidance, the peritoneal space was punctured using a 5 Japanese Devtapeh catheter. Stylet removed. Catheter placed to vacuum bottle suction. Total 2.6 liters of fluid aspirated. Patient tolerated procedure well, without immediate complication. Findings: Followup sonography demonstrates near complete resolution of ascites with trace residual ascites. Impression: Successful ultrasound-guided paracentesis, yielding 2.6 liters of fluid Homer Delgado Sep 27, 2020 16:34
--- NOTE | 2020-09-27 19:30 | NUR ---
NURSE NOTES: Receive a report from CAROLINA Khan. Pt is awake and alert. No acute distress noted. Denies pain or nausea. About to start late dinner. 3% NACL is running on left AC without infiltration. No itching noted. Pt says that he had small amount of BM earlier. Waiting for transferring 4E. Call light within reach. Will continue to monitor.
--- NOTE | 2020-09-27 19:30 | NUR ---
NURSE HAND-OFF: Important Events on Shift: Will transfer to Patient Status: Stable Diet: Low Sodium Diet Pending Orders: N/A Pending Results/Labs: Mg, Phos, CMP, Urine acid, CBC on 09/28 Pending MD notification: N/A Latest Vital Signs: Temperature 98.3 , Pulse 104 , B/P 109 /71 , Respiratory Rate 18 , O2 SAT 98 , Room Air, O2 Flow Rate . Vital Sign Comment: Stable Latest Julian Fall Score: 50 Fall Risk: High Risk Safety Measures: Call light Within Reach, Bed Alarm Zone 2, Side Rails Side Rails x2, Bed position Low and Locked. Fall Precautions: Yellow Socks Door Sign Patient Fall Education Report given to Oliviao RN. Patient in stable condition.
[2020-09-27 20:00] VITALS: BP 121/68
--- NOTE | 2020-09-27 20:10 | NUR ---
NURSE NOTES: Pt had one time vomiting during eating about 50ml. Given Zofran 4mg IVS. Will continue to monitor.
--- NOTE | 2020-09-27 23:20 | NUR ---
NURSE HAND-OFF: Important Events on Shift: transfer to . Zofran x1/ Morphine x1/ Covid-19 swab needs to be done. Patient Status: [stable] Diet: [low sodium diet] Pending Orders: [] Pending Results/Labs:[] Pending MD notification:[] Latest Vital Signs: Temperature 98.8 , Pulse 105 , B/P 121 /68 , Respiratory Rate 20 , O2 SAT 97 , Room Air, O2 Flow Rate . Vital Sign Comment: [] Latest Julian Fall Score: 60 Fall Risk: High Risk Safety Measures: Call light Within Reach, Bed Alarm Zone 2, Side Rails Side Rails x2, Bed position Low and Locked. Fall Precautions: Yellow Socks Door Sign Patient Fall Education Report given to CAROLINA Doll. Endorsed plans of care. Pt is awake and alert. No acute distress noted.
--- NOTE | 2020-09-27 23:28 | NUR ---
NURSE NOTES: Received patient in bed, transfer from [facility] floor, awake, alert, oriented x4, able to make his needs known, IV site is clean dry and intact, patient uses cane for ambulation, on room air, belongings list is verified items accounted for and signed. Skin is intact, continent. Call light is within reach, bed is lowered, locked, alarm is on, will continue to monitor for comfort and safety.
[2020-09-28] VITALS: BP 111/69
[2020-09-28] MEDS: Morphine Sulfate 2mg/ml Inj(IV/IM USE ONLY) IVP PRN ×3 (01:44→13:42)
[2020-09-28 04:00] VITALS: BP 109/67
[2020-09-28 06:03] LABS: HEMATOCRIT 25.5 % (42.0-52.0); HEMOGLOBIN 9.2 G/DL (14.2-18.0); MEAN CORPUSCULAR VOLUME 93 FL (80-99); PLATELET COUNT 84 K/UL (150-450); RED BLOOD COUNT 2.75 M/UL (4.70-6.10); RED CELL DISTRIBUTION WIDTH 19.6 % (11.6-14.8); WHITE BLOOD COUNT 12.3 K/UL (4.8-10.8)
[2020-09-28] MEDS: Levothyroxine 25mcg tab ORAL SCH (06:08)
[2020-09-28 06:14] LABS: PHOSPHORUS 3.1 MG/DL (2.5-4.9)
[2020-09-28 06:20] LABS: ALANINE AMINOTRANSFERASE 130 U/L (12-78); ALBUMIN 1.7 G/DL (3.4-5.0); ALBUMIN/GLOBULIN RATIO 0.3 (1.0-2.7); ALKALINE PHOSPHATASE 197 U/L (46-116); ANION GAP 10 mmol/L (5-15); ASPARTATE AMINO TRANSFERASE 198 U/L (15-37); BILIRUBIN,TOTAL 18.2 MG/DL (0.2-1.0); BLOOD UREA NITROGEN 13 mg/dL (7-18); CALCIUM 7.8 MG/DL (8.5-10.1); CARBON DIOXIDE 20 MMOL/L (21-32); CHLORIDE 101 MMOL/L (98-107); POTASSIUM 3.5 MMOL/L (3.5-5.1); SODIUM 131 MMOL/L (136-145)
[2020-09-28 06:27] LABS: BILIRUBIN,DIRECT 13.3 MG/DL (0.0-0.3)
--- NOTE | 2020-09-28 07:18 | NUR ---
NURSE HAND-OFF: Important Events on Shift:uneventful, stable Patient Status: full Diet: low sodium Pending Orders: Pending Results/Labs: Pending MD notification: Latest Vital Signs: Temperature 97.9 , Pulse 99 , B/P 109 /67 , Respiratory Rate 20 , O2 SAT 100 , Room Air, O2 Flow Rate . Vital Sign Comment: Latest Julian Fall Score: 60 Fall Risk: High Risk Safety Measures: Call light Within Reach, Bed Alarm Zone 2, Side Rails Side Rails x2, Bed position Low and Locked. Fall Precautions: Yellow Socks Door Sign Patient Fall Education Report given to Giulia FIGUEROA
[2020-09-28 08:00] VITALS: BP 110/72
--- NOTE | 2020-09-28 08:30 | General Progress Note ---
Subjective ROS Limited/Unobtainable: No Allergies: Coded Allergies: No Known Allergies (Unverified , 09/19/20) Objective Last 24 Hour Vital Signs Date Time Temp Pulse Resp B/P (MAP) Pulse Ox O2 Delivery O2 Flow Rate FiO2 09/28/20 06:40 97.9 09/28/20 04:00 97.9 99 20 109/67 (81) 100 09/28/20 03:05 98.0 09/28/20 00:00 98.0 93 18 111/69 (83) 100 09/27/20 21:00 Room Air 09/27/20 20:00 98.8 105 20 121/68 (85) 97 09/27/20 16:00 98.3 104 18 109/71 (84) 98 09/27/20 12:00 97.9 95 16 107/64 (78) 99 09/27/20 09:00 Room Air Intake and Output 09/27/20 09/28/20 19:00 07:00 Intake Total 600 ml Balance 600 ml Intake Oral 600 ml Laboratory Tests 09/28/20 05:00: White Blood Count 12.3H, Red Blood Count 2.75L, Hemoglobin 9.2L, Hematocrit 25.5L, Mean Corpuscular Volume 93, Mean Corpuscular Hemoglobin 33.5H, Mean Co rpuscular Hemoglobin Concent 36.1H, Red Cell Distribution Width 19.6H, Platelet Count 84L, Mean Platelet Volume 7.3, Neutrophils (%) (Auto) , Lymphocytes (%) (Auto) , Monocytes (%) (Auto) , Eosinophils (%) (Auto) , Basophils (%) (Auto) , Neutrophils % (Manual) [Pending], Lymphocytes % (Manual) [Pending], Platelet Estimate [Pending], Platelet Morphology [Pending], Sodium Level 131L, Potassium Level 3.5, Chloride Level 101, Carbon Dioxide Level 20L, Anion Gap 10, Blood Urea Nitrogen 13, Creatinine 1.0, Estimat Glomerular Filtration Rate > 60, Glucose Level 99, Uric Acid 3.6, Calcium Level 7.8L, Phosphorus Level 3.1, Magnesium Level 2.1, Total Bilirubin 18.2H, Direct Bilirubin 13.3H, Aspartate Amino Transf (AST/SGOT) 198H, Alanine Aminotransferase (ALT/SGPT) 130H, Alkaline Phosphatase 197H, Total Protein 7.3, Albumin 1.7L, Globulin 5.6, Albumin/Globulin Ratio 0.3L Height (Feet): 5 Height (Inches): 9.00 Weight (Pounds): 161 General Appearance: no apparent distress EENT: PERRL/EOMI Neck: supple Cardiovascular: normal rate Respiratory/Chest: decreased breath sounds Abdomen: soft, hypoactive bowel sounds, distended Extremities: non-tender Assessment/Plan Problem List: (1) Hepatitis C ICD Codes: B19.20 - Unspecified viral hepatitis C without hepatic coma SNOMED: 78577307 (2) Alcoholic liver disease ICD Codes: K70.9 - Alcoholic liver disease, unspecified SNOMED: 71267027 (3) Anemia ICD Codes: D64.9 - Anemia, unspecified SNOMED: 233697227 (4) Liver cirrhosis, alcoholic ICD Codes: K70.30 - Alcoholic cirrhosis of liver without ascites SNOMED: 324903421 (5) Ascites ICD Codes: R18.8 - Other ascites SNOMED: 971962852 (6) GI bleed ICD Codes: K92.2 - Gastrointestinal hemorrhage, unspecified SNOMED: 43303306 (7) Hyponatremia ICD Codes: E87.1 - Hypo-osmolality and hyponatremia SNOMED: 25259454 Status: unchanged Assessment/Plan: s/p recent EGD VIT K repeat labs lasix 20 mg and aldactone 50 mg>> will increase as tolerated s/p paracentesis 2 gm sodium diet Arpit Reyez MD Sep 28, 2020 08:30
--- NOTE | 2020-09-28 08:41 | General Progress Note ---
Subjective Constitutional: Reports: weakness Allergies: Coded Allergies: No Known Allergies (Unverified , 09/19/20) All Systems: reviewed and negative except above Subjective sitting on bed calm Objective Last 24 Hour Vital Signs Date Time Temp Pulse Resp B/P (MAP) Pulse Ox O2 Delivery O2 Flow Rate FiO2 09/28/20 06:40 97.9 09/28/20 04:00 97.9 99 20 109/67 (81) 100 09/28/20 03:05 98.0 09/28/20 00:00 98.0 93 18 111/69 (83) 100 09/27/20 21:00 Room Air 09/27/20 20:00 98.8 105 20 121/68 (85) 97 09/27/20 16:00 98.3 104 18 109/71 (84) 98 09/27/20 12:00 97.9 95 16 107/64 (78) 99 09/27/20 09:00 Room Air Intake and Output 09/27/20 09/28/20 19:00 07:00 Intake Total 600 ml Balance 600 ml Intake Oral 600 ml Laboratory Tests 09/28/20 05:00: White Blood Count 12.3H, Red Blood Count 2.75L, Hemoglobin 9.2L, Hematocrit 25.5L, Mean Corpuscular Volume 93, Mean Corpuscular Hemoglobin 33.5H, Mean Cor puscular Hemoglobin Concent 36.1H, Red Cell Distribution Width 19.6H, Platelet Count 84L, Mean Platelet Volume 7.3, Neutrophils (%) (Auto) , Lymphocytes (%) (Auto) , Monocytes (%) (Auto) , Eosinophils (%) (Auto) , Basophils (%) (Auto) , Neutrophils % (Manual) [Pending], Lymphocytes % (Manual) [Pending], Platelet Estimate [Pending], Platelet Morphology [Pending], Sodium Level 131L, Potassium Level 3.5, Chloride Level 101, Carbon Dioxide Level 20L, Anion Gap 10, Blood Urea Nitrogen 13, Creatinine 1.0, Estimat Glomerular Filtration Rate > 60, Glucose Level 99, Uric Acid 3.6, Calcium Level 7.8L, Phosphorus Level 3.1, Magnesium Level 2.1, Total Bilirubin 18.2H, Direct Bilirubin 13.3H, Aspartate Amino Transf (AST/SGOT) 198H, Alanine Aminotransferase (ALT/SGPT) 130H, Alkaline Phosphatase 197H, Total Protein 7.3, Albumin 1.7L, Globulin 5.6, Albumin/Globulin Ratio 0.3L Height (Feet): 5 Height (Inches): 9.00 Weight (Pounds): 161 General Appearance: lethargic EENT: normal ENT inspection Neck: normal alignment Cardiovascular: normal peripheral pulses, normal rate, regular rhythm Respiratory/Chest: chest wall non-tender, lungs clear, normal breath sounds Abdomen: normal bowel sounds, non tender, soft Extremities: normal inspection Edema: no edema noted Arm (L), no edema noted Arm (R), no edema noted Leg (L), no edema noted Leg (R), no edema noted Pedal (L), no edema noted Pedal (R), no edema noted Generalized Neurologic: motor weakness Skin: normal pigmentation, warm/dry Assessment/Plan Problem List: (1) Hyponatremia ICD Codes: E87.1 - Hypo-osmolality and hyponatremia SNOMED: 99947731 (2) Leukocytosis ICD Codes: D72.829 - Elevated white blood cell count, unspecified SNOMED: 854647170, 924643068 (3) Liver cirrhosis, alcoholic ICD Codes: K70.30 - Alcoholic cirrhosis of liver without ascites SNOMED: 389746751 (4) Anemia ICD Codes: D64.9 - Anemia, unspecified SNOMED: 939821149 (5) Alcoholic liver disease ICD Codes: K70.9 - Alcoholic liver disease, unspecified SNOMED: 42281697 (6) Abdominal pain ICD Codes: R10.9 - Unspecified abdominal pain SNOMED: 21647725 Status: unchanged Assessment/Plan: pt diet abx gi f/u cbc bmp am James Coy DO Sep 28, 2020 08:41
[2020-09-28] MEDS: Lactulose 20gm/30ml UDC ORAL SCH (08:43)
[2020-09-28] MEDS: Ciprofloxacin 500mg tab ORAL SCH (08:44)
[2020-09-28] MEDS: Spironolactone 50mg tab ORAL SCH (08:44)
--- NOTE | 2020-09-28 09:00 | NUR ---
NURSE NOTES: Patient awake and alert and oriented,respirations unlabored.patient sitting up in bed and eating breakfast.Will monitor Call light within reach.
--- NOTE | 2020-09-28 11:10 | NUR ---
CASE MANAGEMENT:REVIEW 09/28/20 SI: HEP C. ETOH LIVER CIRRHOSIS. ASCITES S/P PARACENTESIS ~ 2.6 L 97.9 97 20 110/72 97% ON RA WBC+12.3 PLT-84 NA-131 TBILI+18.2 DBILI+13.3 AST/ALT+198/130 IS: IV LASIX QD PROTONIX PO BID ALDACTONE PO QD LACTULOSE PO QD CIPRO PO QD SYNTHROID PO QAM IV MORPHINE Q4HRS PRN : MED/SURG 4 [facility] DCP; FROM HOME PLAN: NOVEL COVID SWAB ORDERED
[2020-09-28 12:00] VITALS: BP 109/67
--- NOTE | 2020-09-28 12:25 | Nephrology Progress Note ---
Assessment/Plan Problem List: (1) Hyponatremia (2) Hepatitis C (3) Alcoholic liver disease (4) GI bleed (5) Anemia (6) Jaundice Assessment Hyponatremia Liver cirrhosis, alcoholic, hep C Ascites Tachycardia Leukocytosis, sepsis History of GI bleed and anemia Plan September 28: Labs reviewed. Serum sodium up to 131. Continue current management and monitor electrolytes. Continue per consultants. Hydrate, trial of 3% saline Slow diuresis Monitor electrolytes Protonix Monitor hemoglobin and hematocrit Per GI Per consultants Per orders Subjective ROS Limited/Unobtainable: No Constitutional: Reports: malaise Objective Objective Last 24 Hour Vital Signs Date Time Temp Pulse Resp B/P (MAP) Pulse Ox O2 Delivery O2 Flow Rate FiO2 09/28/20 09:00 Room Air 09/28/20 08:00 97.9 97 20 110/72 (85) 97 09/28/20 06:40 97.9 09/28/20 04:00 97.9 99 20 109/67 (81) 100 09/28/20 03:05 98.0 09/28/20 00:00 98.0 93 18 111/69 (83) 100 09/27/20 21:00 Room Air 09/27/20 20:00 98.8 105 20 121/68 (85) 97 09/27/20 16:00 98.3 104 18 109/71 (84) 98 Intake and Output 09/27/20 09/28/20 19:00 07:00 Intake Total 600 ml Balance 600 ml Intake Oral 600 ml Current Medications Medications (Trade) Dose Ordered Sig/Santino Route PRN Reason Start Time Stop Time Status Last Admin Dose Admin Ciprofloxacin (Cipro 500mg tab) 500 mg DAILY ORAL 09/26/20 09:00 10/03/20 08:59 09/28/20 08:44 Folic Acid (Folate) 1 mg DAILY ORAL 09/26/20 09:00 10/26/20 08:59 09/28/20 08:44 Furosemide (Lasix) 20 mg DAILY IV 09/26/20 09:15 10/26/20 09:14 09/28/20 08:45 Lactulose (Cephulac) 20 gm DAILY ORAL 09/26/20 09:00 10/26/20 08:59 09/28/20 08:43 Levothyroxine Sodium (Synthroid) 25 mcg BEFORE BREAKFAST ORAL 09/26/20 06:30 10/26/20 06:29 09/28/20 06:08 Morphine Sulfate (Morphine Sulfate) 2 mg Q4H PRN IVP For Pain 09/25/20 21:45 10/02/20 21:44 09/28/20 06:08 Ondansetron HCl (Zofran) 4 mg Q4H PRN IVP Nausea & Vomiting 09/25/20 21:45 10/25/20 21:44 09/27/20 20:04 Pantoprazole (Protonix) 40 mg BID ORAL 09/26/20 18:00 10/26/20 08:59 09/28/20 08:40 Spironolactone (Aldactone) 50 mg DAILY ORAL 09/26/20 09:00 10/26/20 08:59 09/28/20 08:44 Laboratory Tests 09/28/20 05:00: White Blood Count 12.3H, Red Blood Count 2.75L, Hemoglobin 9.2L, Hematocrit 25.5L, Mean Corpuscular Volume 93, Mean Corpuscular Hemoglobin 33.5H, Mean Corpuscular Hemoglobin Concent 36.1H, Red Cell Distribution Width 19.6H, Platelet Count 84L, Mean Platelet Volume 7.3, Neutrophils (%) (Auto) , Lymphocytes (%) (Auto) , Monocytes (%) (Auto) , Eosinophils (%) (Auto) , Basophils (%) (Auto) , Differential Total Cells Counted 100, Neutrophils % (Manual) 87H, Lymphocytes % (Manual) 10L, Monocytes % (Manual) 2, Eosinophils % (Manual) 1, Basophils % (Manual) 0, Band Neutrophils 0, Platelet Estimate DecreasedL, Platelet Morphology Normal, Hypochromasia , Anisocytosis 2+, Sodium Level 131L, Potassium Level 3.5, Chloride Level 101, Carbon Dioxide Level 20L, Anion Gap 10, Blood Urea Nitrogen 13, Creatinine 1.0, Estimat Glomerular Filtration Rate > 60, Glucose Level 99, Uric Acid 3.6, Calcium Level 7.8L, Phosphorus Level 3.1, Magnesium Level 2.1, Total Bilirubin 18.2H, Direct Bilirubin 13.3H, Aspartate Amino Transf (AST/SGOT) 198H, Alanine Aminotransferase (ALT/SGPT) 130H, Alkaline Phosphatase 197H, Total Protein 7.3, Albumin 1.7L, Globulin 5.6, Albumin/Globulin Ratio 0.3L Height (Feet): 5 Height (Inches): 9.00 Weight (Pounds): 161 General Appearance: no apparent distress Cardiovascular: tachycardia Respiratory/Chest: decreased breath sounds Abdomen: distended Santo Pruitt MD Sep 28, 2020 12:25
[2020-09-28 16:00] VITALS: BP 115/69
[2020-09-28] MEDS ORDERED: Tubing IV Secondary IV ONE (16:15)
--- NOTE | 2020-09-28 17:45 | NUR ---
NURSE NOTES: Patient given zofran 4mg IVP had emesis of some undigested food.Call light within reach.
--- NOTE | 2020-09-28 17:56 | Surgery Progress Note ---
Surgery Progress Note Subjective Symptoms: improved, tolerating diet, passing flatus, BM Objective Last 24 Hour Vital Signs Date Time Temp Pulse Resp B/P (MAP) Pulse Ox O2 Delivery O2 Flow Rate FiO2 09/28/20 16:00 97.3 95 18 115/69 (84) 98 09/28/20 12:00 97.9 99 20 109/67 (81) 97 09/28/20 09:00 Room Air 09/28/20 08:00 97.9 97 20 110/72 (85) 97 09/28/20 06:40 97.9 09/28/20 04:00 97.9 99 20 109/67 (81) 100 09/28/20 03:05 98.0 09/28/20 00:00 98.0 93 18 111/69 (83) 100 09/27/20 21:00 Room Air 09/27/20 20:00 98.8 105 20 121/68 (85) 97 I&O Intake and Output 09/27/20 09/28/20 19:00 07:00 Intake Total 600 ml Balance 600 ml Intake Oral 600 ml Dressing: saturated Cardiovascular: RSR Respiratory: decreased breath sounds Abdomen: distended - fluid, non-tender, present bowel sounds Extremities: no edema, no tenderness, no cyanosis Laboratory Tests Test 09/28/20 05:00 White Blood Count 12.3 K/UL (4.8-10.8) H Red Blood Count 2.75 M/UL (4.70-6.10) L Hemoglobin 9.2 G/DL (14.2-18.0) L Hematocrit 25.5 % (42.0-52.0) L Mean Corpuscular Volume 93 FL (80-99) Mean Corpuscular Hemoglobin 33.5 PG (27.0-31.0) H Mean Corpuscular Hemoglobin Concent 36.1 G/DL (32.0-36.0) H Red Cell Distribution Width 19.6 % (11.6-14.8) H Platelet Count 84 K/UL (150-450) L Mean Platelet Volume 7.3 FL (6.5-10.1) Neutrophils (%) (Auto) % (45.0-75.0) Lymphocytes (%) (Auto) % (20.0-45.0) Monocytes (%) (Auto) % (1.0-10.0) Eosinophils (%) (Auto) % (0.0-3.0) Basophils (%) (Auto) % (0.0-2.0) Differential Total Cells Counted 100 Neutrophils % (Manual) 87 % (45-75) H Lymphocytes % (Manual) 10 % (20-45) L Monocytes % (Manual) 2 % (1-10) Eosinophils % (Manual) 1 % (0-3) Basophils % (Manual) 0 % (0-2) Band Neutrophils 0 % (0-8) Platelet Estimate Decreased L Platelet Morphology Normal Hypochromasia Anisocytosis 2+ Sodium Level 131 MMOL/L (136-145) L Potassium Level 3.5 MMOL/L (3.5-5.1) Chloride Level 101 MMOL/L (98-107) Carbon Dioxide Level 20 MMOL/L (21-32) L Anion Gap 10 mmol/L (5-15) Blood Urea Nitrogen 13 mg/dL (7-18) Creatinine 1.0 MG/DL (0.55-1.30) Estimat Glomerular Filtration Rate > 60 mL/min (>60) Glucose Level 99 MG/DL (74-106) Uric Acid 3.6 MG/DL (2.6-7.2) Calcium Level 7.8 MG/DL (8.5-10.1) L Phosphorus Level 3.1 MG/DL (2.5-4.9) Magnesium Level 2.1 MG/DL (1.8-2.4) Total Bilirubin 18.2 MG/DL (0.2-1.0) H Direct Bilirubin 13.3 MG/DL (0.0-0.3) H Aspartate Amino Transf (AST/SGOT) 198 U/L (15-37) H Alanine Aminotransferase (ALT/SGPT) 130 U/L (12-78) H Alkaline Phosphatase 197 U/L (46-116) H Total Protein 7.3 G/DL (6.4-8.2) Albumin 1.7 G/DL (3.4-5.0) L Globulin 5.6 g/dL Albumin/Globulin Ratio 0.3 (1.0-2.7) L Plan Problems: (1) Ascites (2) Tachycardia (3) Hyponatremia (4) Leukocytosis (5) Liver cirrhosis, alcoholic (6) Anemia (7) Alcoholic liver disease (8) Hepatitis C (9) GI bleed (10) Sepsis (11) GLENN (acute kidney injury) (12) Abdominal pain Assessment & Plan: This is a very pleasant 35-year-old male complaining of abdominal pain liver cirrhosis significantly cirrhotic with icterus jaundice. Patient states diffuse abdominal pain since discharge. Had a paracentesis today and feels significantly better. Nominal exam is fairly benign. Leukocytosis resolved. Unlikely spontaneous bacterial peritonitis. Nominal pain likely from fluid retention. Now the paracentesis feels better. Patient is fluid sent for microbiology follow-up. Antibiotics per infectious disease. No acute surgical intervention planned. Okay for diet. Activity as tolerated. Follow with recommendations trend labs thank you for your participate patient's care GI input appreciated Ultrasound used to localize optimal puncture site. Sterile prepping and draping including sterile ultrasound gel and probe cover. Local anesthesia with 1% lidocaine. Under real-time ultrasound guidance, the peritoneal space was punctured using a 5 Israeli Yueh catheter. Stylet removed. Catheter placed to vacuum bottle suction. Total 2.6 liters of fluid aspirated. Patient tolerated procedure well, without immediate complication. Findings: Followup sonography demonstrates near complete resolution of ascites with trace residual ascites. Impression: Successful ultrasound-guided paracentesis, yielding 2.6 liters of fluid Homer Delgado Sep 28, 2020 17:56
--- NOTE | 2020-09-28 19:50 | NUR ---
NURSE HAND-OFF: Lyn DENNY Important Events on Shift:[ Zofran given for nausea,morphine given for pain Patient Status: [] Diet: Low Sodium[] Pending Orders: []09/29/20 AM labsstable Pending Results/Labs:[] Pending MD notification:[] Latest Vital Signs: Temperature 97.3 , Pulse 95 , B/P 115 /69 , Respiratory Rate 18 , O2 SAT 98 , Room Air, O2 Flow Rate . Vital Sign Comment: [] Latest Julian Fall Score: 60 Fall Risk: High Risk Safety Measures: Call light Within Reach, Bed Alarm Zone 2, Side Rails Side Rails x2, Bed position Low and Locked. Fall Precautions:Patient ambulate with Cane. Yellow Socks Door Sign Patient Fall Education Report given to [].
[2020-09-28 20:00] VITALS: BP 121/77
--- NOTE | 2020-09-28 20:00 | NUR ---
NURSE NOTES: RECEIVED PATIENT LYING IN BED, AWAKE, ALERT/ORIENTED X4, VERBALLY RESPONSIVE, DENIES PAIN. NO SIGNS AND SYMPTOMS OF ACUTE CARDIO RESPIRATORY DISTRESS/SHORTNESS OF BREATH, DENIES CHEST PAIN, NO PERIPHERAL EDEMA NOTED. IV INTACT TO LEFT AC/GAUGE 20 SALINE LOCK, NO REDNESS/SWELLING NOTED TO SITE. NO COMPLAINTS OF GI DISCOMFORT, NO N/V/D, CONTINENT OF B/B, ASSISTIVE DEVICE AT BEDSIDE. SIDE RAILS UP X2 FOR MOBILITY, BED IN LOWEST POSITION, ENCOURAGED PATIENT TO UTILIZE CALL LIGHT FOR ASSISTANCE, VERBALIZED UNDERSTANDING. ISOLATION PRECAUTIONS OBSERVED AT ALL TIMES. CONTINUE WITH CURRENT PLAN OF CARE. NAD.
[2020-09-29] VITALS: BP 114/63
[2020-09-29 04:00] VITALS: BP 119/75
[2020-09-29 05:50] LABS: HEMATOCRIT 24.5 % (42.0-52.0); HEMOGLOBIN 8.9 G/DL (14.2-18.0); MEAN CORPUSCULAR VOLUME 92 FL (80-99); PLATELET COUNT 74 K/UL (150-450); RED BLOOD COUNT 2.66 M/UL (4.70-6.10); RED CELL DISTRIBUTION WIDTH 20.3 % (11.6-14.8); WHITE BLOOD COUNT 9.4 K/UL (4.8-10.8)
[2020-09-29 06:04] LABS: PHOSPHORUS 3.8 MG/DL (2.5-4.9)
[2020-09-29] MEDS: Levothyroxine 25mcg tab ORAL SCH (06:05)
[2020-09-29 06:12] LABS: ALANINE AMINOTRANSFERASE 123 U/L (12-78); ALBUMIN 1.6 G/DL (3.4-5.0); ALBUMIN/GLOBULIN RATIO 0.3 (1.0-2.7); ALKALINE PHOSPHATASE 190 U/L (46-116); ANION GAP 8 mmol/L (5-15); ASPARTATE AMINO TRANSFERASE 184 U/L (15-37); BLOOD UREA NITROGEN 14 mg/dL (7-18); CALCIUM 7.8 MG/DL (8.5-10.1); CARBON DIOXIDE 22 MMOL/L (21-32); CHLORIDE 100 MMOL/L (98-107); CREATININE 1.1 MG/DL (0.55-1.30); POTASSIUM 3.5 MMOL/L (3.5-5.1); SODIUM 129 MMOL/L (136-145)
[2020-09-29 06:22] LABS: BILIRUBIN,DIRECT 13.7 MG/DL (0.0-0.3)
--- NOTE | 2020-09-29 07:12 | NUR ---
NURSE HAND-OFF: Important Events on Shift:[UNEVENTFUL NIGHT, RESTED WELL, DENIED PAIN-PATIENT STATED THAT HE IS SCHEDULED FOR EGD AT [facility] ON WEDNESDAY] Patient Status: [STABLE, AFEBRILE] Diet: [LOW SODIUM DIET] Pending Orders: [AM LABS] Pending Results/Labs:[] Pending MD notification:[] Latest Vital Signs: Temperature 98.9 , Pulse 87 , B/P 119 /75 , Respiratory Rate 18 , O2 SAT 98 , Room Air, O2 Flow Rate . Vital Sign Comment: [STABLE, AFEBRILE] Latest Julian Fall Score: 60 Fall Risk: High Risk Safety Measures: Call light Within Reach, Bed Alarm Zone 2, Side Rails Side Rails x2, Bed position Low and Locked. Fall Precautions: Yellow Socks Door Sign Patient Fall Education Report given to [CAROLINA GÓMEZ].
[2020-09-29 08:00] VITALS: BP 104/67
--- NOTE | 2020-09-29 08:26 | NUR ---
NURSE NOTES: Patient alert and oriented,respirations unlabored.02 sat on room air 99%.Breakfast at bedside patient wants to rest a little more before eating breakfast.Will monitor.Call light within reach.
--- NOTE | 2020-09-29 09:11 | General Progress Note ---
Subjective Allergies: Coded Allergies: No Known Allergies (Unverified , 09/19/20) All Systems: reviewed and negative except above Subjective sleepy calm Objective Last 24 Hour Vital Signs Date Time Temp Pulse Resp B/P (MAP) Pulse Ox O2 Delivery O2 Flow Rate FiO2 09/29/20 04:00 98.9 87 18 119/75 (90) 98 09/29/20 00:00 97.7 84 18 114/63 (80) 99 09/28/20 21:18 Room Air 09/28/20 20:00 97.6 89 18 121/77 (92) 96 09/28/20 16:00 97.3 95 18 115/69 (84) 98 09/28/20 12:00 97.9 99 20 109/67 (81) 97 Intake and Output 09/28/20 09/29/20 19:00 07:00 Intake Total 240 ml 480 ml Output Total 400 ml 500 ml Balance -160 ml -20 ml Intake Oral 240 ml 480 ml Output Urine Total 400 ml 500 ml # Bowel Movements 1 Laboratory Tests 09/29/20 04:50: White Blood Count 9.4, Red Blood Count 2.66L, Hemoglobin 8.9L, Hematocrit 24.5L, Mean Corpuscular Volume 92, Mean Corpuscular Hemoglobin 33.5H, Mean Corpuscular Hemoglobin Concent 36.4H, Red Cell Distribution Width 20.3H, Platelet Count 74L, Mean Platelet Volume 7.6, Neutrophils (%) (Auto) , Lymphocytes (%) (Auto) , Monocytes (%) (Auto) , Eosinophils (%) (Auto) , Basophils (%) (Auto) , Neutrophils % (Manual) [Pending], Lymphocytes % (Manual) [Pending], Platelet Estimate [Pending], Platelet Morphology [Pending], Sodium Level 129L, Potassium Level 3.5, Chloride Level 100, Carbon Dioxide Level 22, Anion Gap 8, Blood Urea Nitrogen 14, Creatinine 1.1, Estimat Glomerular Filtration Rate > 60, Glucose Level 98, Calcium Level 7.8L, Phosphorus Level 3.8, Magnesium Level 1.9, Total Bilirubin 19.0H, Direct Bilirubin 13.7H, Aspartate Amino Transf (AST/SGOT) 184H, Alanine Aminotransferase (ALT/SGPT) 123H, Alkaline Phosphatase 190H, Total Protein 7.1, Albumin 1.6L, Globulin 5.5, Albumin/Globulin Ratio 0.3L Height (Feet): 5 Height (Inches): 9.00 Weight (Pounds): 161 General Appearance: lethargic EENT: normal ENT inspection Neck: normal alignment Cardiovascular: normal peripheral pulses, normal rate, regular rhythm Respiratory/Chest: chest wall non-tender, lungs clear, normal breath sounds Abdomen: normal bowel sounds, non tender, soft Extremities: normal inspection Edema: no edema noted Arm (L), no edema noted Arm (R), no edema noted Leg (L), no edema noted Leg (R), no edema noted Pedal (L), no edema noted Pedal (R), no edema noted Generalized Neurologic: motor weakness Skin: normal pigmentation, warm/dry Assessment/Plan Problem List: (1) Hyponatremia ICD Codes: E87.1 - Hypo-osmolality and hyponatremia SNOMED: 55183061 (2) Leukocytosis ICD Codes: D72.829 - Elevated white blood cell count, unspecified SNOMED: 286037803, 415795800 (3) Liver cirrhosis, alcoholic ICD Codes: K70.30 - Alcoholic cirrhosis of liver without ascites SNOMED: 470710702 (4) Anemia ICD Codes: D64.9 - Anemia, unspecified SNOMED: 693016578 (5) Alcoholic liver disease ICD Codes: K70.9 - Alcoholic liver disease, unspecified SNOMED: 57533034 (6) Abdominal pain ICD Codes: R10.9 - Unspecified abdominal pain SNOMED: 97525049 Status: stable, progressing Assessment/Plan: pt diet abx gi f/u cbc bmp am dc plan if clear James Coy DO Sep 29, 2020 09:11
[2020-09-29] MEDS: Lactulose 20gm/30ml UDC ORAL SCH (09:37)
[2020-09-29] MEDS: Spironolactone 50mg tab ORAL SCH (09:38)
[2020-09-29] MEDS: Ciprofloxacin 500mg tab ORAL SCH (09:38)
--- NOTE | 2020-09-29 10:53 | Infectious Diseases Prog Note ---
Assessment/Plan 35yo M with: Afebrile Leukocytosis, SP - likely reactive Abd pain and distension, s/p 2.6 L paracentesis 09/25 R/o SBP 09/19 BCx neg, UCx neg 09/25 Ascites fluid - 190 RBC, zero WBC --> unlikely infected COVID screen 09/19 CXR neg 09/20 Rapid COVID neg 09/26 COVID PCR p UGIB 2ry to ulcer 09/20 EGD: 1. Status post successful Hemoclip-assistance hemostasis of ulcer at the GE junction. Portal hypertensive gastropathy. No obvious esophageal or gastric varices. EtOH and Hep C cirrhosis Needs 6 mo sobriety from EtOH prior to placement on transplant list. Last drink was Jun 20, 2020. Plan: Cont cipro 500mg PO daily for SBP ppx (pt on this at home) OK to d/c from ID standpoint, s/p paracentesis, low s/f SBP given cell count F/u COVID PCR 09/26, screening Monitor CBC/CMP Monitor temp curve, hemodynamics Monitor resp status D/w RN Thank you for this consult. [facility] will continue to follow. Subjective Allergies: Coded Allergies: No Known Allergies (Unverified , 09/19/20) no acute event Objective Last 24 Hour Vital Signs Date Time Temp Pulse Resp B/P (MAP) Pulse Ox O2 Delivery O2 Flow Rate FiO2 09/29/20 04:00 98.9 87 18 119/75 (90) 98 09/29/20 00:00 97.7 84 18 114/63 (80) 99 09/28/20 21:18 Room Air 09/28/20 20:00 97.6 89 18 121/77 (92) 96 09/28/20 16:00 97.3 95 18 115/69 (84) 98 09/28/20 12:00 97.9 99 20 109/67 (81) 97 Height (Feet): 5 Height (Inches): 9.00 Weight (Pounds): 161 HEENT: atraumatic Respiratory/Chest: normal breath sounds Cardiovascular: regular rhythm Abdomen: soft, non tender Laboratory Tests Test 09/29/20 04:50 White Blood Count 9.4 K/UL (4.8-10.8) Red Blood Count 2.66 M/UL (4.70-6.10) L Hemoglobin 8.9 G/DL (14.2-18.0) L Hematocrit 24.5 % (42.0-52.0) L Mean Corpuscular Volume 92 FL (80-99) Mean Corpuscular Hemoglobin 33.5 PG (27.0-31.0) H Mean Corpuscular Hemoglobin Concent 36.4 G/DL (32.0-36.0) H Red Cell Distribution Width 20.3 % (11.6-14.8) H Platelet Count 74 K/UL (150-450) L Mean Platelet Volume 7.6 FL (6.5-10.1) Neutrophils (%) (Auto) % (45.0-75.0) Lymphocytes (%) (Auto) % (20.0-45.0) Monocytes (%) (Auto) % (1.0-10.0) Eosinophils (%) (Auto) % (0.0-3.0) Basophils (%) (Auto) % (0.0-2.0) Neutrophils % (Manual) Pending Lymphocytes % (Manual) Pending Platelet Estimate Pending Platelet Morphology Pending Sodium Level 129 MMOL/L (136-145) L Potassium Level 3.5 MMOL/L (3.5-5.1) Chloride Level 100 MMOL/L (98-107) Carbon Dioxide Level 22 MMOL/L (21-32) Anion Gap 8 mmol/L (5-15) Blood Urea Nitrogen 14 mg/dL (7-18) Creatinine 1.1 MG/DL (0.55-1.30) Estimat Glomerular Filtration Rate > 60 mL/min (>60) Glucose Level 98 MG/DL (74-106) Calcium Level 7.8 MG/DL (8.5-10.1) L Phosphorus Level 3.8 MG/DL (2.5-4.9) Magnesium Level 1.9 MG/DL (1.8-2.4) Total Bilirubin 19.0 MG/DL (0.2-1.0) H Direct Bilirubin 13.7 MG/DL (0.0-0.3) H Aspartate Amino Transf (AST/SGOT) 184 U/L (15-37) H Alanine Aminotransferase (ALT/SGPT) 123 U/L (12-78) H Alkaline Phosphatase 190 U/L (46-116) H Total Protein 7.1 G/DL (6.4-8.2) Albumin 1.6 G/DL (3.4-5.0) L Globulin 5.5 g/dL Albumin/Globulin Ratio 0.3 (1.0-2.7) L Current Medications Medications (Trade) Dose Ordered Sig/Santino Route PRN Reason Start Time Stop Time Status Last Admin Dose Admin Ciprofloxacin (Cipro 500mg tab) 500 mg DAILY ORAL 09/26/20 09:00 10/03/20 08:59 09/29/20 09:38 Folic Acid (Folate) 1 mg DAILY ORAL 09/26/20 09:00 10/26/20 08:59 09/29/20 09:38 Furosemide (Lasix) 20 mg DAILY IV 09/26/20 09:15 10/26/20 09:14 09/29/20 09:38 Lactulose (Cephulac) 20 gm DAILY ORAL 09/26/20 09:00 10/26/20 08:59 09/29/20 09:37 Levothyroxine Sodium (Synthroid) 25 mcg BEFORE BREAKFAST ORAL 09/26/20 06:30 10/26/20 06:29 09/29/20 06:05 Morphine Sulfate (Morphine Sulfate) 2 mg Q4H PRN IVP For Pain 09/25/20 21:45 10/02/20 21:44 09/28/20 13:42 Ondansetron HCl (Zofran) 4 mg Q4H PRN IVP Nausea & Vomiting 09/25/20 21:45 10/25/20 21:44 09/28/20 17:42 Pantoprazole (Protonix) 40 mg BID ORAL 09/26/20 18:00 10/26/20 08:59 09/29/20 09:37 Spironolactone (Aldactone) 50 mg DAILY ORAL 09/26/20 09:00 10/26/20 08:59 09/29/20 09:38 Sahil Beltran MD Sep 29, 2020 10:53
--- NOTE | 2020-09-29 10:55 | General Progress Note ---
Subjective ROS Limited/Unobtainable: Yes Allergies: Coded Allergies: No Known Allergies (Unverified , 09/19/20) Objective Last 24 Hour Vital Signs Date Time Temp Pulse Resp B/P (MAP) Pulse Ox O2 Delivery O2 Flow Rate FiO2 09/29/20 08:00 98.4 93 18 104/67 (79) 99 09/29/20 04:00 98.9 87 18 119/75 (90) 98 09/29/20 00:00 97.7 84 18 114/63 (80) 99 09/28/20 21:18 Room Air 09/28/20 20:00 97.6 89 18 121/77 (92) 96 09/28/20 16:00 97.3 95 18 115/69 (84) 98 09/28/20 12:00 97.9 99 20 109/67 (81) 97 Intake and Output 09/28/20 09/29/20 19:00 07:00 Intake Total 240 ml 480 ml Output Total 400 ml 500 ml Balance -160 ml -20 ml Intake Oral 240 ml 480 ml Output Urine Total 400 ml 500 ml # Bowel Movements 1 Laboratory Tests 09/29/20 04:50: White Blood Count 9.4, Red Blood Count 2.66L, Hemoglobin 8.9L, Hematocrit 24.5L, Mean Corpuscular Volume 92, Mean Corpuscular Hemoglobin 33.5H, Mean Corpuscular Hemoglobin Concent 36.4H, Red Cell Distribution Width 20.3H, Platelet Count 74L, Mean Platelet Volume 7.6, Neutrophils (%) (Auto) , Lymphocytes (%) (Auto) , Monocytes (%) (Auto) , Eosinophils (%) (Auto) , Basophils (%) (Auto) , Neutrophils % (Manual) [Pending], Lymphocytes % (Manual) [Pending], Platelet Estimate [Pending], Platelet Morphology [Pending], Sodium Level 129L, Potassium Level 3.5, Chloride Level 100, Carbon Dioxide Level 22, Anion Gap 8, Blood Urea Nitrogen 14, Creatinine 1.1, Estimat Glomerular Filtration Rate > 60, Glucose Level 98, Calcium Level 7.8L, Phosphorus Level 3.8, Magnesium Level 1.9, Total Bilirubin 19.0H, Direct Bilirubin 13.7H, Aspartate Amino Transf (AST/SGOT) 184H, Alanine Aminotransferase (ALT/SGPT) 123H, Alkaline Phosphatase 190H, Total Protein 7.1, Albumin 1.6L, Globulin 5.5, Albumin/Globulin Ratio 0.3L Height (Feet): 5 Height (Inches): 9.00 Weight (Pounds): 161 General Appearance: no apparent distress EENT: PERRL/EOMI Neck: supple Cardiovascular: normal rate Respiratory/Chest: lungs clear Abdomen: soft, hypoactive bowel sounds, distended Extremities: non-tender Assessment/Plan Problem List: (1) Hepatitis C ICD Codes: B19.20 - Unspecified viral hepatitis C without hepatic coma SNOMED: 44673400 (2) Alcoholic liver disease ICD Codes: K70.9 - Alcoholic liver disease, unspecified SNOMED: 55542271 (3) Anemia ICD Codes: D64.9 - Anemia, unspecified SNOMED: 642258982 (4) Liver cirrhosis, alcoholic ICD Codes: K70.30 - Alcoholic cirrhosis of liver without ascites SNOMED: 302611070 (5) Ascites ICD Codes: R18.8 - Other ascites SNOMED: 081934540 (6) GI bleed ICD Codes: K92.2 - Gastrointestinal hemorrhage, unspecified SNOMED: 17244611 (7) Hyponatremia ICD Codes: E87.1 - Hypo-osmolality and hyponatremia SNOMED: 70134650 Status: stable, progressing Assessment/Plan: s/p recent EGD VIT K repeat labs lasix 20 mg and aldactone 50 mg>> will increase as tolerated s/p paracentesis 2 gm sodium diet Arpit Reyez MD Sep 29, 2020 10:55
--- NOTE | 2020-09-29 11:30 | NUR ---
NURSE NOTES: Patient voice concern regarding he has an appointment on Wednesday and he has already had to cancel once,but can not miss this appointment.DR Delgado here to see patient and aware.Will follow up.
--- NOTE | 2020-09-29 11:32 | Surgery Progress Note ---
Surgery Progress Note Subjective Additional Comments improved feels well wants to go home today okay for d/c from surgical standpoint Objective Last 24 Hour Vital Signs Date Time Temp Pulse Resp B/P (MAP) Pulse Ox O2 Delivery O2 Flow Rate FiO2 09/29/20 08:00 98.4 93 18 104/67 (79) 99 09/29/20 04:00 98.9 87 18 119/75 (90) 98 09/29/20 00:00 97.7 84 18 114/63 (80) 99 09/28/20 21:18 Room Air 09/28/20 20:00 97.6 89 18 121/77 (92) 96 09/28/20 16:00 97.3 95 18 115/69 (84) 98 09/28/20 12:00 97.9 99 20 109/67 (81) 97 I&O Intake and Output 09/28/20 09/29/20 19:00 07:00 Intake Total 240 ml 480 ml Output Total 400 ml 500 ml Balance -160 ml -20 ml Intake Oral 240 ml 480 ml Output Urine Total 400 ml 500 ml # Bowel Movements 1 Cardiovascular: RSR Respiratory: decreased breath sounds Abdomen: soft, non-tender, present bowel sounds Extremities: no tenderness, no cyanosis Laboratory Tests Test 09/29/20 04:50 White Blood Count 9.4 K/UL (4.8-10.8) Red Blood Count 2.66 M/UL (4.70-6.10) L Hemoglobin 8.9 G/DL (14.2-18.0) L Hematocrit 24.5 % (42.0-52.0) L Mean Corpuscular Volume 92 FL (80-99) Mean Corpuscular Hemoglobin 33.5 PG (27.0-31.0) H Mean Corpuscular Hemoglobin Concent 36.4 G/DL (32.0-36.0) H Red Cell Distribution Width 20.3 % (11.6-14.8) H Platelet Count 74 K/UL (150-450) L Mean Platelet Volume 7.6 FL (6.5-10.1) Neutrophils (%) (Auto) % (45.0-75.0) Lymphocytes (%) (Auto) % (20.0-45.0) Monocytes (%) (Auto) % (1.0-10.0) Eosinophils (%) (Auto) % (0.0-3.0) Basophils (%) (Auto) % (0.0-2.0) Neutrophils % (Manual) Pending Lymphocytes % (Manual) Pending Platelet Estimate Pending Platelet Morphology Pending Sodium Level 129 MMOL/L (136-145) L Potassium Level 3.5 MMOL/L (3.5-5.1) Chloride Level 100 MMOL/L (98-107) Carbon Dioxide Level 22 MMOL/L (21-32) Anion Gap 8 mmol/L (5-15) Blood Urea Nitrogen 14 mg/dL (7-18) Creatinine 1.1 MG/DL (0.55-1.30) Estimat Glomerular Filtration Rate > 60 mL/min (>60) Glucose Level 98 MG/DL (74-106) Calcium Level 7.8 MG/DL (8.5-10.1) L Phosphorus Level 3.8 MG/DL (2.5-4.9) Magnesium Level 1.9 MG/DL (1.8-2.4) Total Bilirubin 19.0 MG/DL (0.2-1.0) H Direct Bilirubin 13.7 MG/DL (0.0-0.3) H Aspartate Amino Transf (AST/SGOT) 184 U/L (15-37) H Alanine Aminotransferase (ALT/SGPT) 123 U/L (12-78) H Alkaline Phosphatase 190 U/L (46-116) H Total Protein 7.1 G/DL (6.4-8.2) Albumin 1.6 G/DL (3.4-5.0) L Globulin 5.5 g/dL Albumin/Globulin Ratio 0.3 (1.0-2.7) L Plan Problems: (1) Ascites (2) Tachycardia (3) Hyponatremia (4) Leukocytosis (5) Liver cirrhosis, alcoholic (6) Anemia (7) Alcoholic liver disease (8) Hepatitis C (9) GI bleed (10) Sepsis (11) GLENN (acute kidney injury) (12) Abdominal pain Assessment & Plan: This is a very pleasant 35-year-old male complaining of abdominal pain liver cirrhosis significantly cirrhotic with icterus jaundice. Patient states diffuse abdominal pain since discharge. Had a paracentesis today and feels significantly better. Nominal exam is fairly benign. Leukocytosis resolved. Unlikely spontaneous bacterial peritonitis. Nominal pain likely from fluid retention. Now the paracentesis feels better. Patient is fluid sent for microbiology follow-up. Antibiotics per infectious disease. No acute surgical intervention planned. Okay for diet. Activity as tolerated. Follow with recommendations trend labs thank you for your participate patient's care GI input appreciated Ultrasound used to localize optimal puncture site. Sterile prepping and draping including sterile ultrasound gel and probe cover. Local anesthesia with 1% lidocaine. Under real-time ultrasound guidance, the peritoneal space was punctured using a 5 [employer] catheter. Stylet removed. Catheter placed to vacuum bottle suction. Total 2.6 liters of fluid aspirated. Patient tolerated procedure well, without immediate complication. Findings: Followup sonography demonstrates near complete resolution of ascites with trace residual ascites. Impression: Successful ultrasound-guided paracentesis, yielding 2.6 liters of fluid Homer Delgado Sep 29, 2020 11:32
[2020-09-29 12:00] VITALS: BP 107/67
--- NOTE | 2020-09-29 12:53 | NUR ---
CASE MANAGEMENT:REVIEW 09/29/20 SI: HEP C. ETOH LIVER CIRRHOSIS. ASCITES S/P PARACENTESIS ~ 2.6 L 98.4 93 18 104/67 99% ON RA PLT-74 NA-129 IS: IV LASIX QD PROTONIX PO BID ALDACTONE PO QD LACTULOSE PO QD CIPRO PO QD SYNTHROID PO QAM IV MORPHINE Q4HRS PRN : MED/SURG 4 EAST DCP; FROM HOME PLAN: NOVEL COVID SWAB PENDING
--- NOTE | 2020-09-29 14:07 | Nephrology Progress Note ---
Assessment/Plan Problem List: (1) Hyponatremia (2) Hepatitis C (3) Alcoholic liver disease (4) GI bleed (5) Anemia (6) Jaundice Assessment Hyponatremia Liver cirrhosis, alcoholic, hep C Ascites Tachycardia Leukocytosis, sepsis History of GI bleed and anemia Plan September 29: Labs reviewed. Serum sodium 129. Patient needs to be on fluid restriction. Continue to monitor electrolytes while inpatient or as an outpatient. Stable from renal standpoint of view. If discharged follow-up as an outpatient by PMD/dual rate supervisor. September 28: Labs reviewed. Serum sodium up to 131. Continue current management and monitor electrolytes. Continue per consultants. Hydrate, trial of 3% saline Slow diuresis Monitor electrolytes Protonix Monitor hemoglobin and hematocrit Per GI Per consultants Per orders Subjective ROS Limited/Unobtainable: No Constitutional: Reports: malaise Objective Objective Last 24 Hour Vital Signs Date Time Temp Pulse Resp B/P (MAP) Pulse Ox O2 Delivery O2 Flow Rate FiO2 09/29/20 12:00 98.1 99 18 107/67 (80) 97 09/29/20 09:00 Room Air 09/29/20 08:00 98.4 93 18 104/67 (79) 99 09/29/20 04:00 98.9 87 18 119/75 (90) 98 09/29/20 00:00 97.7 84 18 114/63 (80) 99 09/28/20 21:18 Room Air 09/28/20 20:00 97.6 89 18 121/77 (92) 96 09/28/20 16:00 97.3 95 18 115/69 (84) 98 Intake and Output 09/28/20 09/29/20 19:00 07:00 Intake Total 240 ml 480 ml Output Total 400 ml 500 ml Balance -160 ml -20 ml Intake Oral 240 ml 480 ml Output Urine Total 400 ml 500 ml # Bowel Movements 1 Current Medications Medications (Trade) Dose Ordered Sig/Santino Route PRN Reason Start Time Stop Time Status Last Admin Dose Admin Ciprofloxacin (Cipro 500mg tab) 500 mg DAILY ORAL 09/26/20 09:00 10/03/20 08:59 09/29/20 09:38 Folic Acid (Folate) 1 mg DAILY ORAL 09/26/20 09:00 10/26/20 08:59 09/29/20 09:38 Furosemide (Lasix) 20 mg DAILY IV 09/26/20 09:15 10/26/20 09:14 09/29/20 09:38 Lactulose (Cephulac) 20 gm DAILY ORAL 09/26/20 09:00 10/26/20 08:59 09/29/20 09:37 Levothyroxine Sodium (Synthroid) 25 mcg BEFORE BREAKFAST ORAL 09/26/20 06:30 10/26/20 06:29 09/29/20 06:05 Morphine Sulfate (Morphine Sulfate) 2 mg Q4H PRN IVP For Pain 09/25/20 21:45 10/02/20 21:44 09/28/20 13:42 Ondansetron HCl (Zofran) 4 mg Q4H PRN IVP Nausea & Vomiting 09/25/20 21:45 10/25/20 21:44 09/29/20 12:57 Pantoprazole (Protonix) 40 mg BID ORAL 09/26/20 18:00 10/26/20 08:59 09/29/20 09:37 Spironolactone (Aldactone) 50 mg DAILY ORAL 09/26/20 09:00 10/26/20 08:59 09/29/20 09:38 Laboratory Tests 09/29/20 04:50: White Blood Count 9.4, Red Blood Count 2.66L, Hemoglobin 8.9L, Hematocrit 24.5L, Mean Corpuscular Volume 92, Mean Corpuscular Hemoglobin 33.5H, Mean Corpuscular Hemoglobin Concent 36.4H, Red Cell Distribution Width 20.3H, Platelet Count 74L, Mean Platelet Volume 7.6, Neutrophils (%) (Auto) , Lymphocytes (%) (Auto) , Mo nocytes (%) (Auto) , Eosinophils (%) (Auto) , Basophils (%) (Auto) , Differential Total Cells Counted 100, Neutrophils % (Manual) 80H, Lymphocytes % (Manual) 10L, Monocytes % (Manual) 10, Eosinophils % (Manual) 0, Basophils % (Manual) 0, Band Neutrophils 0, Platelet Estimate DecreasedL, Platelet Morphology Normal, Anisocytosis 2+, Sodium Level 129L, Potassium Level 3.5, Chloride Level 100, Carbon Dioxide Level 22, Anion Gap 8, Blood Urea Nitrogen 14, Creatinine 1.1, Estimat Glomerular Filtration Rate > 60, Glucose Level 98, Calcium Level 7.8L, Phosphorus Level 3.8, Magnesium Level 1.9, Total Bilirubin 19.0H, Direct Bilirubin 13.7H, Aspartate Amino Transf (AST/SGOT) 184H, Alanine Aminotransferase (ALT/SGPT) 123H, Alkaline Phosphatase 190H, Total Protein 7.1, Albumin 1.6L, Globulin 5.5, Albumin/Globulin Ratio 0.3L Height (Feet): 5 Height (Inches): 9.00 Weight (Pounds): 161 General Appearance: no apparent distress Cardiovascular: tachycardia Respiratory/Chest: decreased breath sounds Abdomen: distended Santo Pruitt MD Sep 29, 2020 14:07
[2020-09-29] MEDS: Morphine Sulfate 2mg/ml Inj(IV/IM USE ONLY) IVP PRN (15:56)
[2020-09-29 16:00] VITALS: BP 108/70
--- NOTE | 2020-09-29 16:09 | NUR ---
NURSE NOTES: Patient will discharge home,his cousin will be able to pick him up between 5-530 p m.
--- NOTE | 2020-09-29 19:45 | NUR ---
NURSE HAND-OFF: BAYLEE RN Important Events on Shift: Patient Status: []uneve ntful Diet: []low sodium Pending Orders: Pending DIscharge with clarification./[] Pending Results/Labs:[] Pending MD notification:[] Latest Vital Signs: Temperature 98.1 , Pulse 102 , B/P 108 /70 , Respiratory Rate 18 , O2 SAT 97 , Room Air, O2 Flow Rate . Vital Sign Comment: [] Latest Julian Fall Score: 60 Fall Risk: High Risk Safety Measures: Call light Within Reach, Bed Alarm Zone 2, Side Rails Side Rails x2, Bed position Low and Locked. Fall Precautions: Yellow Socks Door Sign Patient Fall Education Report given to [].
--- NOTE | 2020-09-29 20:24 | NUR ---
NURSE NOTES: DR Coy notified regarding clarification on Consult from DR Davis.Attempts were made to notify DR Davis regarding consult but no response.DR Coy gave order to Discharge patient home.patient has discharge medication at home.Discharge instructions given.Patient calling family regarding discharge.
[2020-09-29] MEDS ORDERED: D5 1/2NS 1000ml IV ONE (21:03)
--- NOTE | 2020-09-29 21:04 | NUR ---
NURSE NOTES: The Patient was discharged home and was pickup by family. He is alert and oriented x4 and does not appear to be in distress at this time. Belonging list was signed by the patient as indicated.Will continue to monitor
--- NOTE | 2020-10-01 11:53 | Discharge Summary ---
Discharge Summary Discharge Summary _ DATE OF ADMISSION: 09/25/2020 DATE OF DISCHARGE: 09/29/2020 DISCHARGED BY: Dr Coy REASON FOR ADMISSION: 35 years old male with history of liver failure and cirrhosis secondary to alcohol abuse , was recently discharged from [facility] for concern of GI bleeding. Patient reported that in the morning he developed diffuse abdominal pain and felt that he was retaining fluid. He reported paracentesis done about a month ago. Patient was using diuretic without significant help. Upon evaluation patient was tachycardic with heart rate 114 , otherwise vital signs were stable. Laboratory work-up revealed leukocytosis WBC 16.8 , hemoglobin 10.7 , hematocrit 30.7 , platelet count 101. INR 2.0. Sodium 129, potassium 3.5. BUN 12, creatinine 1.1. AST 233 , ALT 143 Albumin 1.9. Patient undergone paracentesis yielding 2.6 L of fluid. Patient admitted for hyponatremia, tachycardia and leukocytosis. CONSULTANTS: ID specialist Dr. Au GI specialist Dr. Reyez wardrobe specialist Dr. Pruitt surgery Dr. Delgado [facility] COURSE: Patient admitted to medical surgical floor. Ascitic fluid was clear , no evidence of infection . patient remained afebrile . rapid COVID-19 was negative. Patient was on empiric antibiotic for prophylaxis of spontaneous bacterial peritonitis / on Cipro, as at home. Leukocytosis resolved . Given cell count very low probability of SBP . ID cleared patient for discharge. General surgeon closely followed. Post paracentesis ultrasound revealed near complete resolution of ascites with a trace of residual ascites. Abdominal exam remained fairly benign. No acute surgical intervention was necessary . Patient continued on diuresis. Patient also was hydrated and received trial of 3% of saline. GI prophylaxis provided. Hyponatremia improved Creatinine remained stable . Manager Telemetry recommended outpatient follow-up with primary care provider and wardrobe specialist. Patient was able to tolerate 2 g sodium diet. Patient received additional vitamin K. Lasix and Aldactone continued and titrated per GI specialist as tolerated. Hemoglobin and hematocrit were closely monitored with goal to keep hemoglobin above 7 . Prior to discharge hemoglobin 8.9, hematocrit 24.5 . Hepatitis panel was negative. LFT slightly trended down, still remained significantly elevated along with bilirubin. Patient clinically stabilized and was ready for discharge. Patient was counseled to continue abstinence from ETOH. FINAL DIAGNOSES: Alcoholic liver cirrhosis Ascites, status post paracentesis Hyponatremia Leukocytosis, likely reactive Tachycardia -resolved History of GI bleeding Anemia DISCHARGE MEDICATIONS: See Medication Reconciliation list. DISCHARGE INSTRUCTIONS: Patient was discharged home. Follow-up with a primary care provider in 1 week. I have been assigned to dictate discharge summary for this account. I was not involved in the patient's management. Kristen Zuniga NP Oct 01, 2020 11:53
== END 2020-09-29 21:04 | disposition home or self-care (01) | DRG 280 ==
LOC: EMR 12:50 → 3E 14:23 → EDBEDREQ 18:47 → 3E 20:02 → 4E 09-27 23:10
PROC: 0W9G3ZZ Drainage of Peritoneal Cavity, Percutaneous Approach (ICD-10-PCS; principal; 2020-09-25)
DX: K70.31 Alcoholic cirrhosis of liver with ascites (principal); E87.1 Hypo-osmolality and hyponatremia; K92.2 Gastrointestinal hemorrhage, unspecified; A41.9 Sepsis, unspecified organism; B19.20 Unspecified viral hepatitis C without hepatic coma; D64.9 Anemia, unspecified; F10.10 Alcohol abuse, uncomplicated; K76.6 Portal hypertension; K31.89 Other diseases of stomach and duodenum
CPT/HCPCS: 36415; 76942; 80048; 80053; 80061; 81001; 82140; 82248; 82607; 82728; 82746; 82977; 83540; 83550; 83690; 83735; 83880; 84100; 84300; 84550; 85007; 85025; 85610; 85730; 86140; 86705; 86709; 86803; 87081; 87086; 87340; 89051; 96365; 99285; J2405; J3430